=== PATIENT | female | born 1930 | race Caucasian/White ===

== ENCOUNTER 2016-06-01 10:42 | Emergency (ER) | payer OTHER ==
[~2016-06-01] VITALS: Ht 147.3 cm; Wt 45.3 kg
[~2016-06-01 10:42] MED LIST: AMLO10 PO; ASPI81 PO; BISA10SU8 PR; FOSA70TA PO; LEVO75TA3 PO; LISI10TA PO; MAGN1SOL2 PO; MULT1TAB46 PO; OMEP20CA5 PO; OXYB5TAB33 PO; PACE200T4 PO; POLY119S PO; TIMO0.5S29 OP; ZOCO40TA PO
[2016-06-01 10:54] VITALS: BP_SYST 148; BP_SYST 155; BP_DIAS 48; BP_DIAS 59; PULSE 64; RESP 16; TEMP 97.5; O2SAT 97
[2016-06-01] MEDS ORDERED: MULTTAB67 PO (11:48)
[2016-06-01] MEDS ORDERED: OXYB5TAB10 PO (11:48)
[2016-06-01] MEDS ORDERED: MIRA33504 PO (11:48)
[2016-06-01] MEDS ORDERED: LEVO75TA3 PO (11:48)
[2016-06-01] MEDS ORDERED: OMEP40CA2 PO (11:48)
[2016-06-01] MEDS ORDERED: LISI10TA PO (11:50)
[2016-06-01] MEDS ORDERED: AMIO200T PO (11:53)
[2016-06-01] MEDS ORDERED: AMLO10 PO (11:53)
[2016-06-01] MEDS ORDERED: FOSA70TA PO (11:53)
--- NOTE | 2016-06-01 12:15 | PD ---
HPI Chief Complaint: Fall Time Seen by Provider: 11:55 Travel History International Travel<30 days: No Contact w/Intl Traveler<30days: No Traveled to known affect area: No History of Present Illness HPI Patient is an 85-year-old female who presents to emergency room with complaints of right-sided toe pain after fall today. Patient reports that she tripped over her cat last night, reports that when she fell, she landed on her right side. Patient adamently denies any trauma or injury to her head/neck. Reports no LOC. Patient does take a baby asa daily. Patient reports that she was able to ambulate after her fall. Denies any hip pain. Patient reports that she woke up this morning and had increased pain and swelling to her right big toe. Denies ankle pain. Patient with no other c/o. Denies neck pain/back pain/ abdominal pain. PFSH Past Medical History Hx Anticoagulant Therapy: Yes (asa 81mg) Arthritis: Yes Asthma: No Autoimmune Disease: No Blood Disorders: No Anxiety: Yes Depression: No Heart Rhythm Problems: No Cancer: No Cardiovascular Problems: Yes (htn on meds) High Cholesterol: Yes Chemotherapy: Yes Chest Pain: No Congestive Heart Failure: No COPD: No Cerebrovascular Accident: No Diabetes: No Diminished Hearing: Yes ([place]) Endocrine: No Gastrointestinal Disorders: Yes (COLITIS, abd hernia not repaired) GERD: Yes Glaucoma: Yes Genitourinary: No Headaches: No Hepatitis: No Hiatal Hernia: No Hypertension: Yes Kidney Stones: Yes Musculoskeletal: Yes Neurologic: No Psychiatric: No Reproductive: No Respiratory: Yes (THROAT IRRITATION/MUCUS) Myocardial Infarction: No Radiation Therapy: No Renal Failure: No Seizures: No Sickle Cell Disease: No Sleep Apnea: No Thyroid Disease: Yes Ulcer: No Tetanus Vaccination: < 5 Years Influenza Vaccination: No ?: Not Menopausal: Yes : 5 Para: 2 Miscarriage: 3 : 0 Tubal Ligation: Yes Past Surgical History Abdominal Surgery: Yes ([facility] / C-SECTIONS X2 ) AICD: No Section: Yes ("two " one child only lived for one week) Cholecystectomy: Yes Eye Surgery: Yes (right cataract surgery) Pacemaker: No Other Surgery: Yes (ULCER ON NECK) Social History Alcohol Use: Yes (seldom on special events) Tobacco Use: No Substance Use: No Allergies-Medications (Allergen,Severity, Reaction): Coded Allergies: No Known Allergies (Verified , 06/01/16) Reported Meds & Prescriptions Reported Meds & Active Scripts Active Reported Amiodarone (Amiodarone HCl) 200 Mg Tab 200 Mg PO DAILY Norvasc (Amlodipine Besylate) 10 Mg Tab 10 Mg PO DAILY Fosamax (Alendronate Sodium) 70 Mg Tab 70 Mg PO Q7D Lisinopril-Hctz 10-12.5 Mg Tab 1 Tab PO DAILY Levothyroxine (Levothyroxine Sodium) 75 Mcg Tab 75 Mcg PO DAILY Omeprazole 40 Mg Cap 40 Mg PO DAILY Multiple Vitamin 1 Tab 1 Tab PO DAILY Ditropan (Oxybutynin Chloride) 5 Mg Tab 5 Mg PO Q12HR Miralax Powder (Polyethylene Glycol 3350 Powder) 17 Gm Powd 17 Gm PO DAILY PRN Mix and dissolve one measuring cap-ful (17 grams) in water or juice. Review of Systems General / Constitutional: No: Fever Eyes: No: Visual changes HENT: No: Headaches Cardiovascular: No: Chest Pain or Discomfort Respiratory: No: Shortness of Breath Gastrointestinal: No: Abdominal Pain Genitourinary: No: Dysuria Musculoskeletal: Positive: Pain (right digit #1 injury) Skin: No Rash Neurologic: No: Weakness Psychiatric: No: Depression Endocrine: No: Polydipsia Hematologic/Lymphatic: No: Easy Bruising Physical Exam Narrative GENERAL: nontoxic, nad SKIN: Warm and dry. HEAD: Atraumatic. Normocephalic. EYES: Pupils equal and round. No scleral icterus. No injection or drainage. ENT: No nasal bleeding or discharge. Mucous membranes pink and moist. NECK: Trachea midline. No JVD. CARDIOVASCULAR: Regular rate and rhythm. No murmur appreciated. RESPIRATORY: No accessory muscle use. Clear to auscultation. Breath sounds equal bilaterally. GASTROINTESTINAL: Abdomen soft, non-tender, nondistended. Hepatic and splenic margins not palpable. MUSCULOSKELETAL: No obvious deformities. No clubbing. No cyanosis. No edema. Pelvis stable, patient with good range of motion to bilateral hips, bilateral knees, bilateral ankles. Patient with pain with range of motion to right great toe digit #1 with bruising to her toe. No obvious open fractures. Pulses intact, neurovascularly intact NEUROLOGICAL: Awake and alert. No obvious cranial nerve deficits. Motor grossly within normal limits. Normal speech. PSYCHIATRIC: Appropriate mood and affect; insight and judgment normal.ss. Data Data Last Documented VS Vital Signs Date Time Temp Pulse Resp B/P Pulse Ox O2 Delivery O2 Flow Rate FiO2 06/01/16 11:38 62 16 97 Room Air 06/01/16 10:54 97.5 148/48 155/59 Orders Foot, Complete ([id number]) (06/01/16 ) MDM Medical Decision Making Medical Screen Exam Complete: Yes Emergency Medical Condition: Yes Interpretation(s) Vital Signs Date Time Temp Pulse Resp B/P Pulse Ox O2 Delivery O2 Flow Rate FiO2 06/01/16 11:38 62 16 97 Room Air 06/01/16 10:54 97.5 64 16 148/48 97 155/59 Differential Diagnosis Toe fracture, metatarsal fracture, toe sprain Narrative Course Patient is an 85-year-old female who presents to emergency room for evaluation of right-sided toe pain (digit #1 ) after she tripped over her cat last night. Patient reports no trauma to head or neck, denies any loss of consciousness. Patient reports that she woke up this morning had increased pain and swelling to her right toe, digit #1. Patient reports that she has been able to ambulate without any difficulty, patient concerned for possible fracture to her toe. Patient currently does take a baby aspirin every several day, currently is not on any other anticoagulants. Patient with no other complaints at this time. X-ray of right foot ordered for evaluation of possible fracture Last Impressions Foot X-Ray 06/01/16 0000 Signed Impressions: Service Date/Time: Wednesday, June 01, 2016 12:02 - CONCLUSION: Intact right foot. Dirk Castro MD Patient with no acute fractures, patient will follow-up with a primary care doctor return to emergency room as needed Diagnosis Primary Impression: Toe contusion Qualified Code: S90.111A - Contusion of right great toe without damage to nail , initial encounter Additional Impression: Sprain of toe Qualified Code: S93.509A - Sprain of toe, initial encounter Patient Instructions: General Instructions Additional Instructions: Please follow-up with your primary care doctor and return to the emergency room as needed Please take Tylenol or Motrin for pain Apply ice to your right big toe for 10 minutes at a time Disposition: 01 DISCHARGE HOME Condition: Stable Quynh Whatley DO Jun 01, 2016 12:14
--- NOTE | 2016-06-01 12:27 | RADHPO ---
EXAM DATE/TIME: 06/01/2016 12:02 [facility] COMPARISON: No previous studies available for comparison. INDICATIONS : Fell, complains of pain and swelling of right foot, first digit. MEDICAL HISTORY : None. SURGICAL HISTORY : None. ENCOUNTER: Initial ACUITY: 2 days PAIN SCORE: 3/10 LOCATION: Right foot, first digit FINDINGS: No fracture or subluxation seen in the right foot. Moderate degenerative changes are seen of the sesa moids. There is a moderate-sized heel spur. CONCLUSION: Intact right foot. Dirk Castro MD on June 01, 2016 at 12:25 Board Certified Radiologist. This report was verified electronically.
== END 2016-06-01 12:51 | disposition home or self-care (01) ==
LOC: PHED 10:42
DX: S90.111A Contusion of right great toe without damage to nail, initial encounter (principal); S93.501A Unspecified sprain of right great toe, initial encounter; Z79.01 Long term (current) use of anticoagulants; I10 Essential (primary) hypertension; E78.00 Pure hypercholesterolemia, unspecified; K21.9 Gastro-esophageal reflux disease without esophagitis; E07.9 Disorder of thyroid, unspecified; W01.0XXA Fall on same level from slipping, tripping and stumbling without subsequent striking against object, initial encounter; Y92.009 Unspecified place in unspecified non-institutional (private) residence as the place of occurrence of the external cause; Y99.8 Other external cause status
CPT/HCPCS: 73630; 99283; L3260

== ENCOUNTER 2016-10-27 07:01 | Emergency (ER) | payer OTHER ==
[~2016-10-27] VITALS: Ht 149.9 cm; Wt 45.0 kg
[~2016-10-27 07:01] MED LIST changes: +AMIO200T PO; -ASPI81 PO; -BISA10SU8 PR; -MAGN1SOL2 PO; +MIRA33504 PO; -MULT1TAB46 PO; +MULTTAB67 PO; -OMEP20CA5 PO; +OMEP40CA2 PO; +OXYB5TAB10 PO; -OXYB5TAB33 PO; -PACE200T4 PO; -POLY119S PO; -TIMO0.5S29 OP; -ZOCO40TA PO
[2016-10-27 07:08] VITALS: BP 128/89; PULSE 54; RESP 17; TEMP 97.6; O2SAT 98
[2016-10-27] MEDS ORDERED: HYDR-3516 PO (07:25)
[2016-10-27] MEDS ORDERED: TIMO5TAB PO (07:25)
[2016-10-27] MEDS ORDERED: SIMV20TA PO (07:25)
[2016-10-27] MEDS ORDERED: ONDA1TAB17 PO (07:25)
[2016-10-27] MEDS ORDERED: MORPHINE SULFATE 4 MG/ML INJ IV PUSH ONE (07:30)
[2016-10-27] MEDS ORDERED: MECLIZINE HCL 25 MG TAB PO ONE (07:30)
[2016-10-27] MEDS ORDERED: ONDANSETRON HCL 4 MG/2 ML VIAL IV PUSH ONE (07:30)
[2016-10-27 07:35] VITALS: O2SAT 97
--- NOTE | 2016-10-27 08:11 | RADRPT ---
EXAM DATE/TIME: 10/27/2016 07:41 [facility] COMPARISON: CHEST SINGLE AP, August 28, 2015, 12:19. INDICATIONS : Pain, left side of neck. MEDICAL HISTORY : None. SURGICAL HISTORY : Nephrectomy, right. None. ENCOUNTER: Initial ACUITY: 2 months PAIN SCORE: 6/10 LOCATION: Left neck. FINDINGS: Portable AP view of the chest demonstrates cardiac silhouette size at the upper limits for normal wit h calcification of the aorta. EKG lines overlie the patient. No pleural effusion, airspace consolidat ion, or pneumothorax is identified. Bones and soft tissues demonstrate no acute finding. CONCLUSION: No acute cardiopulmonary abnormality is identified. Cardiac silhouette size remains at the upper limi ts for normal. Dirk Osorio MD on October 27, 2016 at 8:09 Board Certified Radiologist. This report was verified electronically.
--- NOTE | 2016-10-27 08:13 | RADRPT ---
EXAM DATE/TIME: 10/27/2016 07:37 [facility] COMPARISON: No previous studies available for comparison. INDICATIONS : Pain, left side of neck. MEDICAL HISTORY : None. SURGICAL HISTORY : None. ENCOUNTER: Initial ACUITY: 2 months PAIN SCORE: 6/10 LOCATION: Left neck. FINDINGS: Single lateral view of the cervical spine demonstrates no fracture or dislocation through the C7 leve l. C7-T1 junction is not visualized. There is 2 mm of anterolisthesis of C4 on C5. There is no prever tebral soft tissue swelling. Decreased disc height is present at C3-C4 through C6-C7. CONCLUSION: No fracture is visualized through C7. There is 2 mm of anterolisthesis of C4 on C5. Multilevel degene rative disc disease is present. Dirk Osorio MD on October 27, 2016 at 8:10 Board Certified Radiologist. This report was verified electronically.
--- NOTE | 2016-10-27 08:16 | RADRPT ---
EXAM DATE/TIME: 10/27/2016 07:43 [facility] COMPARISON: CT BRAIN W/O CONTRAST, August 28, 2015, 12:51. INDICATIONS : Tremors, syncope. RADIATION DOSE: 57.00 CTDIvol (mGy) MEDICAL HISTORY : Hypertension. Glacuoma SURGICAL HISTORY : Cholecystectomy. ENCOUNTER: Initial ACUITY: 2 days PAIN SCALE: 0/10 LOCATION: Bilateral cranial TECHNIQUE: Multiple contiguous axial images were obtained of the head. Using automated exposure control and adj ustment of the mA and/or kV according to patient size, radiation dose was kept as low as reasonably a chievable to obtain optimal diagnostic quality images. DICOM format image data is available electro nically for review and comparison. FINDINGS: CEREBRUM: There is generalized cerebral atrophy with severe periventricular white matter low attenuation. Findi ngs are stable. Ventricles are enlarged but stable and within the range of expected given the degree of atrophy. No midline shift, mass lesion, hemorrhage or acute infarction. No extra-axial fluid col lections are seen. There is intracranial internal carotid artery calcification. POSTERIOR FOSSA: The cerebellum and brainstem demonstrate no acute finding. The 4th ventricle is midline. The cerebe llopontine angle is unremarkable. EXTRACRANIAL: Visualized sinuses are clear. SKULL: The calvaria is intact. No evidence of skull fracture. CONCLUSION: 1. Stable noncontrast head CT. No acute intracranial abnormality is identified. 2. Chronic changes include generalized atrophy and severe periventricular white matter change charact eristic of chronic microvascular ischemia. Dirk Osorio MD on October 27, 2016 at 8:11 Board Certified Radiologist. This report was verified electronically.
[2016-10-27 08:25] LABS: AUTOMATED NEUTROPHIL # 4.8 TH/MM3 (1.8-7.7); BASOPHIL % 0.4 % (0.0-2.0); EOSINOPHIL # 0.2 TH/MM3 (0-0.4); EOSINOPHIL % 2.4 % (0.0-4.0); HEMATOCRIT 36.7 % (35.0-46.0); HEMO FLAGS DIFF FINAL; LYMPH % 23.6 % (9.0-44.0); LYMPHOCYTE # 1.9 TH/MM3 (1.0-4.8); MEAN CELL VOLUME 88.2 FL (80.0-100.0); MEAN CORPUSCULAR HEMOGLOBIN 29.9 PG (27.0-34.0); MEAN CORPUSCULAR HGB CONC 33.8 % (32.0-36.0); MONO % 14.3 % (0.0-8.0); NEUT % 59.3 % (16.0-70.0); PLATELET COUNT 202 TH/MM3 (150-450); RED BLOOD COUNT 4.17 MIL/MM3 (4.00-5.30); RED CELL DISTRIBUTION WIDTH 13.5 % (11.6-17.2); WHITE BLOOD COUNT 8.1 TH/MM3 (4.0-11.0)
[2016-10-27 08:26] LABS: BLOOD, URINE NEG (NEG); GLUCOSE,URINE NEG (NEG); KETONE, URINE NEG (NEG); NITRITE,URINE NEG (NEG)
[2016-10-27 08:31] LABS: URINE COLOR YELLOW (YELLW/STRAW)
[2016-10-27 08:33] LABS: CHLORIDE 104 MEQ/L (98-107); COMMENT (UR) CULT NOT INDICATED; CULTURE IF INDICATED CULT NOT INDICATED; POTASSIUM 4.4 MEQ/L (3.5-5.1); SODIUM (NA) 135 MEQ/L (136-145); SQUAMOUS EPITHELIAL CELL URINE 0-5 /hpf (0-5); WBC, URINE 0-2 /hpf (0-5)
--- NOTE | 2016-10-27 08:35 | PD ---
HPI Chief Complaint: Syncope/Near-Syncope Time Seen by Provider: 07:13 Travel History International Travel<30 days: No Contact w/Intl Traveler<30days: No Traveled to known affect area: No History of Present Illness HPI 86-year-old female complains generalized malaise and weakness and dizziness and neck pain. Patient states that she has intermittent dizziness with generalized malaise and weakness recently. Patient states that she has increasing left- sided neck pain for the past 3 days. Patient denies any recent injury. Patient states that she has been falling asleep on a couch and is not sure whether she passed out on the couch or not. Patient denies any headache. Patient denies any visual change. Patient states that the pain is sharp pain localized left sided neck. Patient denies any pain radiation. Patient denies any fever chills. Patient denies any recent neck injury. Patient denies any chest pain or shortness of breath. Patient denies abdominal pain. Patient denies any nausea vomiting diarrhea. Patient denies dysuria or frequency. Patient states that she has been shaking extremity shaking recently. Patient denies any focal weakness or numbness of extremity. Patient has history hypertension, hypothyroidism, GERD, cardiac arrhythmia. Patient is on amiodarone. PFSH Past Medical History Hx Anticoagulant Therapy: Yes (asa 81mg) Arthritis: Yes Asthma: No Autoimmune Disease: No Blood Disorders: No Anxiety: Yes Depression: No Heart Rhythm Problems: No Cancer: No Cardiovascular Problems: Yes (htn on meds) High Cholesterol: Yes Chemotherapy: Yes Chest Pain: No Congestive Heart Failure: No COPD: No Cerebrovascular Accident: No Diabetes: No Diminished Hearing: Yes ([place]) Endocrine: No Gastrointestinal Disorders: Yes (COLITIS, abd hernia not repaired) GERD: Yes Glaucoma: Yes Genitourinary: No Headaches: No Hepatitis: No Hiatal Hernia: No Hypertension: Yes Implanted Vascular Access Dvce: No Kidney Stones: Yes Musculoskeletal: Yes Neurologic: No Psychiatric: No Reproductive: No Respiratory: Yes (THROAT IRRITATION/MUCUS) Myocardial Infarction: No Radiation Therapy: No Renal Failure: No Seizures: No Sickle Cell Disease: No Sleep Apnea: No Thyroid Disease: Yes Ulcer: No Menopausal: Yes : 5 Para: 2 Miscarriage: 3 : 0 Tubal Ligation: Yes Past Surgical History Abdominal Surgery: Yes ([facility] / C-SECTIONS X2 ) AICD: No Section: Yes ("two " one child only lived for one week) Cholecystectomy: Yes Eye Surgery: Yes (right cataract surgery) Pacemaker: No Other Surgery: Yes (ULCER ON NECK) Social History Alcohol Use: Yes (seldom on special events) Tobacco Use: No Substance Use: No Allergies-Medications (Allergen,Severity, Reaction): Coded Allergies: No Known Allergies (Verified , 10/27/16) Reported Meds & Prescriptions Reported Meds & Active Scripts Active Reported Hydrocodone-Acetaminophen 5-325 mg Tab 1 Tab PO Q4H PRN Ondansetron (Ondansetron HCl) 8 Mg Tab 8 Mg PO TID PRN Simvastatin 20 Mg Tab 20 Mg PO DAILY Timolol (Timolol Maleate) 5 Mg Tab 5 Mg PO BID Amiodarone (Amiodarone HCl) 200 Mg Tab 200 Mg PO DAILY Norvasc (Amlodipine Besylate) 10 Mg Tab 10 Mg PO DAILY Lisinopril-Hctz 10-12.5 Mg Tab 1 Tab PO DAILY Levothyroxine (Levothyroxine Sodium) 75 Mcg Tab 75 Mcg PO DAILY Omeprazole 40 Mg Cap 20 Mg PO DAILY Ditropan (Oxybutynin Chloride) 5 Mg Tab 5 Mg PO Q12HR Review of Systems General / Constitutional: No: Fever Eyes: No: Visual changes HENT: Positive: Neck Pain, No: Headaches Cardiovascular: No: Chest Pain or Discomfort Respiratory: No: Shortness of Breath Gastrointestinal: No: Abdominal Pain Genitourinary: No: Dysuria Musculoskeletal: No: Pain Skin: No Rash Neurologic: No: Weakness Psychiatric: No: Depression Endocrine: No: Polydipsia Hematologic/Lymphatic: No: Easy Bruising Physical Exam Narrative GENERAL: Well-nourished, well-developed patient. SKIN: Focused skin assessment warm/dry. HEAD: Normocephalic. EYES: No scleral icterus. No injection or drainage. NECK: Supple, trachea midline. No JVD or lymphadenopathy. Mild tenderness on palpation left sided neck area. No midline tenderness. No meningismus. CARDIOVASCULAR: Regular rate and rhythm without murmurs, gallops, or rubs. RESPIRATORY: Breath sounds equal bilaterally. No accessory muscle use. GASTROINTESTINAL: Abdomen soft, non-tender, nondistended. MUSCULOSKELETAL: No cyanosis, or edema. BACK: Nontender without obvious deformity. No CVA tenderness. Neurologic exam: Patient is awake and alert oriented 3. No obvious focal neurological deficit. Data Data Last Documented VS Vital Signs Date Time Temp Pulse Resp B/P Pulse Ox O2 Delivery O2 Flow Rate FiO2 10/27/16 07:35 97 Room Air 10/27/16 07:08 97.6 54 17 128/89 Orders Electrocardiogram (10/27/16 07:24) Complete Blood Count With Diff (10/27/16 07:24) Comprehensive Metabolic Panel (10/27/16 07:24) Prothrombin Time / Inr (Pt) (10/27/16 07:24) Act Partial Throm Time (Ptt) (10/27/16 07:24) Urinalysis - C+S If Indicated (10/27/16 07:24) Chest, Single Ap (10/27/16 07:24) Ct Brain W/O Iv Contrast(Rout) (10/27/16 07:24) Iv Access Insert/Monitor (10/27/16 07:24) Ecg Monitoring (10/27/16 07:24) Oximetry (10/27/16 07:24) Spine, Cervical - Lateral Only (10/27/16 07:24) Meclizine (Antivert) (10/27/16 07:30) Morphine Inj (Morphine Inj) (10/27/16 07:30) Ondansetron Inj (Zofran Inj) (10/27/16 07:30) Sodium Chlorid 0.9% 500 Ml Inj (Ns 500 M (10/27/16 08:45) Labs Laboratory Tests Test 10/27/16 08:20 White Blood Count 8.1 TH/MM3 Red Blood Count 4.17 MIL/MM3 Hemoglobin 12.4 GM/DL Hematocrit 36.7 % Mean Corpuscular Volume 88.2 FL Mean Corpuscular Hemoglobin 29.9 PG Mean Corpuscular Hemoglobin 33.8 % Concent Red Cell Distribution Width 13.5 % Platelet Count 202 TH/MM3 Mean Platelet Volume 10.0 FL Neutrophils (%) (Auto) 59.3 % Lymphocytes (%) (Auto) 23.6 % Monocytes (%) (Auto) 14.3 % Eosinophils (%) (Auto) 2.4 % Basophils (%) (Auto) 0.4 % Neutrophils # (Auto) 4.8 TH/MM3 Lymphocytes # (Auto) 1.9 TH/MM3 Monocytes # (Auto) 1.2 TH/MM3 Eosinophils # (Auto) 0.2 TH/MM3 Basophils # (Auto) 0.0 TH/MM3 CBC Comment DIFF FINAL Differential Comment Prothrombin Time 10.7 SEC Prothromb Time International 1.0 RATIO Ratio Activated Partial 28.3 SEC Thromboplast Time Urine Color YELLOW Urine Turbidity CLEAR Urine pH 6.0 Urine Specific [place] 1.006 Urine Protein 30 mg/dL Urine Glucose (UA) NEG mg/dL Urine Ketones NEG mg/dL Urine Occult Blood NEG Urine Nitrite NEG Urine Bilirubin NEG Urine Leukocyte Esterase NEG Urine WBC 0-2 /hpf Urine Squamous Epithelial 0-5 /hpf Cells Microscopic Urinalysis Comment CULT NOT INDICATED Sodium Level 135 MEQ/L Potassium Level 4.4 MEQ/L Chloride Level 104 MEQ/L Carbon Dioxide Level 22.6 MEQ/L Anion Gap 8 MEQ/L Blood Urea Nitrogen 34 MG/DL Creatinine 2.50 MG/DL Estimat Glomerular Filtration 18 ML/MIN Rate Random Glucose 102 MG/DL Calcium Level 8.9 MG/DL Total Bilirubin 0.6 MG/DL Aspartate Amino Transf 70 U/L (AST/SGOT) Alanine Aminotransferase 57 U/L (ALT/SGPT) Alkaline Phosphatase 216 U/L Total Protein 7.8 GM/DL Albumin 3.3 GM/DL MDM Medical Decision Making Medical Screen Exam Complete: Yes Emergency Medical Condition: Yes Interpretation(s) Last Impressions Head CT 10/27/16723 Signed Impressions: Service Date/Time: Thursday, October 27, 2016 07:43 - CONCLUSION: 1. Stable noncontrast head CT. No acute intracranial abnormality is identified. 2. Chronic changes include generalized atrophy and severe periventricular white matter change characteristic of chronic microvascular ischemia. Dirk Osorio MD Chest X-Ray 10/27/16723 Signed Impressions: Service Date/Time: Thursday, October 27, 2016 07:41 - CONCLUSION: No acute cardiopulmonary abnormality is identified. Cardiac silhouette size remains at the upper limits for normal. Dirk Osorio MD Cervical Spine X-Ray 10/27/16723 Signed Impressions: Service Date/Time: Thursday, October 27, 2016 07:37 - CONCLUSION: No fracture is visualized through C7. There is 2 mm of anterolisthesis of C4 on C5. Multilevel degenerative disc disease is present. Dirk Osorio MD 8:52 AM. CBC within normal limit. BUN 34. Creatinine 2.5. AST 78. ALT 57. Alkaline phosphatase 216. UA is negative. Differential Diagnosis Differential diagnosis including musculoskeletal spasm, arthralgia, fracture, vertigo, intracranial pathology, electrolyte imbalance, dehydration. Narrative Course 86-year-old female with dizziness, neck pain, general malaise and weakness. Morphine 1 mg IV. Zofran 4 mg IV. Meclizine 25 mg by mouth. Normal saline solution 500 cc IV bolus. Diagnosis Primary Impression: Arthralgia, cervical spine Additional Impressions: Acute onset of severe vertigo Renal insufficiency Patient Instructions: General Instructions Additional Instructions: Encourage by mouth fluid. Meclizine as needed for dizziness. Tylenol with Codeine for neck pain. Take stool softener with pain medication. Follow-up with personal physician. Return if worse. Med/Other Pt SpecificInfo: Prescription(s) given Scripts Meclizine 25 Mg Tab25 Mg PO TID PRN (VERTIGO) #21 TAB Prov:Evan Weaver MD 10/27/16 Acetaminophen-Codeine (Tylenol-Codeine #3)300-30 mg Tab1 Tab PO Q6HR PRN (PAIN SCALE 1 TO 10) #30 TAB Prov:Evan Weaver MD 10/27/16 Disposition: 01 DISCHARGE HOME Condition: Stable Evan Weaver MD Oct 27, 2016 08:35
[2016-10-27 08:36] LABS: ANION GAP 8 MEQ/L (5-15); BICARBONATE 22.6 MEQ/L (21.0-32.0)
[2016-10-27 08:37] LABS: APTT (PATIENT) 28.3 SEC (24.3-30.1); BLOOD UREA NITROGEN 34 MG/DL (7-18); PROTHROMBIN TIME - PATIENT 10.7 SEC (9.8-11.6)
[2016-10-27 08:40] LABS: ALT (GPT) 57 U/L (10-53); AST (GOT) 70 U/L (15-37); GLOMERULAR FILTRATION RATE 18 ML/MIN (>89)
[2016-10-27 08:41] LABS: TOTAL BILIRUBIN ADULT 0.6 MG/DL (0.2-1.0)
[2016-10-27 08:42] LABS: ALKALINE PHOSPHATASE 216 U/L (45-117)
[2016-10-27] MEDS ORDERED: SODIUM CHLORID 0.9% 500 ML INJ 500 ML IV ONE (08:45)
[2016-10-27] MEDS ORDERED: MECL-62 PO (09:00)
[2016-10-27] MEDS ORDERED: TYLETAB34 PO (09:00)
[2016-10-27 09:37] VITALS: BP 116/72; PULSE 70; RESP 16; O2SAT 97
--- NOTE | 2016-10-27 13:42 | EKG ---
Date Performed: 10/27/2016 Time Performed: 07:32:12 PTAGE: 86 years EKG: SINUS BRADYCARDIA BORDERLINE LEFT AXIS DEVIATION NONSPECIFIC T-WAVE ABNORMALITY BORDERLINE ECG PREVIOUS TRACING : 08/29/2015 07.01 Since previous tracing, no significant change noted DOCTOR: Damaris Porter Interpretating Date/Time 10/27/2016 13:39:32
== END 2016-10-27 09:38 | disposition home or self-care (01) ==
LOC: PHED 07:01
DX: M54.2 Cervicalgia (principal); R42 Dizziness and giddiness; N28.9 Disorder of kidney and ureter, unspecified; I10 Essential (primary) hypertension
CPT/HCPCS: 70450; 71010; 72020; 80053; 81001; 85025; 85610; 85730; 93005; 96361; 96374; 96375; 99285; J2270; J2405; J7040

== ENCOUNTER → 2016-12-26 | Outpatient (CLI) | payer OTHER ==
[~2016-12-26] MED LIST changes: +CALC1TAB87 PO; -FOSA70TA PO; +LIDOCAINE HCL 1% PF 5 ML AMPULE OTHER ONE; +MECL-62 PO; -MIRA33504 PO; -MULTTAB67 PO; +ONABOTULINUMTOXINA INJ 100 UNITS/VIAL ONE; +ONDA1TAB17 PO; +PROPOFOL 200 MG/20 ML AMP IV ONE; +SIMV20TA PO; +TIMO0.5S30 EACH EYE; +TYLETAB34 PO
[2016-12-26 08:55] VITALS: BP 182/73; PULSE 60; RESP 18; TEMP 97.9; O2SAT 99
--- NOTE | 2016-12-26 11:34 | RADRPT ---
EXAM DATE/TIME: 12/26/2016 11:03 [facility] COMPARISON: No previous studies available for comparison. INDICATIONS : Wire dilitation FLUORO TIME: 1.40 minutes IMAGE COUNT: 3 CONTRAST: Instilled by Ordering Physician MEDICAL HISTORY : None. SURGICAL HISTORY : None. ENCOUNTER: Initial ACUITY: 1 day PAIN SCORE: Non-responsive. LOCATION: Abdomen FINDINGS: Images demonstrate a wire extending through the region of the common bile duct. No contrast was Mr. CONCLUSION: 1. ERCP as above Alexx Davis MD on December 26, 2016 at 11:32 Board Certified Radiologist. This report was verified electronically.
--- NOTE | 2016-12-26 11:36 | GIPROC ---
[facility] [address] [facility]. [facility], [address] EGD WITH DILATION PROCEDURE REPORT EXAM DATE: 12/26/2016 PATIENT NAME: Rachel Pompa MR#: [id number] BIRTHDATE: 1930 ATTENDING: Bridgett Oleary MD ORDER #: [id number] TRACTOR OPERATOR LASER LEVELING: Linda Yo RN STATUS: outpatient INDICATIONS: The patient is a 86 yr old female here for an EGD with dilation due to dysphagia , pyloric stricture esophageal stricture PROCEDURE PERFORMED: EGD w/ biopsy EGD w/ dilation of esophagus via guidewire EGD w/ directed submucosal injection(s), any substance egd with duodenal ballon dilatation MEDICATIONS: Per Anesthesia and None. TOPICAL ANESTHETIC: none CONSENT: The patient understands the risks and benefits of the procedure and understands that these risks include, but are not limited to: sedation, allergic reaction, infection, perforation and/or bleeding. Alternative means of evaluation and treatment include, among others: physical exam, x-rays, and/or surgical intervention. The patient elects to proceed with this endoscopic procedure. medical equipment was checked for proper function. Hand hygiene and appropriate measures for infection prevention was taken. After the risks, benefits and alternatives of the procedure were thoroughly explained, Informed consent was verified, confirmed and timeout was successfully executed by the treatment team. The patient was anesthetized with topical anesthesia and the endoscope was introduced through the mouth and advanced to the second portion of the duodenum. The instrument was slowly withdrawn as the mucosa was fully examined. Pyloric stenosis s/p ballon dilatation-under fluoroscopy-sizes 6.7.8;8,5;9.5;10.5-each balloon inflated for 1 minute each time stricture distal esophagus -dilated with Savary -15. BOTOX injected 100 units-25 units in each quadrant in pyloric channel. Dilation was performed at gastroesophageal junction and pylorus. DILATOR: SIZE(S): RESISTANCE: HEME: APPEARANCE: Dilator: Balloon over guidewire Dilator: Savary over guidewire Size(s): 6,7.8;8.5,9.5,10.5 Size(s): 15 Resistance: minimal COMMENT: Retroflexed views revealed a hiatal hernia ADVERSE EVENTS: There were no complications. IMPRESSIONS: 1. Pyloric stenosis s/p ballon dilatation-under fluoroscopy-sizes 6.7.8;8,5;9.5;10.5-each balloon inflated for 1 minute each time stricture distal esophagus -dilated with Savary -15 2. BOTOX injected 100 units-25 units in each quadrant in pyloric channel 3. Retroflexed views revealed a hiatal hernia RECOMMENDATIONS: 1. Await biopsy results. Biopsy results will not be ready for 7-10 days. If you don't hear from us in two weeks, call our office for biopsy results. 2. Anti-reflux regimen 3. Continue PPI 4. Dilatations PRN REPEAT EXAM: EGD pending biopsy results Bridgett Oleary MD eSigned: Bridgett Oleary MD 12/26/2016 11:36 AM cc: Jen Covington M.D. DOCUMENT ADDENDUM eSigned: Bridgett Oleary MD 12/28/2016 11:42 AM Reason for addendum: [x] Correction of inaccurate information [ ] Recently acquired lab/pathology results [ ] Additional information Comments: no biopsy done PATIENT NAME: Rachel Pompa MR#: [id number]
[2016-12-26 12:10] VITALS: BP 186/68; PULSE 59; RESP 18; TEMP 98; O2SAT 96
== END ==
LOC: HOR 07:44
PROVIDERS: ATTEND Internal Medicine Gastroenterology
DX: K22.2 Esophageal obstruction (principal); K31.1 Adult hypertrophic pyloric stenosis; K44.9 Diaphragmatic hernia without obstruction or gangrene; I48.91 Unspecified atrial fibrillation; R79.89 Other specified abnormal findings of blood chemistry; R74.8 Abnormal levels of other serum enzymes; D64.9 Anemia, unspecified; I10 Essential (primary) hypertension; E78.5 Hyperlipidemia, unspecified; E03.9 Hypothyroidism, unspecified; K55.9 Vascular disorder of intestine, unspecified
CPT/HCPCS: 00740; 43248; 43249; 76000; C1726; C1769; J0585

== ENCOUNTER → 2017-01-09 | Outpatient (CLI) | payer OTHER ==
[~2017-01-09] MED LIST changes: -LIDOCAINE HCL 1% PF 5 ML AMPULE OTHER ONE; -ONABOTULINUMTOXINA INJ 100 UNITS/VIAL ONE; -PROPOFOL 200 MG/20 ML AMP IV ONE
[2017-01-09 13:13] LABS: BLOOD GAS BASE EXCESS -3.7 mmol/L (-2-2); BLOOD GAS CARBOXYHEMOGLOBIN 1.4 % (0-4); BLOOD GAS HCO3 20 mmol/L (22-26); BLOOD GAS O2 HGB SATURATION 93 % (90-100); BLOOD GAS PCO2 34 mmHg (38-42); BLOOD GAS PO2 77 mmHg (61-120); BLOOD GAS TOTAL HGB 11.3 G/DL (12.0-16.0); CRITICAL VALUE NO; DRAW SITE RT RADIAL; FIO2 21 %; NUMBER OF ARTERIAL PUNCTURES 1; STAT NO; TEMP CORR TO 98.6; ULNAR PULSE PRESENT
--- NOTE | 2017-01-14 10:32 | RSPPFT ---
DATE OF PROCEDURE: 01/09/17 COMMENTS: Spirometry with FVC of 1.0, FEV1 of 0.9, FEV1/FVC ratio at 88%. Lung volumes were not performed. A non-significant response to acutely inhaled bronchodilator noted. Room air arterial blood gases show pH of 7.40, PCO2 of 34, PO2 of 77. IMPRESSION: 1. Decreased flow rates. 2. No evidence of obstruction. 3. Possible airways restriction. 4. Adequate oxygenation and alveolar ventilation. 5. If clinically warranted, lung volumes may be helpful.
== END ==
LOC: HRSP 11:12
PROVIDERS: ATTEND Family Medicine
DX: R06.09 Other forms of dyspnea (principal)
CPT/HCPCS: 36600; 82805; 94060; 94726; 94729

== ENCOUNTER 2017-08-19 10:06 | Emergency (ER) | payer OTHER ==
[~2017-08-19] VITALS: Ht 149.9 cm; Wt 45.0 kg
[~2017-08-19 10:06] MED LIST changes: -ONDA1TAB17 PO; +ONDA8TAB7 PO; -OXYB5TAB10 PO; +OXYB5TAB8 PO
[2017-08-19 10:13] VITALS: BP 119/76; PULSE 69; RESP 18; TEMP 97.5; O2SAT 100
[2017-08-19] MEDS ORDERED: SERT25TA83 PO (10:22)
[2017-08-19] MEDS ORDERED: DOXA1TAB34 PO (10:22)
[2017-08-19 10:45] VITALS: BP 183/61; PULSE 60; RESP 16; O2SAT 100
[2017-08-19] MEDS ORDERED: ONDANSETRON HCL 4 MG/2 ML VIAL IV PUSH ONE (11:00)
--- NOTE | 2017-08-19 11:08 | PD ---
HPI Chief Complaint: GI Complaint Time Seen by Provider: 11:00 Travel History International Travel<30 days: No Contact w/Intl Traveler<30days: No Traveled to known affect area: No History of Present Illness HPI 86-year-old female came to the emergency room with history of vomiting that started apparently midnight. Patient seems to be very flustered and anxious at this point and cannot give me a straight history. Majority of the history is obtained from the EMS report. As per EMS patient called 911 but her neighbor was there who helps give some history. The vomiting was several times over the night. It is unclear if patient had any diarrhea as well. She appeared to be dehydrated with dry mucous membrane to paramedics. However vital signs were stable. Patient has been awake the entire time. Vital signs in triage was within normal limits. Blood sugar was 94 at the scene. Patient is not particularly complaining of any pain anywhere. She has an emesis bag and has been spitting into it. She says she has been nauseous. [facility] Past Medical History Narrative Medical List of her past medical, surgical, social and family history is reviewed from the nursing note. Hx Anticoagulant Therapy: Yes (asa 81mg) Arthritis: Yes Asthma: No Autoimmune Disease: No Blood Disorders: No Anxiety: Yes Depression: No Heart Rhythm Problems: No Cancer: No Cardiovascular Problems: Yes (htn on meds) High Cholesterol: Yes Chemotherapy: Yes Chest Pain: No Congestive Heart Failure: No COPD: No Cerebrovascular Accident: No Diabetes: No Diminished Hearing: Yes ([place]) Endocrine: No Gastrointestinal Disorders: Yes (COLITIS, abd hernia not repaired) GERD: Yes Glaucoma: Yes Genitourinary: No Headaches: No Hepatitis: No Hiatal Hernia: No Hypertension: Yes Implanted Vascular Access Dvce: No Kidney Stones: Yes Musculoskeletal: Yes Neurologic: No Psychiatric: No Reproductive: No Respiratory: Yes (THROAT IRRITATION/MUCUS) Myocardial Infarction: No Radiation Therapy: No Renal Failure: No Seizures: No Sickle Cell Disease: No Sleep Apnea: No Thyroid Disease: Yes Ulcer: No ?: Not Menopausal: Yes : 5 Para: 2 Miscarriage: 3 : 0 Tubal Ligation: Yes Past Surgical History Abdominal Surgery: Yes (CHOLEY / C-SECTIONS X2 ) AICD: No Section: Yes ("two " one child only lived for one week) Cholecystectomy: Yes Eye Surgery: Yes (cataract surgery) Joint Replacement: No Pacemaker: No Other Surgery: Yes (ULCER ON NECK) Social History Alcohol Use: Yes (seldom on special events) Tobacco Use: No Substance Use: No Allergies-Medications (Allergen,Severity, Reaction): Coded Allergies: No Known Allergies (Verified , 12/26/16) Comments No known drug allergies. Reported Meds & Prescriptions Reported Meds & Active Scripts Active Zofran Odt (Ondansetron Odt) 4 Mg Tab 4 Mg SL Q6HR PRN Tylenol-Codeine #3 (Acetaminophen-Codeine) 300-30 mg Tab 1 Tab PO Q6HR PRN Reported Doxazosin (Doxazosin Mesylate) 4 Mg Tab 4 Mg PO DAILY Sertraline (Sertraline HCl) 25 Mg Tab 25 Mg PO DAILY Timolol Opth Drops 0.5 % Soln 1 Drop EACH EYE BID Calcium 600 with Vitamin D (Calcium Carbonate-Cholecalciferol) 600-400 mg-Unit Tab 1 Tab PO DAILY Simvastatin 20 Mg Tab 20 Mg PO DAILY Amiodarone (Amiodarone HCl) 200 Mg Tab 200 Mg PO DAILY Norvasc (Amlodipine Besylate) 10 Mg Tab 10 Mg PO DAILY Lisinopril-Hctz 10-12.5 Mg Tab 1 Tab PO DAILY Levothyroxine (Levothyroxine Sodium) 75 Mcg Tab 75 Mcg PO DAILY Omeprazole 40 Mg Cap 20 Mg PO DAILY Narrative Medication List of her home medications reviewed from the nursing note. Review of Systems Except as stated in HPI: all other systems reviewed are Neg Gastrointestinal: Positive: Nausea, Vomiting Physical Exam Narrative GENERAL: Awake, alert, elderly, anxious, frail, moderate distress SKIN: Focused skin assessment warm/dry. HEAD: Atraumatic. Normocephalic. EYES: Pupils equal and round. No scleral icterus. No injection or drainage. ENT: No nasal bleeding or discharge. Mucous membranes pink and moist. NECK: Trachea midline. No JVD. CARDIOVASCULAR: Regular rate and rhythm. No murmur appreciated. RESPIRATORY: No accessory muscle use. Clear to auscultation. Breath sounds equal bilaterally. GASTROINTESTINAL: Abdomen soft, non-tender, nondistended. Hepatic and splenic margins not palpable. MUSCULOSKELETAL: No obvious deformities. No clubbing. No cyanosis. No edema. NEUROLOGICAL: Awake and alert. No obvious cranial nerve deficits. Motor grossly within normal limits. Normal speech. PSYCHIATRIC: Appropriate mood and affect; insight and judgment normal. Data Data Last Documented VS Vital Signs Date Time Temp Pulse Resp B/P (MAP) Pulse Ox O2 Delivery O2 Flow Rate FiO2 08/19/17 13:30 08/19/17 12:59 57 16 100 Room Air 08/19/17 10:13 97.5 Orders Orders Complete Blood Count With Diff (08/19/17 10:50) Comprehensive Metabolic Panel (08/19/17 10:50) Urinalysis - C+S If Indicated (08/19/17 10:50) Iv Access Insert/Monitor (08/19/17 10:50) Oxygen Administration (08/19/17 10:50) Oximetry (08/19/17 10:50) Lipase (08/19/17 10:50) Ondansetron Inj (Zofran Inj) (08/19/17 11:00) Sodium Chlor 0.9% 1000 Ml Inj (Ns 1000 M (08/19/17 11:15) Ct Abd/Pel W/O Iv Contrast (08/19/17 ) Hip Hop Dance Instructor / Telemetry [email or web address] (08/19/17 11:33) Electrocardiogram (08/19/17 ) Ed Discharge Order (08/19/17 12:55) Labs Laboratory Tests Test 08/19/17 10:45 White Blood Count 6.7 TH/MM3 Red Blood Count 3.73 MIL/MM3 Hemoglobin 10.6 GM/DL Hematocrit 33.1 % Mean Corpuscular Volume 88.6 FL Mean Corpuscular Hemoglobin 28.3 PG Mean Corpuscular Hemoglobin Concent 31.9 % Red Cell Distribution Width 13.1 % Platelet Count 155 TH/MM3 Mean Platelet Volume 10.9 FL Neutrophils (%) (Auto) 61.2 % Lymphocytes (%) (Auto) 27.2 % Monocytes (%) (Auto) 9.4 % Eosinophils (%) (Auto) 1.2 % Basophils (%) (Auto) 1.0 % Neutrophils # (Auto) 4.1 TH/MM3 Lymphocytes # (Auto) 1.8 TH/MM3 Monocytes # (Auto) 0.6 TH/MM3 Eosinophils # (Auto) 0.1 TH/MM3 Basophils # (Auto) 0.1 TH/MM3 CBC Comment DIFF FINAL Differential Comment Urine Collection Type CLEAN CATCH Urine Color STRAW Urine Turbidity CLEAR Urine pH 6.5 Urine Specific [place] LESS/EQUAL 1.005 Urine Protein 30 mg/dL Urine Glucose (UA) NEG mg/dL Urine Ketones NEG mg/dL Urine Occult Blood NEG Urine Nitrite NEG Urine Bilirubin NEG Urine Urobilinogen 0.2 MG/DL Urine Leukocyte Esterase NEG Urine WBC 0-2 /hpf Urine Squamous Epithelial Cells 0-3 /hpf Microscopic Urinalysis Comment CULT NOT INDICATED Blood Urea Nitrogen 36 MG/DL Creatinine 2.10 MG/DL Random Glucose 90 MG/DL Total Protein 6.9 GM/DL Albumin 3.1 GM/DL Calcium Level 8.3 MG/DL Alkaline Phosphatase 132 U/L Aspartate Amino Transf (AST/SGOT) 49 U/L Alanine Aminotransferase (ALT/SGPT) 40 U/L Total Bilirubin 0.5 MG/DL Sodium Level 136 MEQ/L Potassium Level 4.2 MEQ/L Chloride Level 107 MEQ/L Carbon Dioxide Level 19.1 MEQ/L Anion Gap 10 MEQ/L Estimat Glomerular Filtration Rate 22 ML/MIN Lipase 184 U/L MDM Medical Decision Making Medical Screen Exam Complete: Yes Emergency Medical Condition: Yes Medical Record Reviewed: Yes Interpretation(s) Twelve-lead EKG was reviewed by me. Normal sinus rhythm, left axis deviation, interventricular conduction delay, nonspecific ST-T wave changes. Heart rate of 60 bpm. Last Impressions Abdomen/Pelvis CT 08/19/17 0000 Signed Impressions: CONCLUSION: 1. Cirrhotic liver. 2. Small to moderate ascites. 3. Infrarenal abdominal aortic aneurysm measures 3.3 cm 4. Diverticulosis of the colon without diverticulitis. 5. Probable left renal cyst. 6. Small right-sided fluid containing inguinal hernia Differential Diagnosis Acute gastritis, acute gastroenteritis, dehydration, electrolyte abnormality, anxiety Narrative Course 11:33 AM patient is getting IV fluid and IV Zofran. Awaiting for blood test results. Awaiting for CT to be done and resulted. 12:[address] scan shows a multitude of issues but most of them appear to be chronic. Patient has been seen by GI specialist in the past and she can follow up with GI as an outpatient for the ascites and the cirrhosis. The liver function does not appear to be severely abnormal. Patient does have renal insufficiency which when the labs were trended appears to be recent chronic. There is a small inguinal hernia not causing any signs of obstruction on the CAT scan. In my opinion her symptoms were probably related to gastritis or gastroenteritis. I am comfortable discharging her home at this point. She has not vomited anymore. Procedures EKG Prior to Arrival: No Diagnosis Primary Impression: Acute gastroenteritis Additional Impressions: Cirrhosis Qualified Codes: K74.60 - Unspecified cirrhosis of liver; R18.8 - Other ascites Ascites Qualified Codes: R18.8 - Other ascites Inguinal hernia Qualified Codes: K40.90 - Unilateral inguinal hernia, without obstruction or gangrene, not specified as recurrent Aortic aneurysm Qualified Codes: I71.4 - Abdominal aortic aneurysm, without rupture Renal insufficiency Referrals: Octavia Vazquez MD 2 days Primary Care Physician 2 days Additional Instructions: Please return to the ER if the condition worsens or any other new concerns. Take the medication as per the prescription direction. Please follow-up with the maintenance man whose name and number been provided to you on the discharge instructions. You need to call to make an appointment prior to going in. Do not drink any alcohol or take any medication containing Tylenol/ acetaminophen. Please have your primary care physician refer you to a kidney specialist as well since your kidney functions were not normal. Med/Other Pt SpecificInfo: Prescription(s) given Scripts Ondansetron Odt (Zofran Odt) 4 Mg Tab 4 MG SL Q6HR Y for Nausea/Vomiting, #15 TAB 0 Refills Prov: Seven Ornelas MD 08/19/17 Disposition: 01 DISCHARGE HOME Condition: Stable Seven Ornelas MD August 19, 2017 11:08
[2017-08-19] MEDS ORDERED: SODIUM CHLOR 0.9% 1000 ML INJ 1,000 ML IV ONE (11:15)
[2017-08-19 11:18] LABS: BILIRUBIN, URINE NEG (NEG); BLOOD, URINE NEG (NEG); GLUCOSE,URINE NEG (NEG); KETONE, URINE NEG (NEG); NITRITE,URINE NEG (NEG); PH, URINE 6.5 (5.0-8.5); URINE LEUKOCYTE ESTERASE NEG (NEG)
[2017-08-19 11:21] LABS: AUTOMATED NEUTROPHIL # 4.1 TH/MM3 (1.8-7.7); BASOPHIL # 0.1 TH/MM3 (0-0.2); EOSINOPHIL # 0.1 TH/MM3 (0-0.4); EOSINOPHIL % 1.2 % (0.0-4.0); HEMATOCRIT 33.1 % (35.0-46.0); HEMOGLOBIN 10.6 GM/DL (11.6-15.3); LYMPH % 27.2 % (9.0-44.0); LYMPHOCYTE # 1.8 TH/MM3 (1.0-4.8); MEAN CELL VOLUME 88.6 FL (80.0-100.0); MEAN CORPUSCULAR HEMOGLOBIN 28.3 PG (27.0-34.0); MEAN CORPUSCULAR HGB CONC 31.9 % (32.0-36.0); MEAN PLATELET VOLUME 10.9 FL (7.0-11.0); MONO % 9.4 % (0.0-8.0); MONOCYTE # 0.6 TH/MM3 (0-0.9); NEUT % 61.2 % (16.0-70.0); PLATELET COUNT 155 TH/MM3 (150-450); RED BLOOD COUNT 3.73 MIL/MM3 (4.00-5.30); RED CELL DISTRIBUTION WIDTH 13.1 % (11.6-17.2); WHITE BLOOD COUNT 6.7 TH/MM3 (4.0-11.0)
[2017-08-19 11:26] LABS: URINE COLOR STRAW (YELLW/STRAW)
[2017-08-19 11:30] VITALS: BP 177/70; PULSE 58; RESP 16; O2SAT 100
[2017-08-19 11:31] LABS: CHLORIDE 107 MEQ/L (98-107); SODIUM (NA) 136 MEQ/L (136-145)
[2017-08-19 11:35] LABS: ALBUMIN 3.1 GM/DL (3.4-5.0); BICARBONATE 19.1 MEQ/L (21.0-32.0); BLOOD UREA NITROGEN 36 MG/DL (7-18); CALCIUM 8.3 MG/DL (8.5-10.1); GLUCOSE,RANDOM 90 MG/DL (74-106)
[2017-08-19 11:38] LABS: ALT (GPT) 40 U/L (10-53); AST (GOT) 49 U/L (15-37); GLOMERULAR FILTRATION RATE 22 ML/MIN (>89)
[2017-08-19 11:40] LABS: TOTAL BILIRUBIN ADULT 0.5 MG/DL (0.2-1.0); TOTAL PROTEIN 6.9 GM/DL (6.4-8.2)
[2017-08-19 11:41] LABS: ALKALINE PHOSPHATASE 132 U/L (45-117)
[2017-08-19 12:11] VITALS: O2SAT 100
[2017-08-19 12:15] VITALS: BP 175/71; PULSE 58; RESP 16; O2SAT 100
[2017-08-19 12:18] LABS: SQUAMOUS EPITHELIAL CELL URINE 0-3 /hpf (0-5); WBC, URINE 0-2 /hpf (0-5)
--- NOTE | 2017-08-19 12:40 | RADRPT ---
EXAM DATE: 08/19/2017 12:26 PM EDT AGE/SEX: 86 years / Female INDICATIONS: Vomiting and weak. CLINICAL DATA: This is the patient's initial encounter. Patient reports that signs and symptoms have been present for 3 days and indicates a pain score of 0/10. MEDICAL/SURGICAL HISTORY: Hypertension. Cholecystectomy. section. RADIATION DOSE: 5.26 CTDI (mGy) COMPARISON: No prior [place] exams available for comparison. TECHNIQUE: Multiple contiguous axial images were obtained through the abdomen. Images were obtained using multiple row detector helical technique. Using dose reduction techniques, radiation dose was ke pt as low as reasonably achievable to obtain optimal diagnostic quality images. FINDINGS: Lower Lungs: Bibasilar fibrosis Liver: The liver is nodular without space-occupying lesion. Small to moderate amount of ascites. Ther e is no dilation of the biliary tree. Spleen: Homogeneous density without enlargement. Pancreas: Unremarkable without mass or calcification. Kidneys: Normal in size and shape. No evidence of mass or hydronephrosis. Small left renal low-densi ty. Calcifications left kidney likely vascular. Adrenal Glands: Unremarkable. Aorta: Infrarenal abdominal aortic aneurysm measures 3.3 cm. Extensive atherosclerotic changes.. Bowel/Mesentery: Diverticulosis of the colon without diverticulitis. Abdominal Wall: Fat-containing ventral wall/umbilical hernia. Retroperitoneum: No evidence of adenopathy in the retrocrural, para-aortic, or deep pelvic regions. Bladder: Contours are smooth. Reproductive Organs: No abnormal masses or calcifications seen. Inguinal: Small right inguinal hernia containing fluid. The inguinal region is unremarkable without evidence of adenopathy on the left. Bony Structures: Unremarkable. There is fat within the upper thigh musculature anteriorly. CONCLUSION: 1. Cirrhotic liver. 2. Small to moderate ascites. 3. Infrarenal abdominal aortic aneurysm measures 3.3 cm 4. Diverticulosis of the colon without diverticulitis. 5. Probable left renal cyst. 6. Small right-sided fluid containing inguinal hernia Electronically signed by: Bertram Lira MD 08/19/2017 12:38 PM EDT
[2017-08-19] MEDS ORDERED: ZOFR4TAB3 SL (12:54)
[2017-08-19 12:59] VITALS: BP 179/64; PULSE 57; RESP 16; O2SAT 100
--- NOTE | 2017-08-20 14:13 | EKG ---
Date Performed: 08/19/2017 Time Performed: 11:42:17 PTAGE: 86 years EKG: Sinus rhythm BORDERLINE LEFT AXIS DEVIATION NONSPECIFIC T-WAVE ABNORMALITY BORDERLINE ECG PREVIOUS TRACING : 10/27/2016 07.32 Since the previous tracing, no significant change noted DOCTOR: Dinesh Hernandez Interpretating Date/Time 08/20/2017 14:06:21
== END 2017-08-19 13:32 | disposition home or self-care (01) ==
LOC: PHED 10:06
DX: K52.9 Noninfective gastroenteritis and colitis, unspecified (principal); K74.60 Unspecified cirrhosis of liver; R18.8 Other ascites; K40.90 Unilateral inguinal hernia, without obstruction or gangrene, not specified as recurrent; I71.4 Abdominal aortic aneurysm, without rupture; N28.9 Disorder of kidney and ureter, unspecified; R94.31 Abnormal electrocardiogram [ECG] [EKG]; E78.00 Pure hypercholesterolemia, unspecified; I10 Essential (primary) hypertension
CPT/HCPCS: 74176; 80053; 81001; 83690; 85025; 93005; 96361; 96374; 99285; J2405; J7030

== ENCOUNTER 2018-02-07 19:26 | Inpatient (IN) ==
[2018-02-07] MEDS ORDERED: Sod Chloride 0.9% Inj 1,000 ML IV.SIG ONE (19:49)
--- NOTE | 2018-02-07 20:09 | ED ---
HPI General Chief complaint: Abdominal Pain Stated complaint: upper abd pain x 1 wk Time Seen by Provider: 02/07/18 19:36 Source: patient and family Mode of arrival: ambulatory History of Present Illness HPI narrative: Patient is an 87-year-old female, past medical history significant for hypertension, CKD, fatty liver who presents with multiple complaints. She and her daughter report that she over the last month she has had intermittent abdominal pain with watery, nonbloody stools. She has also had worsening of her chronic confusion with increased difficulty ambulating over this month. She has also had worsening dyspnea with bilateral lower extremity edema also over the last month. No chest pain. No nausea nor vomiting. No fever nor chills. She has not been on antibiotics recently. She does not know what medications she takes at home and does not have a list with her. Onset (ago): month(s) Location: head and abdomen Severity: mild and moderate Quality: aching Pain Consistency: intermittent Relieving factors: none Exacerbating factors: none Treatments prior to arrival: Reports none Related Data Home Medications Medication Instructions Recorded Confirmed Unable to Obtain Home Meds 02/07/18 02/07/18 Allergies Allergy/AdvReac Type Severity Reaction Status Date / Time No Known Allergies Allergy Verified 02/07/18 19:27 Review of Systems ROS: all other systems reviewed are negative [facility] Medical History Medical History Elevated cholesterol (Acute) Fatty liver (Acute) Glaucoma (Acute) Hernia of abdominal cavity (Acute) Hypertension (Acute) Kidney problem (Acute) Surgical History Surgical History History of (Acute) Social History Social History Substance History: No History of Abuse Second Hand Smoke Exposure: No Smoking Status: Never smoker How Often Do You Have a Drink Containing Alcohol: Monthly or less Recent Travel in [facility] within the Last 8 Weeks: No Recent Out of Country Travel within the Last 8 Weeks: No Immunization History Tetanus Immunization: Unsure Exam Narrative Exam Narrative: GENERAL: Well-appearing, elderly, confused female in no acute distress SKIN: Focused skin assessment warm/dry. No rashes. HEAD: Atraumatic. Normocephalic. EYES: Pupils equal and round. No scleral icterus. No injection or drainage. ENT: No nasal bleeding or discharge. Mucous membranes pink and moist. NECK: Trachea midline. No JVD. CARDIOVASCULAR: Regular rate and rhythm. No murmur appreciated. Intact and equal peripheral pulses. RESPIRATORY: No accessory muscle use. Decreased breath sounds in the bases bilaterally. Breath sounds equal bilaterally. GASTROINTESTINAL: Abdomen soft, non-tender, nondistended. Hepatic and splenic margins not palpable. No CVA tenderness. MUSCULOSKELETAL: No obvious deformities. No clubbing. No cyanosis. No edema. NEUROLOGICAL: Awake and alert with slight difficulty with memory. No obvious cranial nerve deficits. Motor grossly within normal limits. Normal speech. PSYCHIATRIC: Appropriate mood and affect; insight and judgment normal. Course Initial Documented Vital Signs Temperature 97.8 F 02/07/18 19:27 Pulse Rate 57 L 02/07/18 19:27 Respiratory Rate 18 02/07/18 19:27 Blood Pressure 213/88 H 02/07/18 19:27 Pulse Oximetry 98 02/07/18 19:27 Last Documented Vital Signs Temperature 97.8 F 02/07/18 19:27 Pulse Rate 55 L 02/07/18 19:49 Respiratory Rate 20 02/07/18 19:42 Blood Pressure 231/77 H 02/07/18 19:42 Pulse Oximetry 99 02/07/18 19:50 Medical Decision Making MDM Narrative Medical decision making narrative: Patient is an 87-year-old female who presents with multiple complaints. She was hypertensive on arrival but did not know her home medications and the pharmacy was closed we tried to call. Review of a note from 2016 revealed that she was on lisinopril 20 mg which was ordered shortly after arrival. She also appeared dry on arrival and thus was not given hydrochlorothiazide but instead fluids. Labs revealed worsening of CKD with elevation of BNP. Chest x-ray showed effusions. CT of her head was unremarkable but CT of the abdomen pelvis showed cirrhosis with ascites that has worsened in addition to multifocal pneumonia. She has not been admitted to any hospital in the last 3 months and came from home, not at facility. Blood cultures were drawn and she was given Rocephin and azithromycin. I discussed the case with Dr. Laurent, hospitalist on-call, whom agreed to admission. Medical Screen Exam Complete: Yes Emergency Medical Condition: Yes Differential Diagnosis Differential Diagnosis: Differential diagnosis includes but is not limited to worsening dementia, worsening of chronic medical problems, diverticulitis, electrolyte abnormality, anemia. Medical Records Medical records reviewed: Yes I reviewed the patient's medical records. Lab Data Lab results reviewed: Yes I reviewed the patient's lab results. Result diagrams: 02/07/18 20:05 02/07/18 20:05 Lab Results 02/07/18 02/07/18 02/07/18 Range/Units 20:05 20:05 20:05 CBC w Diff Auto diff final WBC 10.8 (4.0-11.0) th/mm3 RBC 3.50 L (4.00-5.30) mil/mm3 Hgb 10.2 L (11.6-15.3) gm/dL Hct 31.3 L (35.0-46.0) % MCV 89.2 (80.0-100.0) fL MCH 29.1 (27.0-34.0) pg MCHC 32.7 (32.0-36.0) % RDW 14.3 (11.6-17.2) % Plt Count 220 (150-450) th/mm3 MPV 9.1 (7.0-11.0) fL Neut % (Auto) 65.9 (16.0-70.0) % Lymph % (Auto) 18.7 (9.0-44.0) % [place] % (Auto) 12.7 H (0.0-8.0) % Eos % (Auto) 2.3 (0.0-4.0) % Baso % (Auto) 0.4 (0.0-2.0) % Neut # (Auto) 7.2 (1.8-7.7) th/mm3 Lymph # (Auto) 2.0 (1.0-4.8) th/mm3 [place] # (Auto) 1.4 H (0.0-0.9) th/mm3 Eos # (Auto) 0.2 (0.0-0.4) th/mm3 Baso # (Auto) 0.0 (0.0-0.2) th/mm3 WBC Differential . Differential Comment . Sodium 137 (136-145) meq/L Potassium 3.8 (3.5-5.1) meq/L Chloride 108 H (98-107) meq/L Carbon Dioxide 17.5 L (21.0-32.0) meq/L Anion Gap 12 (5-15) meq/L BUN 45 H (7-18) mg/dL Creatinine 2.80 H (0.50-1.00) mg/dL Estimated GFR 16 L (>89) mL/min Random Glucose 114 H (74-106) mg/dL Calcium 8.1 L (8.5-10.1) mg/dL Magnesium 2.1 (1.5-2.5) mg/dL Total Bilirubin 0.4 (0.2-1.0) mg/dL AST 47 H (15-37) U/L ALT 38 (10-53) U/L Alkaline Phosphatase 247 H (45-117) U/L Troponin I Less than 0.02 L (0.02-0.05) ng/mL B-Natriuretic Peptide 720 H (0-100) pg/mL Total Protein 6.5 (6.4-8.2) g/dL Albumin 2.2 L (3.4-5.0) g/dL Lipase 102 (73-393) U/L Urine Color (Yellw/Straw) Urine Clarity (Clear) Urine pH (5.0-8.5) Ur Specific [place] (1.002-1.035) Urine Protein (Neg-Trace) mg/dL Urine Glucose (UA) (Negative) mg/dL Urine Ketones (Negative) mg/dL Urine Occult Blood (Negative) Urine Nitrate (Negative) Urine Bilirubin (Negative) Urine Urobilinogen (Less than 2) mg/dL Ur Leukocyte Esterase (Negative) Urine RBC (0-3) /hpf Urine WBC (0-5) /hpf Ur Squamous Epith Cells (0-5) /hpf Amorphous Sediment (None) /hpf Urine Bacteria (None) /hpf Micro UA Comment Ur Microscopic Review Urine Culture Comments 02/07/18 Range/Units 21:19 CBC w Diff WBC (4.0-11.0) th/mm3 RBC (4.00-5.30) mil/mm3 Hgb (11.6-15.3) gm/dL Hct (35.0-46.0) % MCV (80.0-100.0) fL MCH (27.0-34.0) pg MCHC (32.0-36.0) % RDW (11.6-17.2) % Plt Count (150-450) th/mm3 MPV (7.0-11.0) fL Neut % (Auto) (16.0-70.0) % Lymph % (Auto) (9.0-44.0) % [place] % (Auto) (0.0-8.0) % Eos % (Auto) (0.0-4.0) % Baso % (Auto) (0.0-2.0) % Neut # (Auto) (1.8-7.7) th/mm3 Lymph # (Auto) (1.0-4.8) th/mm3 [place] # (Auto) (0.0-0.9) th/mm3 Eos # (Auto) (0.0-0.4) th/mm3 Baso # (Auto) (0.0-0.2) th/mm3 WBC Differential Differential Comment Sodium (136-145) meq/L Potassium (3.5-5.1) meq/L Chloride (98-107) meq/L Carbon Dioxide (21.0-32.0) meq/L Anion Gap (5-15) meq/L BUN (7-18) mg/dL Creatinine (0.50-1.00) mg/dL Estimated GFR (>89) mL/min Random Glucose (74-106) mg/dL Calcium (8.5-10.1) mg/dL Magnesium (1.5-2.5) mg/dL Total Bilirubin (0.2-1.0) mg/dL AST (15-37) U/L ALT (10-53) U/L Alkaline Phosphatase (45-117) U/L Troponin I (0.02-0.05) ng/mL B-Natriuretic Peptide (0-100) pg/mL Total Protein (6.4-8.2) g/dL Albumin (3.4-5.0) g/dL Lipase (73-393) U/L Urine Color Yellow (Yellw/Straw) Urine Clarity Clear (Clear) Urine pH 6.0 (5.0-8.5) Ur Specific [place] 1.020 (1.002-1.035) Urine Protein 300 or greater H (Neg-Trace) mg/dL Urine Glucose (UA) Negative (Negative) mg/dL Urine Ketones Negative (Negative) mg/dL Urine Occult Blood Trace (Negative) Urine Nitrate Negative (Negative) Urine Bilirubin Negative (Negative) Urine Urobilinogen 0.2 (Less than 2) mg/dL Ur Leukocyte Esterase Negative (Negative) Urine RBC 0-3 (0-3) /hpf Urine WBC 0-5 (0-5) /hpf Ur Squamous Epith Cells 0-5 (0-5) /hpf Amorphous Sediment Few H (None) /hpf Urine Bacteria Rare H (None) /hpf Micro UA Comment Cath-culture ind Ur Microscopic Review Microscopic reviewed Urine Culture Comments Cath-cult indicated Imaging Data Attestation: I personally reviewed and interpreted this imaging study as follows : Radiologist's impression: Chest X-Ray 02/07/18 19:49 CONCLUSION: Mild bilateral interstitial pulmonary opacity more prominent than on the comparison study suggesting mild pulmonary edema and chronic lung disease. Head CT 02/07/18 19:54 CONCLUSION: Negative CT Head non contrast. . Abdomen/Pelvis CT 02/07/18 20:45 CONCLUSION: 1. Significant increase in amount of ascites compared to prior CT scan July 2017. Fluid extends into and umbilicus hernia and an enlarging right inguinal hernia. 2. Cirrhotic appearing liver. 3. Changed appearance to the lungs with multifocal areas of subsegmental consolidation in both lower lungs and small left pleural effusion. 4. Stable size 3.2 cm infrarenal abdominal aortic aneurysm. ECG Data EKG Prior to Arrival: No Attestation: I personally reviewed and interpreted this ECG as follows: (Sinus bradycardia at a rate of [address] or T wave changes.) Discharge Plan Discharge Disposition Patient Disposition: 30 Still Patient Discharge Condition Condition: Stable Discharge Details Diagnosis: Multifocal pneumonia, Acute kidney injury superimposed on CKD Physicians Team ED Provider: Arianna Duran Attending Provider: Corrina Laurent Discharge Interventions Interventions: Vital Signs Last Done: 02/07/18 19:42 Status ED Status: With Doctor
[2018-02-07 20:25] LABS: Baso % (Auto) 0.4 % (0.0-2.0); Eos # (Auto) 0.2 th/mm3 (0.0-0.4); Eos % (Auto) 2.3 % (0.0-4.0); Hematocrit 31.3 % (35.0-46.0); Hemoglobin 10.2 gm/dL (11.6-15.3); Lymph % (Auto) 18.7 % (9.0-44.0); Mean Corpuscular HGB Conc 32.7 % (32.0-36.0); Mean Corpuscular Hemoglobin 29.1 pg (27.0-34.0); Mean Corpuscular Volume 89.2 fL (80.0-100.0); Mean Platelet Volume 9.1 fL (7.0-11.0); Mono # (Auto) 1.4 th/mm3 (0.0-0.9); Mono % (Auto) 12.7 % (0.0-8.0); Neut # (Auto) 7.2 th/mm3 (1.8-7.7); Neut % (Auto) 65.9 % (16.0-70.0); Platelet Count 220 th/mm3 (150-450); Red Cell Distribution Width 14.3 % (11.6-17.2); White Blood Count 10.8 th/mm3 (4.0-11.0)
[2018-02-07] MEDS ORDERED: Lisinopril 20 MG Tablet PO ONE (20:26)
[2018-02-07 20:35] LABS: Chloride 108 meq/L (98-107); Potassium 3.8 meq/L (3.5-5.1); Sodium 137 meq/L (136-145)
[2018-02-07 20:38] LABS: Calcium 8.1 mg/dL (8.5-10.1)
[2018-02-07 20:39] LABS: Albumin 2.2 g/dL (3.4-5.0); Anion Gap 12 meq/L (5-15); Blood Urea Nitrogen 45 mg/dL (7-18); Carbon Dioxide 17.5 meq/L (21.0-32.0); Glucose,Random 114 mg/dL (74-106); Lipase 102 U/L (73-393); Magnesium 2.1 mg/dL (1.5-2.5)
[2018-02-07 20:42] LABS: Alanine Aminotransferase 38 U/L (10-53); Aspartate Aminotransferase 47 U/L (15-37); Glomerular Filtration Rate 16 mL/min (>89)
[2018-02-07 20:43] LABS: Total Protein 6.5 g/dL (6.4-8.2)
--- NOTE | 2018-02-07 20:43 | XR ---
EXAM DATE: 02/07/2018 8:31 PM EST AGE/SEX: 87 years / Female INDICATIONS: . Difficulty breathing for 1 month CLINICAL DATA: This is the patient's initial encounter. Patient reports that signs and symptoms have been present for 1 month and indicates a pain score of 0/10. MEDICAL/SURGICAL HISTORY: Hypertension. None. COMPARISON: [facility], XR CHEST PA AND LAT, 05/28/2017. . FINDINGS: PA and lateral views of the chest. Mild bilateral diffuse interstitial opacity more prominent than on the comparison study. Mild cardiac silhouette enlargement unchanged. No evidence of focal consolidat ion. No pleural effusion or pneumothorax. CONCLUSION: Mild bilateral interstitial pulmonary opacity more prominent than on the comparison study suggesting mild pulmonary edema and chronic lung disease. Electronically signed by: Erick Brooke MD 02/07/2018 8:42 PM EST
[2018-02-07 20:44] LABS: Alkaline Phosphatase 247 U/L (45-117)
[2018-02-07 21:25] LABS: Bilirubin,Urine Negative (Negative); Clarity,Urine Clear (Clear); Color,Urine Yellow (Yellw/Straw); Glucose,Urine (UA) Negative (Negative); Leukocyte Esterase,Urine Negative (Negative); Nitrite,Urine Negative (Negative); Urobilinogen,Urine 0.2 mg/dL (Less than 2)
--- NOTE | 2018-02-07 21:31 | CT ---
EXAM DATE: 02/07/2018 9:26 PM EST AGE/SEX: 87 years / Female INDICATIONS: Upper abdominal pain for one week. CLINICAL DATA: This is the patient's initial encounter. Patient reports that signs and symptoms have been present for 1 day and indicates a pain score of 5/10. MEDICAL/SURGICAL HISTORY: . Elevated cholesterol. Fatty liver. Glaucoma. Hernia of abdominal cavity . Hypertension. Kidney problem. section. RADIATION DOSE: 60.13 CTDI (mGy) COMPARISON: No prior exams available for comparison. TECHNIQUE: CT of the head without contrast. Using automated exposure control and adjustment of the mA and/or kV according to patient size, radiation dose was kept as low as reasonably achievable to ob tain optimal diagnostic quality images. DICOM format image data is available electronically for revi ew and comparison. FINDINGS: Cerebrum: The ventricles are normal for age. No evidence of midline shift, mass lesion, hemorrhage or acute infarction. No extraaxial fluid collections are seen. Prominent symmetric periventricular w jackie matter hypodensity indicating chronic small vessel ischemic change. Posterior Fossa: The cerebellum and brainstem are intact. The 4th ventricle is midline. The cerebe llopontine angle is unremarkable. Extracranial: The visualized portion of the orbits is intact. Skull: The calvaria is intact. No evidence of skull fracture. CONCLUSION: Negative CT Head non contrast. . Electronically signed by: Erick Brooke MD 02/07/2018 9:29 PM EST
[2018-02-07 21:32] LABS: RBC,Urine 0-3 /hpf (0-3); Squamous Epithelial Cell,Urine 0-5 /hpf (0-5); WBC,Urine 0-5 /hpf (0-5)
[2018-02-07 21:33] LABS: Amorphous Sediment,Urine Few /hpf; Bacteria,Urine Rare /hpf
--- NOTE | 2018-02-07 21:35 | CT ---
EXAM DATE: 02/07/2018 9:26 PM EST AGE/SEX: 87 years / Female INDICATIONS: Upper abdominal pain for one week. CLINICAL DATA: This is the patient's initial encounter. Patient reports that signs and symptoms have been present for 1 day and indicates a pain score of 5/10. MEDICAL/SURGICAL HISTORY: . Elevated cholesterol. Fatty liver. Glaucoma. Hernia of abdominal ca vity. Hypertension. Kidney problem. section. RADIATION DOSE: 5.32 CTDI (mGy) COMPARISON: [facility], CT ABDOMEN & PELVIS W/O CONTRAST, 08/19/2017. . TECHNIQUE: Multiple contiguous axial images were obtained through the abdomen. Images were obtained using multiple row detector helical technique. Using automated exposure control and adjustment of the mA and/or kV according to patient size, radiation dose was kept as low as reasonably achievable to o btain optimal diagnostic quality images. DICOM format image data is available electronically for rev iew and comparison. FINDINGS: Lower Lungs: Patchy areas of partially consolidated infiltrate are a new finding compared to prior ex amination as is a small left pleural effusion measuring 1.6 cm. Liver: Cirrhotic appearing liver with nodular surface contour. No focal lesions for noncontrast techn ique. There is a prominent amount of ascites about the upper abdomen tracking down into the pelvis. T he amount of ascites is increased significantly since July 2017. Spleen: Homogeneous density without enlargement. Pancreas: Unremarkable without mass or calcification. Kidneys: Normal in size and shape. No evidence of mass or hydronephrosis. Adrenal Glands: Unremarkable. Aorta: Stable 3.2 cm infrarenal abdominal aortic aneurysm. Bowel/Mesentery: No dilated loops of small or large bowel. Multiple small diverticula sigmoid colon, stable from prior. Abdominal Wall: Moderate size umbilical hernia, moderately larger than on prior examination. Separat ion between the rectus muscles measures 2.2 cm. There is some fluid in the ventral hernia. Retroperitoneum: No evidence of adenopathy in the retrocrural, para-aortic, or deep pelvic regions. Bladder: Contours are smooth. Reproductive Organs: No abnormal masses or calcifications seen. Inguinal: Ascites extends into the right inguinal hernia; inguinal hernia has increased in size, now measuring 4 cm (previously measured 1.9 cm) Bony Structures: Unremarkable. CONCLUSION: 1. Significant increase in amount of ascites compared to prior CT scan July 2017. Fluid extends into and umbilicus hernia and an enlarging right inguinal hernia. 2. Cirrhotic appearing liver. 3. Changed appearance to the lungs with multifocal areas of subsegmental consolidation in both lower lungs and small left pleural effusion. 4. Stable size 3.2 cm infrarenal abdominal aortic aneurysm. Electronically signed by: Festus Nuñez MD 02/07/2018 9:34 PM EST
[2018-02-07] MEDS ORDERED: Azithromycin Inj 500 MG in Sodium Chlor 0.9% Inj 250 ML IV.SIG ONE (21:44)
[2018-02-07] MEDS ORDERED: Acetaminophen 325 MG Tablet PO PRN (21:52)
[2018-02-07] MEDS ORDERED: Bisacodyl 10 MG Supp RECTAL PRN (21:52)
[2018-02-07] MEDS ORDERED: Sodium Chloride 0.9% 2 ML Flush PRN IV.FLUSH (22:05)
[2018-02-07] MEDS ORDERED: hydrALAZINE HCl Inj 20 MG/ML Vial IV.PUSH ONE (22:18)
[2018-02-07] MEDS ORDERED: Metoprolol Inj 5 MG/5 ML Vial IV.PUSH ONE (22:19)
[2018-02-08 07:39] LABS: Baso % (Auto) 0.2 % (0.0-2.0); Eos # (Auto) 0.2 th/mm3 (0.0-0.4); Eos % (Auto) 2.5 % (0.0-4.0); Hematocrit 29.8 % (35.0-46.0); Hemoglobin 9.8 gm/dL (11.6-15.3); Lymph # (Auto) 1.6 th/mm3 (1.0-4.8); Lymph % (Auto) 16.9 % (9.0-44.0); Mean Corpuscular HGB Conc 32.9 % (32.0-36.0); Mean Corpuscular Hemoglobin 29.3 pg (27.0-34.0); Mean Corpuscular Volume 89.2 fL (80.0-100.0); Mean Platelet Volume 8.9 fL (7.0-11.0); Mono % (Auto) 9.8 % (0.0-8.0); Neut # (Auto) 6.9 th/mm3 (1.8-7.7); Neut % (Auto) 70.6 % (16.0-70.0); Platelet Count 233 th/mm3 (150-450); Red Blood Count 3.34 mil/mm3 (4.00-5.30); Red Cell Distribution Width 14.6 % (11.6-17.2); White Blood Count 9.7 th/mm3 (4.0-11.0)
[2018-02-08 07:45] LABS: Chloride 113 meq/L (98-107); Potassium 3.9 meq/L (3.5-5.1); Sodium 141 meq/L (136-145)
[2018-02-08 08:10] LABS: Alanine Aminotransferase 32 U/L (10-53); Alkaline Phosphatase 194 U/L (45-117); Anion Gap 11 meq/L (5-15); Aspartate Aminotransferase 40 U/L (15-37); Blood Urea Nitrogen 42 mg/dL (7-18); Calcium 7.5 mg/dL (8.5-10.1); Carbon Dioxide 16.8 meq/L (21.0-32.0); Glomerular Filtration Rate 17 mL/min (>89); Glucose,Random 91 mg/dL (74-106); Total Protein 5.6 g/dL (6.4-8.2)
[2018-02-08] MEDS: Sodium Chloride 0.9% 2 ML Flush BID IV.FLUSH SCH ×2 (08:42→20:27)
[2018-02-08] MEDS: Senna/Docusate Sodium 8.6/50 MG Tablet PO SCH ×2 (08:42→20:26)
[2018-02-08] MEDS: Heparin - SQ 10,000 UNITS/ML Vial SQ SCH ×2 (08:54→20:26)
--- NOTE | 2018-02-08 10:14 | P.HP ---
History of Present Illness Primary Care Physician: Levy Wheeler Chief Complaint: Generalized weakness, diarrhea and shortness of breath History of Present Illness: This is a pleasant 87-year-old female patient with a known medical history of hypertension, CKD, fatty liver who presented to the ED with multiple complaints including generalized weakness, fatigue, diarrhea, shortness of breath especially with exertion and worsening bilateral lower extremity edema. Patient is seen at the bedside and a relatively poor historian. No family at bedside, most of the history obtained in the medical record. Per patient, she does state that she has had diarrhea x 2 weeks along with diminished appetite. At her baseline, she lives at home alone and able to perform ADLs per self. Patient denies any recent fever, chills, headache, chest pain, nausea, vomiting or dysuria. Denies any recent antibiotic use. On presentation it was found that she has bilateral PNA, elevated BNP and suspected UTI. - Diagnosis (1) Diarrhea (2) Multifocal pneumonia (3) Acute kidney injury superimposed on CKD Inpatient Certification: I certify that the inpatient services were ordered in accordance with Medicare regulations governing the order. This includes certification that hospital inpatient services are reasonable and necessary and in the case of services not specified as inpatient-only under 42 CFR 419.22(n), that they are appropriately provided as inpatient services in accordance to with the 2-midnight benchmark under 43 CFR 412.3(e) Estimated Total Length of Stay (Days): 2 Plans for Post Hospital Care: Not yet determined Review of Systems All other systems reviewed negative except as stated in HPI PMFSH - History History Provided By: Patient - Medical History Medical History: Medical History (Last Reviewed 02/08/18 @ 10:10 by Charisma Luz) Elevated cholesterol Fatty liver Glaucoma Hernia of abdominal cavity Hypertension Kidney problem - Surgical History Surgical History: Surgical History (Last Reviewed 02/08/18 @ 10:10 by Charisma Luz) History of - Family History Family History: Family History (Last Updated 02/08/18 @ 10:10 by Charisma Luz) Other Family history non-contributory - Social History I have reviewed the patient's Social History: Yes - Tobacco History Second Hand Smoke Exposure: Yes Tobacco Use In Past 30 Days: Yes Smoking Status: Never smoker - Alcohol History How Often Do You Have a Drink Containing Alcohol: Monthly or less - Substance Use History Substance History: No History of Abuse - Travel History Recent Travel in the [place] Within the Last 8 Weeks: No Recent Travel Out of the Country Within the Last 8 Weeks: No - Immunization History Tetanus Immunization: Unsure Hx Influenza Vaccine This Season: Yes Medications and Allergies Active Medications: Active Medications Acetaminophen (Tylenol) 650 mg PO Q4H PRN PRN Reason: Temp > 100.4 Al Hydroxide/Mg Hydroxide (Milk Of Magnesia Liq) 30 ml PO Q12H PRN PRN Reason: Mild Constipation Albuterol (Duoneb Neb (Prn)) 1 ampul NEB Q4HR NEB PRN PRN Reason: SOB/WHEEZING Last Admin: 02/08/18 08:09 Dose: 1 ampul Bisacodyl (Dulcolax Supp) 10 mg RECTAL DAILY PRN PRN Reason: SEVERE CONSITIPATION Furosemide (Lasix Inj) 40 mg IV.PUSH BID@0900,1800 [facility] Last Admin: 02/08/18 08:42 Dose: 40 mg Heparin Sodium (Porcine) (Heparin Inj) 5,000 units SQ Q12H [facility] Last Admin: 02/08/18 08:54 Dose: 5,000 units Azithromycin 500 mg/ Sodium (Chloride) 250 mls @ 250 mls/hr IV.SIG Q24H KATHERINE Ceftriaxone Sodium 1,000 mg/ (Sodium Chloride) 100 mls @ 200 mls/hr IV.SIG Q24H KATHERINE Lactulose (Lactulose Liq) 30 ml PO DAILY PRN PRN Reason: SEVERE CONSITIPATION Ondansetron HCl (Zofran Inj) 4 mg IV.PUSH Q6H PRN PRN Reason: NAUSEA OR VOMITING Senna/Docusate Sodium (Sarah-Colace) 1 tab PO BID [facility] Last Admin: 02/08/18 08:42 Dose: Not Given Sennosides (Senokot) 17.2 mg PO Q12H PRN PRN Reason: Moderate Constipation Sodium Chloride (Ns Flush) 2 ml IV.FLUSH BID [facility] Last Admin: 02/08/18 08:42 Dose: 2 ml Sodium Chloride (Ns Flush) 2 ml IV.FLUSH PRN PRN PRN Reason: FLUSH AFTER USING IV ACCESS Allergies Allergy/AdvReac Type Severity Reaction Status Date / Time No Known Allergies Allergy Verified 02/07/18 19:27 Home Medications Medication Instructions Recorded Confirmed Type Unable to Obtain Home Meds 02/07/18 02/07/18 History Exam Vital signs: Vital Signs 02/07/18 19:27 02/07/18 19:42 02/07/18 19:49 Temperature 97.8 F Pulse Rate 57 L 55 L 55 L Respiratory Rate 18 20 Blood Pressure 213/88 H 231/77 H Pulse Oximetry 98 99 02/07/18 19:50 02/07/18 20:00 02/07/18 21:00 Temperature Pulse Rate 55 L 51 L Respiratory Rate 18 20 Blood Pressure 231/77 H 218/77 H Pulse Oximetry 99 99 99 02/07/18 22:00 02/07/18 22:51 02/07/18 22:58 Temperature Pulse Rate 66 66 61 Respiratory Rate 20 18 20 Blood Pressure 220/89 H 189/74 H 170/64 H Pulse Oximetry 99 02/08/18 00:00 02/08/18 00:04 02/08/18 04:00 Temperature 97.1 F L 99.2 F Pulse Rate 64 66 65 Respiratory Rate 20 20 Blood Pressure 151/70 H 170/70 H Pulse Oximetry 98 97 02/08/18 08:00 02/08/18 08:12 Temperature 97.0 F L Pulse Rate 61 54 L Respiratory Rate 17 20 Blood Pressure 195/79 H Pulse Oximetry 98 Intake & Output 02/07/18 02/08/18 02/08/18 18:59 06:59 18:59 Intake Total 1590 / 1590 Output Total 550 / 550 Balance 1040 / 1040 Weight 53 kg Intake: IV 1350 / 1350 Azithromycin Inj 500 MG In NS 250 / 250 Inj 250 ML @ 250 mls/hr IV.SIG ONCE ONE Rx#:[id number] NS Inj 1,000 ML @ Wide Open IV. 1000 / 1000 SIG BOLUS ONE Rx#:[id number] Rocephin Inj 1,000 MG In NS Inj 100 / 100 100 ML @ 200 mls/hr IV.SIG ONCE ONE Rx#:[id number] Oral 240 / 240 Output: Urine 550 / 550 Other: # Voids 2 # Urine Diapers 2 # Bowel Movements 1 Weight On Admission 53 kg Narrative: GENERAL: Well-developed, thin appear elderly female patient in NAD. SKIN: Warm and dry. No rash. HEAD: Normocephalic. Atraumatic. EYES: Pupils equal and round. No scleral icterus. No injection or drainage. ENT: No nasal bleeding or discharge. Mucous membranes pink and moist. NECK: Supple. Trachea midline. CARDIOVASCULAR: Regular rate and rhythm. S1, S2 noted. RESPIRATORY: No accessory muscle use. Crackles at the base of her bilateral posterior lobes. Breath sounds equal bilaterally. GASTROINTESTINAL: Abdomen soft, mildly distended, umbilical hernia which is reducible. Right inguinal hernia present as well which is also reproducible and nontender. Normoactive bowel sounds x4. MUSCULOSKELETAL: No obvious deformities. Extremities without clubbing, cyanosis , or edema. NEUROLOGICAL: Awake and alert, somewhat confused. No obvious cranial nerve deficits. Motor grossly within normal limits. 5/5 muscle strength in bilateral upper and lower extremities. Normal speech. Results - Labs CBC & Chem 7: 02/08/18 07:25 02/08/18 07:25 Labs: Laboratory Results - last 24 hr 02/07/18 02/07/18 02/07/18 20:05 20:05 20:05 CBC w Diff Auto diff final WBC 10.8 RBC 3.50 L Hgb 10.2 L Hct 31.3 L MCV 89.2 MCH 29.1 MCHC 32.7 RDW 14.3 Plt Count 220 MPV 9.1 Neut % (Auto) 65.9 Lymph % (Auto) 18.7 [place] % (Auto) 12.7 H Eos % (Auto) 2.3 Baso % (Auto) 0.4 Neut # (Auto) 7.2 Lymph # (Auto) 2.0 [place] # (Auto) 1.4 H Eos # (Auto) 0.2 Baso # (Auto) 0.0 WBC Differential . Differential Comment . Sodium 137 Potassium 3.8 Chloride 108 H Carbon Dioxide 17.5 L Anion Gap 12 BUN 45 H Creatinine 2.80 H Estimated GFR 16 L Random Glucose 114 H Calcium 8.1 L Magnesium 2.1 Total Bilirubin 0.4 AST 47 H ALT 38 Alkaline Phosphatase 247 H Troponin I Less than 0.02 L B-Natriuretic Peptide 720 H Total Protein 6.5 Albumin 2.2 L Lipase 102 Urine Color Urine Clarity Urine pH Ur Specific [place] Urine Protein Urine Glucose (UA) Urine Ketones Urine Occult Blood Urine Nitrate Urine Bilirubin Urine Urobilinogen Ur Leukocyte Esterase Urine RBC Urine WBC Ur Squamous Epith Cells Amorphous Sediment Urine Bacteria Micro UA Comment Ur Microscopic Review Urine Culture Comments 02/07/18 02/08/18 02/08/18 21:19 07:25 07:25 CBC w Diff Auto diff final WBC 9.7 RBC 3.34 L Hgb 9.8 L Hct 29.8 L MCV 89.2 MCH 29.3 MCHC 32.9 RDW 14.6 Plt Count 233 MPV 8.9 Neut % (Auto) 70.6 H Lymph % (Auto) 16.9 [place] % (Auto) 9.8 H Eos % (Auto) 2.5 Baso % (Auto) 0.2 Neut # (Auto) 6.9 Lymph # (Auto) 1.6 [place] # (Auto) 1.0 H Eos # (Auto) 0.2 Baso # (Auto) 0.0 WBC Differential . Differential Comment . Sodium 141 Potassium 3.9 Chloride 113 H Carbon Dioxide 16.8 L Anion Gap 11 BUN 42 H Creatinine 2.60 H Estimated GFR 17 L Random Glucose 91 Calcium 7.5 L Magnesium Total Bilirubin 0.3 AST 40 H ALT 32 Alkaline Phosphatase 194 H Troponin I B-Natriuretic Peptide Total Protein 5.6 L D Albumin 2.0 L Lipase Urine Color Yellow Urine Clarity Clear Urine pH 6.0 Ur Specific [place] 1.020 Urine Protein 300 or greater H Urine Glucose (UA) Negative Urine Ketones Negative Urine Occult Blood Trace Urine Nitrate Negative Urine Bilirubin Negative Urine Urobilinogen 0.2 Ur Leukocyte Esterase Negative Urine RBC 0-3 Urine WBC 0-5 Ur Squamous Epith Cells 0-5 Amorphous Sediment Few H Urine Bacteria Rare H Micro UA Comment Cath-culture ind Ur Microscopic Review Microscopic reviewed Urine Culture Comments Cath-cult indicated - Imaging Impressions Chest X-Ray 02/07/18 19:49 CONCLUSION: Mild bilateral interstitial pulmonary opacity more prominent than on the comparison study suggesting mild pulmonary edema and chronic lung disease. Head CT 02/07/18 19:54 CONCLUSION: Negative CT Head non contrast. . Abdomen/Pelvis CT 02/07/18 20:45 CONCLUSION: 1. Significant increase in amount of ascites compared to prior CT scan July 2017. Fluid extends into and umbilicus hernia and an enlarging right inguinal hernia. 2. Cirrhotic appearing liver. 3. Changed appearance to the lungs with multifocal areas of subsegmental consolidation in both lower lungs and small left pleural effusion. 4. Stable size 3.2 cm infrarenal abdominal aortic aneurysm. Caprini VTE Risk Assessment Caprini VTE Risk Assessment: Moderate/High Risk (score >= 2) Caprini Risk Assessment Model: Point Value = 1 Point Value = 2 Point Value = 3 Point Value = 5 Age 41-60 Minor surgery BMI > 25 kg/m2 Swollen legs Varicose veins or History of unexplained or recurrent spontaneous Oral contraceptives or hormone replacement Sepsis (< 1 month) Serious lung disease, including pneumonia (< 1 month) Abnormal pulmonary function Acute myocardial infarction Congestive heart failure (< 1 month) History of inflammatory bowel disease Medical patient at bed rest Age 61-74 Arthroscopic surgery Major open surgery (> 45 min) Laparoscopic surgery (> 45 min) Malignancy Confined to bed (> 72 hours) Immobilizing plaster cast Central venous access Age >= 75 History of VTE Family history of VTE Factor V Leiden Prothrombin [id number] Lupus anticoagulant Anticardiolipin antibodies Elevated serum homocysteine Heparin-induced thrombocytopenia Other congenital or acquired thrombophilia Stroke (< 1 month) Elective arthroplasty Hip, pelvis, or leg fracture Acute spinal cord injury (< 1 month) Prophylaxis Regimen: Total Risk Factor Score Risk Level Prophylaxis Regimen 0-1 Low Early ambulation 2 Moderate Order ONE of the following: *Sequential Compression Device (SCD) *Heparin 5000 units SQ BID 3-4 Higher Order ONE of the following medications: *Heparin 5000 units SQ TID *Enoxaparin/Lovenox 40 mg SQ daily (WT < 150 kg, CrCl > 30 mL/min) *Enoxaparin/Lovenox 30 mg SQ daily (WT < 150 kg, CrCl > 10-29 mL/min) *Enoxaparin/Lovenox 30 mg SQ BID (WT < 150 kg, CrCl > 30 mL/min) AND/OR *Sequential Compression Device (SCD) 5 or more Highest Order ONE of the following medications: *Heparin 5000 units SQ TID (Preferred with Epidurals) *Enoxaparin/Lovenox 40 mg SQ daily (WT < 150 kg, CrCl > 30 mL/min) *Enoxaparin/Lovenox 30 mg SQ daily (WT < 150 kg, CrCl > 10-29 mL/min) *Enoxaparin/Lovenox 30 mg SQ BID (WT < 150 kg, CrCl > 30 mL/min) AND *Sequential Compression Device (SCD) Assessment and Plan - Assessment (1) Diarrhea Code(s): R19.7 - Diarrhea, unspecified Status: Acute (2) Multifocal pneumonia Code(s): J18.9 - Pneumonia, unspecified organism Status: Acute (3) Acute kidney injury superimposed on CKD Code(s): N17.9 - Acute kidney failure, unspecified; N18.9 - Chronic kidney disease, unspecified Status: Acute - Plan This is an 87-year-old female patient with a history of CKD, HTN and fatty liver who presented to the ED with: Shortness of breath on exertion suspect secondary to bilateral community- acquired pneumonia versus fluid overload Elevated BNP, likely secondary to chronic cirrhosis -Chest x-ray reviewed suggesting some pulmonary edema. Abdominal/pelvis CT also reviewed showing possible bilateral pneumonia. -Patient was given 1 LNS bolus initially in ED for initial suspected dehydration. BNP was found to be elevated, patient was then given Lasix 40 mg IV BID. Changed to PO. -Will monitor intake and output closely. -Patient does not have leukocytosis, hypoxia, fever or cough. Will continue to monitor clinically. -Blood cultures negative to date. Follow. -Initially started on Ceftriaxone and Azithromycin in ED. Continue for now. Generalized weakness Fatigue -Patient complaint of feeling fatigued and weak x 1 week. -PT consulted for evaluation, input and recommendations pending. Abnormal UA rule out UTI Chronic kidney disease stage stage IV -UA showing presence of bacteria, culture is pending. -Unlikely UTI, patient denies any recent symptoms. -Creatinine 2.6/GFR 17 on presentation. After review of records, this seems to be baseline for patient. -Monitor BMP. -Avoid nephrotoxins. Diarrhea History of cirrhosis -Patient admits to a 2-week history of diarrhea. -Abdominal/pelvis images reviewed showing cirrhosis with ascites. Umbilical and right inguinal hernia present and reproducible/nontender on exam. Abdomen soft. -Continue to monitor/continue diuresis. -Check stool studies including c diff. Hypertension, chronic -Uncontrolled. -Will start on hydralazine. Unable to give ARBS/BERRY secondary to CKD. Thiazides are not appropriate secondary to receiving Lasix. -Continue to monitor trends. DVT prophylaxis: SCDs. Heparin.
[2018-02-08] MEDS: hydrALAZINE 50 MG Tablet PO SCH ×2 (11:34→17:38)
--- NOTE | 2018-02-08 14:12 | ECG ---
Date Performed: 02/07/2018 Time Performed: 20:01:41 PTAGE: 87 years EKG: SINUS BRADYCARDIA BORDERLINE LEFT AXIS DEVIATION NONSPECIFIC T-WAVE ABNORMALITY BORDERLINE ECG PREVIOUS TRACING : 08/19/2017 11.42 Since the previous tracing, no significant change noted DOCTOR: Jeanmarie Ng Interpretating Date/Time 02/08/2018 14:11:55
[2018-02-08] MEDS: Furosemide 40 MG Tablet PO SCH (17:38)
[2018-02-08] MEDS: Timolol 0.5% Drops 5 ML Bottle EACH EYE SCH (20:30)
[2018-02-08] MEDS ORDERED: Doxazosin 4 MG Tablet PO SCH (21:00)
[2018-02-08] MEDS: Azithromycin Inj 500 MG in Sodium Chlor 0.9% Inj 250 ML IV.SIG SCH (21:18)
[2018-02-09 07:08] LABS: Baso % (Auto) 0.3 % (0.0-2.0); Eos # (Auto) 0.2 th/mm3 (0.0-0.4); Hematocrit 30.1 % (35.0-46.0); Hemoglobin 9.8 gm/dL (11.6-15.3); Lymph # (Auto) 1.7 th/mm3 (1.0-4.8); Lymph % (Auto) 21.6 % (9.0-44.0); Mean Corpuscular HGB Conc 32.5 % (32.0-36.0); Mean Corpuscular Hemoglobin 29.2 pg (27.0-34.0); Mean Corpuscular Volume 89.9 fL (80.0-100.0); Mean Platelet Volume 9.1 fL (7.0-11.0); Mono # (Auto) 0.8 th/mm3 (0.0-0.9); Mono % (Auto) 10.3 % (0.0-8.0); Neut # (Auto) 5.3 th/mm3 (1.8-7.7); Neut % (Auto) 64.8 % (16.0-70.0); Platelet Count 245 th/mm3 (150-450); Red Blood Count 3.34 mil/mm3 (4.00-5.30); Red Cell Distribution Width 14.9 % (11.6-17.2)
[2018-02-09] MEDS: Levothyroxine 75 MCG Tablet PO SCH (07:11)
[2018-02-09 07:15] LABS: Potassium 3.7 meq/L (3.5-5.1)
[2018-02-09 07:36] LABS: Calcium 7.5 mg/dL (8.5-10.1); Carbon Dioxide 18.2 meq/L (21.0-32.0)
[2018-02-09 07:43] LABS: Platelet Estimate Normal (Normal); Platelet Morphology Normal (Normal); RBC Morphology Normal (Normal)
--- NOTE | 2018-02-09 09:06 | ECHRPT ---
Indication: CONCLUSIONS The left ventricular systolic function is normal with an estimated ejection fraction in the range of 60-65% Normal left ventricular size. Wall thickness is normal. No regional wall motion abnormalities are present. Mild thickening of the mitral valve leaflets. Trace mitral valve regurgitation. Mitral annular calcification is present. Aortic valve sclerosis is present. Mild aortic valve regurgitation. Mild thickening of the tricuspid valve leaflets. There is mild tricuspid valve regurgitation. The estimated pulmonary arterial pressure is 40.9 mmHg. 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 BP: / HR: Rhythm: MEASUREMENTS (Male / Female) Normal Values Technical Quality: 2D ECHO LV Diastolic Diameter PLAX 4.2 cm 4.2 - 5.9 / 3.9 - 5.3 cm LV Systolic Diameter PLAX 3.0 cm IVS Diastolic Thickness 1.2 cm 0.6 - 1.0 / 0.6 - 0.9 cm LVPW Diastolic Thickness 1.2 cm 0.6 - 1.0 / 0.6 - 0.9 cm LV Relative Wall Thickness 0.6 LVOT Diameter 1.4 cm LA Systolic Diameter LX 3.5 cm 3.0 - 4.0 / 2.7 - 3.8 cm M-MODE Aortic Root Diameter MM 2.1 cm LA Systolic Diameter MM 3.9 cm LA Ao Ratio MM 1.9 AV Cusp Separation MM 1.2 cm DOPPLER AV Peak Velocity 234.0 cm/s AV Peak Gradient 21.9 mmHg AV Mean Gradient 9.0 mmHg AV Velocity Time Integral 49.0 cm AI Peak Velocity 334.5 cm/s AI Peak Gradient 44.8 mmHg AI Pressure Half Time 567.5 ms LVOT Peak Velocity 116.0 cm/s LVOT Peak Gradient 5.4 mmHg LVOT Velocity Time Integral 30.4 cm AV Area Cont Eq vti 1.0 cm AV Area Cont Eq pk 0.8 cm MV Area PHT 3.1 cm Mitral E Point Velocity 96.3 cm/s Mitral A Point Velocity 68.1 cm/s Mitral E to A Ratio 1.4 LV E' Lateral Velocity 9.0 cm/s Mitral E to LV E' Lateral Ratio 10.7 LV E' Septal Velocity 6.8 cm/s Mitral E to LV E' Septal Ratio 14.1 TR Peak Velocity 278.0 cm/s TR Peak Gradient 30.9 mmHg Right Atrial Pressure 10.0 mmHg Pulmonary Artery Systolic Pressu 40.9 mmHg Right Ventricular Systolic Press 40.9 mmHg PV Peak Velocity 128.0 cm/s PV Peak Gradient 6.6 mmHg FINDINGS LEFT VENTRICLE The left ventricular systolic function is normal with an estimated ejection fraction in the range of 60-65%. Normal left ventricular size. Wall thickness is normal. No regional wall motion abnormalities are present. RIGHT VENTRICLE Normal right ventricular size and systolic function. LEFT ATRIUM The left atrial size is normal. RIGHT ATRIUM The right atrial size is normal. ATRIAL SEPTUM Normal atrial septal thickness without atrial level shunting by limited color doppler interrogation. AORTA The aortic root and proximal ascending aorta are normal in size on limited imaging. MITRAL VALVE Mild thickening of the mitral valve leaflets. Trace mitral valve regurgitation. Mitral annular calcification is present. AORTIC VALVE Trileaflet aortic valve. Aortic valve sclerosis is present. Mild aortic valve regurgitation. TRICUSPID VALVE Mild thickening of the tricuspid valve leaflets. There is mild tricuspid valve regurgitation. The estimated pulmonary arterial pressure is 40.9 mmHg. 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 PULMONARY VALVE Trivial pulmonary valve regurgitation. VESSELS The inferior vena cava is normal in size. PERICARDIUM No pericardial effusion. Colby Leonardo MD (Electronically Signed) Final Date:09 February 2018 09:05
[2018-02-09] MEDS: Timolol 0.5% Drops 5 ML Bottle EACH EYE SCH ×2 (09:33→22:51)
[2018-02-09] MEDS: hydrALAZINE 50 MG Tablet PO SCH ×3 (09:33→18:22)
[2018-02-09] MEDS: Amiodarone 200 MG Tablet PO SCH (09:33)
[2018-02-09] MEDS: Pantoprazole Sodium 20 MG DR Tablet PO SCH (09:33)
[2018-02-09] MEDS: Sertraline 50 MG Tablet PO SCH (09:34)
[2018-02-09] MEDS: Senna/Docusate Sodium 8.6/50 MG Tablet PO SCH ×2 (09:34→22:50)
[2018-02-09] MEDS: Calcitriol 0.25 MCG Capsule PO SCH (09:34)
[2018-02-09] MEDS: Sodium Chloride 0.9% 2 ML Flush BID IV.FLUSH SCH ×2 (09:34→22:37)
[2018-02-09] MEDS: Heparin - SQ 10,000 UNITS/ML Vial SQ SCH ×2 (09:35→22:50)
[2018-02-09] MEDS: Furosemide 40 MG Tablet PO SCH ×2 (09:39→18:19)
--- NOTE | 2018-02-09 10:14 | P.PNIM ---
Subjective Interval history: Follow up shortness of breath, diarrhea, weakness. Patient seen and examined, lying in bed awake. Does state she feels much improved. RN states she had some dizziness overnight. Orthostatic BPs positive. Order for TEDs. Encouraged to transition slowly. ECHO done showing elevated PAP. Denies any shortness of breath, comfortable on RA. CM assisting with possible Hernandez evaluation for rehab. Physical Exam Vital signs: Vital Signs 02/08/18 11:43 02/08/18 12:00 02/08/18 16:00 Temperature 97.4 F L 97.0 F L Pulse Rate 60 64 70 Respiratory Rate 20 14 16 Blood Pressure 153/65 H 182/79 H Pulse Oximetry 97 96 02/08/18 16:01 02/08/18 20:00 02/09/18 04:00 Temperature 96.6 F L 96.7 F L Pulse Rate 64 70 69 Respiratory Rate 18 20 20 Blood Pressure 176/85 H 169/79 H Pulse Oximetry 96 97 02/09/18 08:00 Temperature 96.4 F L Pulse Rate 63 Respiratory Rate 20 Blood Pressure 132/64 Pulse Oximetry Intake & Output 02/08/18 02/09/18 02/09/18 18:59 06:59 18:59 Intake Total 735 / 735 590 / 590 Output Total 700 / 700 Balance 35 / 35 590 / 590 Weight 53 kg Intake: IV 350 / 350 Azithromycin Inj 500 MG In NS 250 / 250 Inj 250 ML @ 250 mls/hr IV.SIG Q24H KATHERINE Rx#:[id number] Rocephin Inj 1,000 MG In NS Inj 100 / 100 100 ML @ 200 mls/hr IV.SIG Q24H KATHERINE Rx#:[id number] Oral 735 / 735 240 / 240 Output: Urine 700 / 700 Other: # Voids 225 4 # Bowel Movements 1 1 Narrative: GENERAL: Well-developed, thin appear elderly female patient in NAD. SKIN: Warm and dry. No rash. HEAD: Normocephalic. Atraumatic. EYES: Pupils equal and round. No scleral icterus. No injection or drainage. ENT: No nasal bleeding or discharge. Mucous membranes pink and moist. NECK: Supple. Trachea midline. CARDIOVASCULAR: Regular rate and rhythm. S1, S2 noted. RESPIRATORY: No accessory muscle use.Lung sounds clear today. Breath sounds equal bilaterally. GASTROINTESTINAL: Abdomen soft, mildly distended, umbilical hernia which is reducible. Right inguinal hernia present as well which is also reproducible and nontender. Normoactive bowel sounds x4. MUSCULOSKELETAL: No obvious deformities. Extremities without clubbing, cyanosis , or edema. NEUROLOGICAL: Awake and alert, somewhat confused. No obvious cranial nerve deficits. Motor grossly within normal limits. 5/5 muscle strength in bilateral upper and lower extremities. Normal speech. Results - Labs CBC & Chem 7: 02/09/18 06:40 02/09/18 06:40 Laboratory Results - last 24 hr 02/08/18 02/08/18 02/09/18 07:25 07:25 06:40 CBC w Diff Slide review pending WBC 8.0 RBC 3.34 L Hgb 9.8 L Hct 30.1 L MCV 89.9 MCH 29.2 MCHC 32.5 RDW 14.9 Plt Count 245 MPV 9.1 Neut % (Auto) 64.8 Lymph % (Auto) 21.6 [place] % (Auto) 10.3 H Eos % (Auto) 3.0 Baso % (Auto) 0.3 Neut # (Auto) 5.3 Lymph # (Auto) 1.7 [place] # (Auto) 0.8 Eos # (Auto) 0.2 Baso # (Auto) 0.0 WBC Differential . Diff Scan Auto diff confirmed Differential Comment . Platelet Estimate Normal Platelet Morphology Normal RBC Morphology Normal Sodium Potassium Chloride Carbon Dioxide Anion Gap BUN Creatinine Estimated GFR Random Glucose Calcium TSH 59.500 H Free T4 0.58 L 02/09/18 06:40 CBC w Diff WBC RBC Hgb Hct MCV MCH MCHC RDW Plt Count MPV Neut % (Auto) Lymph % (Auto) [place] % (Auto) Eos % (Auto) Baso % (Auto) Neut # (Auto) Lymph # (Auto) [place] # (Auto) Eos # (Auto) Baso # (Auto) WBC Differential Diff Scan Differential Comment Platelet Estimate Platelet Morphology RBC Morphology Sodium 143 Potassium 3.7 Chloride 113 H Carbon Dioxide 18.2 L Anion Gap 12 BUN 41 H Creatinine 2.70 H Estimated GFR 17 L Random Glucose 86 Calcium 7.5 L TSH Free T4 Microbiology 02/07/18 21:40 Blood - Peripheral Aerobic Blood Culture - Preliminary No growth in 1 day 02/07/18 21:40 Blood - Peripheral Anaerobic Blood Culture - Preliminary No growth in 1 day 02/07/18 21:30 Blood - Peripheral Aerobic Blood Culture - Preliminary No growth in 1 day 02/07/18 21:30 Blood - Peripheral Anaerobic Blood Culture - Preliminary No growth in 1 day Assessment and Plan - Assessment (1) Diarrhea Code(s): R19.7 - Diarrhea, unspecified Status: Acute (2) Multifocal pneumonia Code(s): J18.9 - Pneumonia, unspecified organism Status: Acute (3) Acute kidney injury superimposed on CKD Code(s): N17.9 - Acute kidney failure, unspecified; N18.9 - Chronic kidney disease, unspecified Status: Acute - Plan This is an 87-year-old female patient with a history of CKD, HTN and fatty liver who presented to the ED with: Pulmonary hypertension Bilateral community-acquired pneumonia -Presented with shortness of breath on exertion x 1 week. Improved now. -Elevated BNP, likely secondary to chronic cirrhosis and pulmonary hypertension. -Chest x-ray reviewed suggesting some pulmonary edema. Abdominal/pelvis CT also reviewed showing possible bilateral pneumonia. -BNP was found to be elevated, patient was then given Lasix 40 mg IV BID. Changed to PO. Will monitor intake and output closely. -Patient does not have leukocytosis, hypoxia, fever or cough. Continue to monitor clinically. -Blood cultures negative to date. Follow. -Initially started on Ceftriaxone and Azithromycin in ED. Continue for now. -ECHO done and reviewed, adequate EF. PAP showing 40.9. Continue diuretics. Diarrhea, improving. Rule out c diff. History of cirrhosis -Patient admits to a 2-week history of diarrhea. -Abdominal/pelvis images reviewed showing cirrhosis with ascites. Umbilical and right inguinal hernia present and reproducible/nontender on exam. Abdomen soft. -Continue to monitor/continue diuresis. -Check stool studies including c diff, awaiting cultures. Chronic kidney disease stage stage IV -UA showing presence of bacteria, culture with no growth. -Unlikely UTI, patient denies any recent symptoms. -Creatinine 2.6/GFR 17 on presentation. After review of records, this seems to be baseline for patient. -Monitor BMP. Avoid nephrotoxins. Hypertension, chronic -Continue hydralazine. Unable to give ARBS/BERRY secondary to CKD. Thiazides are not appropriate secondary to receiving Lasix. -Positive orthostatic blood pressures initially. TEDs ordered. BP stable. -Recheck and trend. Hypothyroidism, chronic -TSH 50 on presentation. Patient states she has not taken her Synthroid for over 3 months. Will restart. -PCP to recheck in 4-6 weeks. DVT prophylaxis: SCDs. Heparin. Discharge Planning: Awaiting clinical improvement and placement for rehab.
[2018-02-09] MEDS: Azithromycin Inj 500 MG in Sodium Chlor 0.9% Inj 250 ML IV.SIG SCH (22:50)
[2018-02-10] MEDS: Levothyroxine 75 MCG Tablet PO SCH (05:35)
[2018-02-10] MEDS: Sertraline 50 MG Tablet PO SCH (08:22)
[2018-02-10] MEDS: hydrALAZINE 50 MG Tablet PO SCH ×3 (08:23→18:31)
[2018-02-10] MEDS: Pantoprazole Sodium 20 MG DR Tablet PO SCH (08:23)
[2018-02-10] MEDS: Calcitriol 0.25 MCG Capsule PO SCH (08:23)
[2018-02-10] MEDS: Furosemide 20 MG Tablet PO SCH (08:24)
[2018-02-10] MEDS: Amiodarone 200 MG Tablet PO SCH (08:24)
[2018-02-10] MEDS: Senna/Docusate Sodium 8.6/50 MG Tablet PO SCH ×2 (08:24→20:24)
[2018-02-10] MEDS: Timolol 0.5% Drops 5 ML Bottle EACH EYE SCH ×2 (08:26→20:25)
[2018-02-10] MEDS: Heparin - SQ 10,000 UNITS/ML Vial SQ SCH ×2 (08:26→20:25)
[2018-02-10] MEDS: Sodium Chloride 0.9% 2 ML Flush BID IV.FLUSH SCH ×2 (08:26→20:25)
--- NOTE | 2018-02-10 08:30 | P.PNIM ---
Subjective Interval history: Follow up pulmonary hypertension, pneumonia, diarrhea. Patient seen and examined , lying in bed comfortably in [facility]. No acute events overnight. Does complain of cough. VSS. Afebrile. Awaiting final c diff specimen results. Once improved discharge disposition will be rehab. Physical Exam Vital signs: Vital Signs 02/09/18 12:00 02/09/18 16:00 02/09/18 20:00 Temperature 97.4 F L 96.4 F L 97.7 F Pulse Rate 60 65 60 Respiratory Rate 20 20 18 Blood Pressure 134/60 156/68 H 126/58 L Pulse Oximetry 97 97 95 02/10/18 00:00 02/10/18 04:00 Temperature 96.5 F L 97.5 F L Pulse Rate 63 60 Respiratory Rate 18 18 Blood Pressure 158/77 H 171/73 H Pulse Oximetry 95 97 Intake & Output 02/09/18 02/10/18 02/10/18 18:59 06:59 18:59 Intake Total 360 / 360 530 / 530 Output Total 375 / 375 1400 / 1400 Balance -15 / -15 -870 / -870 Weight 46.8 kg Intake: IV 350 / 350 Azithromycin Inj 500 MG In NS 250 / 250 Inj 250 ML @ 250 mls/hr IV.SIG Q24H KATHERINE Rx#:[id number] Rocephin Inj 1,000 MG In NS Inj 100 / 100 100 ML @ 200 mls/hr IV.SIG Q24H KATHERINE Rx#:[id number] Oral 360 / 360 180 / 180 Output: Urine 375 / 375 800 / 800 Stool 600 / 600 Other: # Incontinent Voids 1 # Bowel Movements 1 Narrative: GENERAL: Well-developed, thin appear elderly female patient in [facility]. SKIN: Warm and dry. No rash. HEAD: Normocephalic. Atraumatic. EYES: Pupils equal and round. No scleral icterus. No injection or drainage. ENT: No nasal bleeding or discharge. Mucous membranes pink and moist. NECK: Supple. Trachea midline. CARDIOVASCULAR: Regular rate and rhythm. S1, S2 noted. RESPIRATORY: No accessory muscle use.Lung sounds clear today. Breath sounds equal bilaterally. GASTROINTESTINAL: Abdomen soft, mildly distended, umbilical hernia which is reducible. Right inguinal hernia present as well which is also reducible and nontender. Normoactive bowel sounds x4. MUSCULOSKELETAL: No obvious deformities. Extremities without clubbing, cyanosis , or edema. NEUROLOGICAL: Awake and alert, somewhat confused. No obvious cranial nerve deficits. Motor grossly within normal limits. 5/5 muscle strength in bilateral upper and lower extremities. Normal speech. Results - Labs CBC & Chem 7: 02/09/18 06:40 02/09/18 06:40 Laboratory Results - last 24 hr 02/08/18 02/08/18 02/08/18 07:25 17:30 17:30 Free T4 0.58 L Eosinophil Stool Smear None seen Stl C.difficile DNA Amp Positive H St C. diff Tox Epid 027 Negative Microbiology 02/07/18 21:19 Catheterized Urine Urine Culture - Preliminary No growth in 24 hours 02/07/18 21:40 Blood - Peripheral Aerobic Blood Culture - Preliminary No growth in 2 days 02/07/18 21:40 Blood - Peripheral Anaerobic Blood Culture - Preliminary No growth in 2 days 02/07/18 21:30 Blood - Peripheral Aerobic Blood Culture - Preliminary No growth in 2 days 02/07/18 21:30 Blood - Peripheral Anaerobic Blood Culture - Preliminary No growth in 2 days Assessment and Plan - Assessment (1) Diarrhea Code(s): R19.7 - Diarrhea, unspecified Status: Acute (2) Multifocal pneumonia Code(s): J18.9 - Pneumonia, unspecified organism Status: Acute (3) Acute kidney injury superimposed on CKD Code(s): N17.9 - Acute kidney failure, unspecified; N18.9 - Chronic kidney disease, unspecified Status: Acute - Plan This is an 87-year-old female patient with a history of CKD, HTN and fatty liver who presented to the ED with: Pulmonary hypertension Bilateral community-acquired pneumonia -Presented with shortness of breath on exertion x 1 week. Improved now. -Elevated BNP, likely secondary to chronic cirrhosis and pulmonary hypertension. -Chest x-ray reviewed suggesting some pulmonary edema. Abdominal/pelvis CT also reviewed showing possible bilateral pneumonia. -BNP was elevated, patient was then given Lasix 40 mg IV BID. Changed to PO and decreased to once daily. Will monitor intake and output closely. -Patient does not have leukocytosis, hypoxia, fever. Continue to monitor clinically. Does complain of cough overnight. -Blood cultures negative to date. Follow. -Initially started on Ceftriaxone and Azithromycin in ED. Continue for now. -ECHO done and reviewed, adequate EF. PAP showing 40.9. Continue diuretics. Diarrhea, improving. Rule out c diff. History of cirrhosis -Patient admits to a 2-week history of diarrhea. -Abdominal/pelvis images reviewed showing cirrhosis with ascites. Umbilical and right inguinal hernia present and reducible/nontender on exam. Abdomen soft. -Continue to monitor/continue diuresis. -Check stool studies including c diff, awaiting cultures. Chronic kidney disease stage stage IV -UA showing presence of bacteria, culture with no growth. -Unlikely UTI, patient denies any recent symptoms. -Creatinine 2.6/GFR 17 on presentation. After review of records, this seems to be baseline for patient. -Monitor BMP. Avoid nephrotoxins. Hypertension, chronic -Continue hydralazine. Unable to give ARBS/BERRY secondary to CKD. Thiazides are not appropriate secondary to receiving Lasix. -Positive orthostatic blood pressures. TEDs ordered. -YONI Camara. -Monitor BP trends. Encourage patient to transition positions slowly. Hypothyroidism, chronic -TSH 50 on presentation. Patient states she has not taken her Synthroid for over 3 months. Will restart. -PCP to recheck in 4-6 weeks. DVT prophylaxis: SCDs. Heparin. Discharge Planning: Awaiting clinical improvement and placement for rehab.
[2018-02-10] MEDS ORDERED: Furosemide 40 MG Tablet PO SCH (09:00)
[2018-02-10] MEDS ORDERED: Potassium Chloride 8 MEQ ER Capsule PO SCH (09:00)
--- NOTE | 2018-02-10 14:21 | P.DS ---
Date of admission: 02/07/18 21:53 Primary care physician: Levy Wheeler Anticipated date of discharge: 02/10/18 Brief History from admission: This is a pleasant 87-year-old female patient with a known medical history of hypertension, CKD, fatty liver who presented to the ED with multiple complaints including generalized weakness, fatigue, diarrhea, shortness of breath especially with exertion and worsening bilateral lower extremity edema. Patient is seen at the bedside and a relatively poor historian. No family at bedside, most of the history obtained in the medical record. Per patient, she does state that she has had diarrhea x 2 weeks along with diminished appetite. At her baseline, she lives at home alone and able to perform ADLs per self. Patient denies any recent fever, chills, headache, chest pain, nausea, vomiting or dysuria. Denies any recent antibiotic use. On presentation it was found that she has bilateral PNA, elevated BNP and suspected UTI. DS: Diagnosis - Discharge Diagnosis (1) Diarrhea Status: Acute (2) Multifocal pneumonia Status: Acute (3) Acute kidney injury superimposed on CKD Status: Acute DS: Medications - Discharge Medications Prescriptions: amoxicillin-pot clavulanate [Augmentin] 1 tab PO BID 4 Days #8 tab furosemide 20 mg PO DAILY 30 Days #30 tab potassium chloride [Klor-Con 8] 8 meq PO DAILY 30 Days #30 tab DS: Summary Hospital Course: This is an 87-year-old female patient with a history of CKD, HTN and fatty liver who presented to the ED with shortness of breath x 1 week. Elevated BNP, likely secondary to chronic cirrhosis and pulmonary hypertension. Chest x-ray reviewed suggesting some pulmonary edema. Abdominal/pelvis CT also reviewed showing possible bilateral pneumonia. Patient was then given Lasix 40 mg IV BID. Eventually changed to PO and decreased to once daily. CT initially bilateral community-acquired pneumonia. Patient did not have leukocytosis, hypoxia, fever. Blood cultures negative to date. Initially started on Ceftriaxone and Azithromycin in ED. Given PO antibiotics for home. ECHO done, adequate EF. PAP showing 40.9. Continue diuretics. Patient had diarrhea as well x 2 weeks, c diff was negative. Abdominal/pelvis images reviewed showing cirrhosis with ascites. Umbilical and right inguinal hernia present and reducible/nontender on exam. Abdomen soft. Chronic kidney disease stage stage IV , UA showing presence of bacteria, culture with no growth. Creatinine 2.6/GFR 17 on presentation. After review of records, this seems to be baseline for patient. Has a history of hypertension, continued on hydralazine. Unable to give ARBS/BERRY secondary to CKD. Thiazides are not appropriate secondary to receiving Lasix. Positive orthostatic blood pressures. TEDs ordered. Initially DC Cardura 4 mg, although restarted 1 mg PO on day of discharge due to increased BP. BP is now stabilized and controlled. Encouraged patient to transition positions slowly. Patient has a history of hypothyroidism, TSH 50 on presentation. Patient states she has not taken her Synthroid for over 3 months. Restarted. PCP to recheck TSH in 4-6 weeks. DC to SNF when CM arrange. RX as written. Diet as tolerated. Activity as tolerated, transition slowly. - Time Spent with Patient Total time spent providing and/or coordinating discharge services: Greater than 30 minutes - Quality: VTE Deep Vein Thrombosis/Pulmonary Embolism Present on Admission: No Exam Vital signs: Vital Signs 02/09/18 16:00 02/09/18 20:00 02/10/18 00:00 Temperature 96.4 F L 97.7 F 96.5 F L Pulse Rate 65 60 63 Respiratory Rate 20 18 18 Blood Pressure 156/68 H 126/58 L 158/77 H Pulse Oximetry 97 95 95 02/10/18 04:00 02/10/18 08:00 02/10/18 11:13 Temperature 97.5 F L 96 F L Pulse Rate 60 55 L 57 L Respiratory Rate 18 20 22 Blood Pressure 171/73 H 187/77 H Pulse Oximetry 97 97 02/10/18 12:00 Temperature Pulse Rate 55 L Respiratory Rate Blood Pressure Pulse Oximetry Intake & Output 02/09/18 02/10/18 02/10/18 18:59 06:59 18:59 Intake Total 360 / 360 530 / 530 Output Total 375 / 375 1400 / 1400 Balance -15 / -15 -870 / -870 Weight 46.8 kg Intake: IV 350 / 350 Azithromycin Inj 500 MG In NS 250 / 250 Inj 250 ML @ 250 mls/hr IV.SIG Q24H KATHERINE Rx#:[id number] Rocephin Inj 1,000 MG In NS Inj 100 / 100 100 ML @ 200 mls/hr IV.SIG Q24H KATHERINE Rx#:[id number] Oral 360 / 360 180 / 180 Output: Urine 375 / 375 800 / 800 Stool 600 / 600 Other: # Incontinent Voids 1 Date of Last Bowel Movement 02/10/18 # Bowel Movements 1 Narrative: GENERAL: Well-developed, thin appear elderly female patient in NAD. SKIN: Warm and dry. No rash. HEAD: Normocephalic. Atraumatic. EYES: Pupils equal and round. No scleral icterus. No injection or drainage. ENT: No nasal bleeding or discharge. Mucous membranes pink and moist. NECK: Supple. Trachea midline. CARDIOVASCULAR: Regular rate and rhythm. S1, S2 noted. RESPIRATORY: No accessory muscle use.Lung sounds clear today. Breath sounds equal bilaterally. GASTROINTESTINAL: Abdomen soft, mildly distended, umbilical hernia which is reducible. Right inguinal hernia present as well which is also reducible and nontender. Normoactive bowel sounds x4. MUSCULOSKELETAL: No obvious deformities. Extremities without clubbing, cyanosis , or edema. NEUROLOGICAL: Awake and alert, somewhat confused. No obvious cranial nerve deficits. Motor grossly within normal limits. 5/5 muscle strength in bilateral upper and lower extremities. Normal speech. Results Procedures completed during hospitalization: See above. Labs on day of discharge: Labs from last 24 hours 02/08/18 17:30 Stool C.difficile Ag Negative Stool C.difficile Toxin Negative Stl C.difficile DNA Amp Positive H Preliminary micro results at discharge 02/07/18 21:40 Aerobic Blood Culture - Preliminary Blood - Peripheral No growth in 3 days Anaerobic Blood Culture - Preliminary No growth in 3 days 02/07/18 21:30 Aerobic Blood Culture - Preliminary Blood - Peripheral No growth in 3 days Anaerobic Blood Culture - Preliminary No growth in 3 days - Impressions ITS Impressions Chest X-Ray 02/07/18 19:49 CONCLUSION: Mild bilateral interstitial pulmonary opacity more prominent than on the comparison study suggesting mild pulmonary edema and chronic lung disease. Head CT 02/07/18 19:54 CONCLUSION: Negative CT Head non contrast. . Abdomen/Pelvis CT 02/07/18 20:45 CONCLUSION: 1. Significant increase in amount of ascites compared to prior CT scan July 2017. Fluid extends into and umbilicus hernia and an enlarging right inguinal hernia. 2. Cirrhotic appearing liver. 3. Changed appearance to the lungs with multifocal areas of subsegmental consolidation in both lower lungs and small left pleural effusion. 4. Stable size 3.2 cm infrarenal abdominal aortic aneurysm. Discharge Plan - Discharge Disposition Patient Disposition: 03 Discharge to SNF - Discharge Condition Condition: Stable - Discharge Order Discharge Orders: Discharge Order (Routine); Ordered 02/10/18 Ordered By: Charisma Luz - Discharge Details Anticipated Discharge Date: 02/10/18 - Physicians Team Attending Provider: Pete Hanson Other Providers: Gabriela Ochoa
[2018-02-10] MEDS: Doxazosin 1 MG Tablet PO SCH (18:32)
[2018-02-10] MEDS: Azithromycin Inj 500 MG in Sodium Chlor 0.9% Inj 250 ML IV.SIG SCH (22:40)
[2018-02-11] MEDS: Levothyroxine 75 MCG Tablet PO SCH (06:29)
[2018-02-11] MEDS: Calcitriol 0.25 MCG Capsule PO SCH (08:42)
[2018-02-11] MEDS: Amiodarone 200 MG Tablet PO SCH (08:42)
[2018-02-11] MEDS: Senna/Docusate Sodium 8.6/50 MG Tablet PO SCH (08:43)
[2018-02-11] MEDS: Sertraline 50 MG Tablet PO SCH (08:43)
[2018-02-11] MEDS: Doxazosin 1 MG Tablet PO SCH (08:43)
[2018-02-11] MEDS: Pantoprazole Sodium 20 MG DR Tablet PO SCH (08:43)
[2018-02-11] MEDS: Furosemide 20 MG Tablet PO SCH (08:43)
[2018-02-11] MEDS: hydrALAZINE 50 MG Tablet PO SCH ×2 (08:43→12:48)
[2018-02-11] MEDS: Timolol 0.5% Drops 5 ML Bottle EACH EYE SCH (08:44)
[2018-02-11] MEDS: Heparin - SQ 10,000 UNITS/ML Vial SQ SCH (08:54)
[2018-02-11] MEDS: Sodium Chloride 0.9% 2 ML Flush BID IV.FLUSH SCH (10:53)
[2018-02-11 12:57] LABS: Chloride, Feces ND mmol/L (()); Osmolality, Feces ND mOsm/kg (()); Potassium, Feces ND mmol/L (()); Sodium, Feces ND mmol/L (())
--- NOTE | 2018-02-11 15:58 | P.PNIM ---
Subjective Interval history: 87-year-old female who is seen and examined today for follow-up on deconditioning, pneumonia. Patient is doing well. Patient was discharged yesterday to [facility], however she was not accepted. Patient is planned to be discharged to long-term facility once arrangements made. Patient with continued elevated blood pressure, remains afebrile. Physical Exam Vital signs: Vital Signs 02/10/18 16:00 02/10/18 17:55 02/10/18 20:00 Temperature 97.3 F L 97.4 F L Pulse Rate 56 L 65 Respiratory Rate 20 18 Blood Pressure 205/87 H 170/62 H 184/79 H Pulse Oximetry 97 98 02/10/18 21:20 02/11/18 00:00 02/11/18 03:30 Temperature 97.2 F L Pulse Rate 55 L 62 63 Respiratory Rate 16 18 16 Blood Pressure 190/80 H Pulse Oximetry 97 02/11/18 04:00 02/11/18 04:07 02/11/18 08:00 Temperature 97.4 F L 96.9 F L Pulse Rate 55 L 60 87 Respiratory Rate 18 17 Blood Pressure 236/100 H 204/70 H 186/69 H Pulse Oximetry 98 97 02/11/18 09:22 02/11/18 12:00 02/11/18 15:07 Temperature 97.2 F L Pulse Rate 50 L 59 L 55 L Respiratory Rate 19 17 18 Blood Pressure 190/76 H Pulse Oximetry 98 Intake & Output 02/10/18 02/11/18 02/11/18 18:59 06:59 18:59 Intake Total 240 / 240 440 / 440 Output Total 600 / 600 300 / 300 Balance -360 / -360 140 / 140 Weight 47.3 kg Intake: IV 350 / 350 Azithromycin Inj 500 MG In NS 250 / 250 Inj 250 ML @ 250 mls/hr IV.SIG Q24H KATHERINE Rx#:[id number] Rocephin Inj 1,000 MG In NS Inj 100 / 100 100 ML @ 200 mls/hr IV.SIG Q24H KATHERINE Rx#:[id number] Oral 240 / 240 90 / 90 Output: Urine 600 / 600 300 / 300 Other: Date of Last Bowel Movement 02/10/18 # Bowel Movements 5 Narrative: GENERAL: Well-developed, well-nourished, in no acute distress. alert and orientated HEENT: Head is normocephalic without any lesions or masses noted. Facial features are symmetric. Eyes: Extraocular muscles are intact. Conjunctivae were clear. NECK: Supple without any masses. Trachea midline no deviation. No JVD, CARDIAC: Regular rhythm, regular rate. S1/S2 are heard. No murmurs gallops or rubs. LUNGS: Clear to auscultation bilaterally. No wheeze, rhonchi or rales. No use of accessory muscles on inspiration or expiration. ABDOMEN: Soft, nontender. Nondistended. Bowel sounds heard in all 4 quadrants. No organomegaly or masses. Negative rebound, negative guarding EXTREMITIES: No edema, pulses are equal bilaterally. No cyanosis or clubbing NEUROLOGY: Mood and affect appear appropriate. Cranial nerves II through XII grossly intact. Moving all extremities, speech is clear Results - Labs CBC & Chem 7: 02/09/18 06:40 02/09/18 06:40 Laboratory Results - last 24 hr 02/08/18 17:30 Stool Sodium ND Stool Potassium ND Stool Chloride ND Stool Osmolality ND Stool Osmotic Gap ND Stool Phosphorous ND Stool Magnesium ND Microbiology 02/07/18 21:40 Blood - Peripheral Aerobic Blood Culture - Preliminary No growth in 4 days 02/07/18 21:40 Blood - Peripheral Anaerobic Blood Culture - Preliminary No growth in 4 days 02/07/18 21:30 Blood - Peripheral Aerobic Blood Culture - Preliminary No growth in 4 days 02/07/18 21:30 Blood - Peripheral Anaerobic Blood Culture - Preliminary No growth in 4 days - Procedures ECHOCARDIOGRAM CONCLUSIONS The left ventricular systolic function is normal with an estimated ejection fraction in the range of 60-65% Normal left ventricular size. Wall thickness is normal. No regional wall motion abnormalities are present. Mild thickening of the mitral valve leaflets. Trace mitral valve regurgitation. Mitral annular calcification is present. Aortic valve sclerosis is present. Mild aortic valve regurgitation. Mild thickening of the tricuspid valve leaflets. There is mild tricuspid valve regurgitation. The estimated pulmonary arterial pressure is 40.9 mmHg. 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 Assessment and Plan - Assessment (1) Diarrhea Code(s): R19.7 - Diarrhea, unspecified Status: Acute (2) Multifocal pneumonia Code(s): J18.9 - Pneumonia, unspecified organism Status: Acute (3) Acute kidney injury superimposed on CKD Code(s): N17.9 - Acute kidney failure, unspecified; N18.9 - Chronic kidney disease, unspecified Status: Acute - Plan Pulmonary hypertension, uncontrolled -Apresoline 50 mg 3 times daily -Cardura 1 mg daily -Lasix 20 mg daily -Add Norvasc 10 mg daily -Clonidine as needed Chest x-ray with bilateral interstitial pulmonary opacity suggestive of mild pulmonary edema and chronic lung disease -Chest x-ray reviewed suggesting some pulmonary edema. Abdominal/pelvis CT also reviewed showing possible bilateral pneumonia. -Patient does not have leukocytosis, hypoxia, fever. Continue to monitor clinically. Does complain of cough overnight. -Patient continued on Rocephin and Zithromax -Patient on duo nebs and Mucomyst -Patient did have elevated BNP -Lasix 40 mg IV BID. Changed to PO and decreased to once daily. -Will monitor intake and output closely. -Echocardiogram was performed, see results above Diarrhea, improving. Rule out c diff. History of cirrhosis -Patient admits to a 2-week history of diarrhea. -Abdominal/pelvis images reviewed showing cirrhosis with ascites. Umbilical and right inguinal hernia present and reducible/nontender on exam. Abdomen soft. -Continue to monitor/continue diuresis. -Claustrum difficile cultures were negative Chronic kidney disease stage stage IV -UA showing presence of bacteria, culture with no growth. -Monitor BMP. Avoid nephrotoxins. Hypothyroidism, chronic -TSH 59.9. Patient states she has not taken her Synthroid for over 3 months. -Levothyroxine 75 mcg was started -PCP to recheck in 4-6 weeks. DVT prophylaxis: -Sequential compression devices -Subcutaneous heparin Discharge Planning: Discharge to long-term facility once arrangements made by case management
[2018-02-11] MEDS ORDERED: amLODIPine 10 MG Tablet PO SCH (16:00)
--- NOTE | 2018-02-11 16:09 | P.DCO ---
- Diagnosis (1) Physical deconditioning Status: Acute (2) Congestive heart failure Status: Acute (3) Diarrhea Status: Acute - Physical Therapy Order: Evaluate and treat, Improve ambulation, Strength and gait training - Home Health Nursing Order: Medical education, Signs/symptoms of disease process, Nursing assessment with vital signs - Case Management Consult Case Management Consult-Home Health: Yes - Certification I have seen patient Rachel Pompa on 02/11/18. My clinical findings support the need for the requested home health care services because: Deconditioned with increased weakness, Limited ability to care for self I certify that my clinical findings support that this patient is homebound because: Unsteady gait/balance, Unsafe to leave home unassisted
== END 2018-02-11 17:50 | disposition home health service (06) ==
LOC: PHED 19:26 → PHEDA 21:53 → PH3 23:14
PROVIDERS: ADMIT Hospitalist; ATTEND Hospitalist

== ENCOUNTER 2018-03-01 11:16 | Inpatient (IN) ==
--- NOTE | 2018-03-01 12:06 | ED ---
HPI General Chief Complaint: Dizziness Stated Complaint: Rt side lower back pain x 2 weeks Time Seen by Provider: 03/01/18 11:46 Source: patient and family Mode of arrival: ambulatory Limitations: altered mental status History of Present Illness HPI Narrative: Patient presents for evaluation accompanied by her daughter. Patient reports waking up in the middle night and just not feeling right. Denies any fever or chills. Denies any cough. Denies any new urinary or bowel symptoms. States she is unsteady and fell during the night hitting her head. Denies any neck pain. Denies any loss of consciousness. Apparent mild to moderate difficulty with recall. Daughter reports a recent hospitalization for loose stools that was C. difficile positive. Treated and cleared. Discharged to home alone with home health. Last night was the first night patient was without home health. Per the daughter they are discussing fdc placement and working with a child protective services social worker but patient is mildly resistant. Ambulates with a walker. Daughter questions whether or not the patient is taking medications as prescribed. Reports using daily pillboxes which the patient ignores and reports that she gets her own medications out of the bottles. MD complaint: Reports difficulty walking Onset (ago): hour(s) (-) Timing: awoke with symptoms Description: Reports off-balance History of similar episodes: Yes History of trauma: Yes Severity: mild Relieving factors: nothing Exacerbating factors: nothing Associated symptoms: Reports denies other symptoms Related Data Home Medications Medication Instructions Recorded Confirmed Synthroid 75 mcg PO DAILY 02/08/18 03/01/18 amiodarone 200 mg PO DAILY 02/08/18 03/01/18 calcitriol 0.25 mcg PO DAILY 02/08/18 03/01/18 hydralazine 50 mg PO TID 02/08/18 03/01/18 omeprazole 20 mg PO DAILY NEB 02/08/18 03/01/18 oxybutynin 5 mg PO BID 02/08/18 03/01/18 sertraline 50 mg PO DAILY 02/08/18 03/01/18 timolol 1 drp OPHTHALMIC (EYE) BID 02/08/18 03/01/18 Previous Rx's Medication Instructions Recorded furosemide 20 mg PO DAILY 30 Days #30 tab 02/10/18 potassium chloride [Klor-Con 8] 8 meq PO DAILY 30 Days #30 tab 02/10/18 Allergies Allergy/AdvReac Type Severity Reaction Status Date / Time No Known Allergies Allergy Verified 03/01/18 11:27 Review of Systems ROS: all other systems reviewed are negative [facility] Medical History Medical History Elevated cholesterol (Acute) Fatty liver (Acute) Glaucoma (Acute) Hernia of abdominal cavity (Acute) Hypertension (Acute) Kidney problem (Acute) Surgical History Surgical History History of (Acute) Family History Family History Other Family history non-contributory Social History Social History Substance History: No History of Abuse Second Hand Smoke Exposure: No Smoking Status: Never smoker How Often Do You Have a Drink Containing Alcohol: Never Recent Travel in [facility] within the Last 8 Weeks: No Recent Out of Country Travel within the Last 8 Weeks: No Exam Narrative Exam Narrative: GENERAL: Failure to thrive, frail and thin SKIN: Focused skin assessment warm/dry. HEAD: Normocephalic. Mild abrasion to the posterior scalp measuring approximate 1 cm in diameter, no hematoma EYES: No scleral icterus. No injection or drainage. NECK: Supple, trachea midline. No JVD or lymphadenopathy. CARDIOVASCULAR: Regular rate and rhythm bradycardic, without murmurs, gallops, or rubs. RESPIRATORY: Breath sounds equal bilaterally. No accessory muscle use. GASTROINTESTINAL: Abdomen soft, normal bowel sounds, diffusely tender, nondistended. Umbilical hernia noted MUSCULOSKELETAL: No cyanosis, mild to moderate lower extremity edema left greater than right without erythema negative Homans. BACK: Nontender without obvious deformity. No CVA tenderness. Course Initial Documented Vital Signs Temperature 97.9 F 03/01/18 11:27 Pulse Rate 49 L 03/01/18 11:27 Respiratory Rate 18 03/01/18 11:27 Blood Pressure 176/75 H 03/01/18 11:27 Pulse Oximetry 98 03/01/18 11:27 Last Documented Vital Signs Temperature 97.9 F 03/01/18 11:27 Pulse Rate 51 L 03/01/18 13:11 Respiratory Rate 16 03/01/18 13:11 Blood Pressure 216/88 H 03/01/18 13:11 Pulse Oximetry 96 03/01/18 13:11 Medical Decision Making MDM Narrative Medical Screen Exam Complete: Yes Emergency Medical Condition: Yes Differential Diagnosis Differential Diagnosis: Dementia, sundowning, UTI, subdural hematoma, failure to thrive, fall risk Medical Records Medical records reviewed: Yes I reviewed the patient's medical records. Lab Data Lab results reviewed: Yes I reviewed the patient's lab results. Result diagrams: 03/01/18 12:08 03/01/18 12:08 Lab Results 03/01/18 03/01/18 03/01/18 Range/Units 12:02 12: 12:08 CBC w Diff Auto diff final WBC 7.2 (4.0-11.0) th/mm3 RBC 3.74 L (4.00-5.30) mil/mm3 Hgb 10.8 L (11.6-15.3) gm/dL Hct 33.6 L (35.0-46.0) % MCV 90.0 (80.0-100.0) fL MCH 29.0 (27.0-34.0) pg MCHC 32.2 (32.0-36.0) % RDW 15.3 (11.6-17.2) % Plt Count 253 (150-450) th/mm3 MPV 9.5 (7.0-11.0) fL Neut % (Auto) 62.0 (16.0-70.0) % Lymph % (Auto) 21.0 (9.0-44.0) % Howell % (Auto) 14.6 H (0.0-8.0) % Eos % (Auto) 2.1 (0.0-4.0) % Baso % (Auto) 0.3 (0.0-2.0) % Neut # (Auto) 4.4 (1.8-7.7) th/mm3 Lymph # (Auto) 1.5 (1.0-4.8) th/mm3 Howell # (Auto) 1.1 H (0.0-0.9) th/mm3 Eos # (Auto) 0.2 (0.0-0.4) th/mm3 Baso # (Auto) 0.0 (0.0-0.2) th/mm3 WBC Differential . Differential Comment . Sodium 137 (136-145) meq/L Potassium 4.5 (3.5-5.1) meq/L Chloride 107 (98-107) meq/L Carbon Dioxide 19.9 L (21.0-32.0) meq/L Anion Gap 10 (5-15) meq/L BUN 54 H (7-18) mg/dL Creatinine 4.10 H (0.50-1.00) mg/dL Estimated GFR 10 L (>89) mL/min POC Glucose (68-110) mg/dl Random Glucose 126 H (74-106) mg/dL Calcium 7.8 L (8.5-10.1) mg/dL Magnesium 2.3 (1.5-2.5) mg/dL Total Bilirubin 0.4 (0.2-1.0) mg/dL AST 62 H (15-37) U/L ALT 46 (10-53) U/L Alkaline Phosphatase 272 H (45-117) U/L Total Protein 6.8 (6.4-8.2) g/dL Albumin 2.4 L (3.4-5.0) g/dL TSH Greater than 100.000 H (0.358-3.740) uIU/mL 03/01/18 Range/Units 12:15 CBC w Diff WBC (4.0-11.0) th/mm3 RBC (4.00-5.30) mil/mm3 Hgb (11.6-15.3) gm/dL Hct (35.0-46.0) % MCV (80.0-100.0) fL MCH (27.0-34.0) pg MCHC (32.0-36.0) % RDW (11.6-17.2) % Plt Count (150-450) th/mm3 MPV (7.0-11.0) fL Neut % (Auto) (16.0-70.0) % Lymph % (Auto) (9.0-44.0) % Howell % (Auto) (0.0-8.0) % Eos % (Auto) (0.0-4.0) % Baso % (Auto) (0.0-2.0) % Neut # (Auto) (1.8-7.7) th/mm3 Lymph # (Auto) (1.0-4.8) th/mm3 Howell # (Auto) (0.0-0.9) th/mm3 Eos # (Auto) (0.0-0.4) th/mm3 Baso # (Auto) (0.0-0.2) th/mm3 WBC Differential Differential Comment Sodium (136-145) meq/L Potassium (3.5-5.1) meq/L Chloride (98-107) meq/L Carbon Dioxide (21.0-32.0) meq/L Anion Gap (5-15) meq/L BUN (7-18) mg/dL Creatinine (0.50-1.00) mg/dL Estimated GFR (>89) mL/min POC Glucose 148 H (68-110) mg/dl Random Glucose (74-106) mg/dL Calcium (8.5-10.1) mg/dL Magnesium (1.5-2.5) mg/dL Total Bilirubin (0.2-1.0) mg/dL AST (15-37) U/L ALT (10-53) U/L Alkaline Phosphatase (45-117) U/L Total Protein (6.4-8.2) g/dL Albumin (3.4-5.0) g/dL TSH (0.358-3.740) uIU/mL Imaging Data Radiologist's impression: Cervical Spine CT 03/01/18 11:56 CONCLUSION: 1. No fracture is identified. 2. There is 4 mm of anterolisthesis of C4 on C5 of uncertain chronicity but may be related to the bilateral facet arthrosis. 3. Multilevel degenerative disc disease, as above, without spinal canal stenosis identified. Chest X-Ray 03/01/18 11:56 CONCLUSION: Mild bibasilar airspace opacity could represent atelectasis or airspace consolidation. Head CT 03/01/18 11:56 CONCLUSION: 1. Right posterior scalp soft tissue swelling. No fracture or acute intracranial abnormality is identified. 2. Chronic findings include generalized atrophy and chronic white matter changes. . ECG Data EKG Prior to Arrival: No Attestation: I personally reviewed and interpreted this ECG as follows: (EKG sinus bradycardia rate of 50, no ST segment elevations or depression) Discharge Plan Discharge Disposition Patient Disposition: ED Admit(ED Internal Use Only) Discharge Condition Condition: Stable Discharge Order Discharge Orders: ED Use Only Admit Order (Routine); Ordered 03/01/18 Ordered By: Hari Willett Discharge Details Diagnosis: Physical deconditioning, Acute kidney injury superimposed on chronic kidney disease, Contusion of scalp, Anemia, At high risk for falls, At risk for medication noncompliance Physicians Team ED Provider: Hari Willett Attending Provider: Shannan Rojas Rxs /Orders / Referrals /Forms Prescriptions: No Action hydralazine 50 mg Tablet 50 mg PO TID RF: 0 calcitriol 0.25 mcg Capsule 0.25 mcg PO DAILY RF: 0 amiodarone 200 mg Tablet 200 mg PO DAILY RF: 0 omeprazole 20 mg PO DAILY NEB RF: 0 timolol 0.5 % Drops 1 drp OPHTHALMIC (EYE) BID RF: 0 sertraline 50 mg Tablet 50 mg PO DAILY RF: 0 Synthroid 75 mcg PO DAILY RF: 0 oxybutynin 5 mg PO BID RF: 0 potassium chloride [Klor-Con 8] 8 mEq Tablet Extended Release 8 meq PO DAILY 30 Days Qty: 30 RF: 0 furosemide 20 mg Tablet 20 mg PO DAILY 30 Days Qty: 30 RF: 0 Discharge Interventions Interventions: Vital Signs Last Done: 03/01/18 14:04 Status ED Status: Admitted Patient
[2018-03-01 12:18] LABS: Baso % (Auto) 0.3 % (0.0-2.0); Eos # (Auto) 0.2 th/mm3 (0.0-0.4); Eos % (Auto) 2.1 % (0.0-4.0); Hematocrit 33.6 % (35.0-46.0); Hemoglobin 10.8 gm/dL (11.6-15.3); Lymph # (Auto) 1.5 th/mm3 (1.0-4.8); Mean Corpuscular HGB Conc 32.2 % (32.0-36.0); Mean Platelet Volume 9.5 fL (7.0-11.0); Mono # (Auto) 1.1 th/mm3 (0.0-0.9); Mono % (Auto) 14.6 % (0.0-8.0); Neut # (Auto) 4.4 th/mm3 (1.8-7.7); Platelet Count 253 th/mm3 (150-450); Red Blood Count 3.74 mil/mm3 (4.00-5.30); Red Cell Distribution Width 15.3 % (11.6-17.2); White Blood Count 7.2 th/mm3 (4.0-11.0)
--- NOTE | 2018-03-01 12:29 | XR ---
EXAM DATE: 03/01/2018 12:18 PM EST AGE/SEX: 87 years / Female INDICATIONS: Short of breath, cough CLINICAL DATA: This is the patient's initial encounter. Patient reports that signs and symptoms have been present for 1 week and indicates a pain score of 0/10. MEDICAL/SURGICAL HISTORY: Hypertension. None. COMPARISON: [facility], CHEST 2V PA&LAT, 02/07/2018. . FINDINGS: Single AP view of the chest demonstrates cardiac silhouette size at the upper limits for normal with calcification of the aorta. There is mild bibasilar opacity. No pleural effusion or pneumothorax is i dentified. The bones and soft tissues demonstrate no acute abnormality. CONCLUSION: Mild bibasilar airspace opacity could represent atelectasis or airspace consolidation. Electronically signed by: Dirk Osorio MD 03/01/2018 12:27 PM EST
[2018-03-01 12:30] LABS: Chloride 107 meq/L (98-107); Potassium 4.5 meq/L (3.5-5.1); Sodium 137 meq/L (136-145)
[2018-03-01 12:33] LABS: Calcium 7.8 mg/dL (8.5-10.1)
[2018-03-01 12:34] LABS: Albumin 2.4 g/dL (3.4-5.0); Anion Gap 10 meq/L (5-15); Blood Urea Nitrogen 54 mg/dL (7-18); Carbon Dioxide 19.9 meq/L (21.0-32.0); Glucose,Random 126 mg/dL (74-106); Magnesium 2.3 mg/dL (1.5-2.5)
[2018-03-01 12:37] LABS: Alanine Aminotransferase 46 U/L (10-53); Aspartate Aminotransferase 62 U/L (15-37); Glomerular Filtration Rate 10 mL/min (>89)
[2018-03-01 12:38] LABS: Total Protein 6.8 g/dL (6.4-8.2)
[2018-03-01 12:40] LABS: Alkaline Phosphatase 272 U/L (45-117)
--- NOTE | 2018-03-01 12:54 | CT ---
EXAM DATE: 03/01/2018 12:49 PM EST AGE/SEX: 87 years / Female INDICATIONS: Fell last night. Posterior head pain. CLINICAL DATA: This is the patient's initial encounter. Patient reports that signs and symptoms have been present for 2 days and indicates a pain score of 5/10. MEDICAL/SURGICAL HISTORY: Congestive heart failure. Hypertension. None. RADIATION DOSE: 53.91 CTDI (mGy) COMPARISON: [facility], CT HEAD W/O CONTRAST, 02/07/2018. . TECHNIQUE: CT of the head without contrast. Using automated exposure control and adjustment of the mA and/or kV according to patient size, radiation dose was kept as low as reasonably achievable to ob tain optimal diagnostic quality images. DICOM format image data is available electronically for revi ew and comparison. FINDINGS: Cerebrum: There is moderate generalized cerebral atrophy. Ventricles are normal given the degree of atrophy. There is moderate periventricular white matter low attenuation. No midline shift, mass le kevyn, hemorrhage or acute infarction. No extraaxial fluid collections are seen. Posterior Fossa: The cerebellum and brainstem demonstrate no acute abnormality. The 4th ventricle is midline. The cerebellopontine angle is within normal limits. Extracranial: The visualized sinuses are clear. There is right posterior scalp soft tissue swelling at the high convexity. Skull: The calvaria is intact. No skull fracture. CONCLUSION: 1. Right posterior scalp soft tissue swelling. No fracture or acute intracranial abnormality is iden tified. 2. Chronic findings include generalized atrophy and chronic white matter changes. . Electronically signed by: Dirk Osorio MD 03/01/2018 12:52 PM EST
--- NOTE | 2018-03-01 13:38 | CT ---
EXAM DATE: 03/01/2018 1:24 PM EST AGE/SEX: 87 years / Female INDICATIONS: Fell last night. Neck pain. CLINICAL DATA: This is the patient's initial encounter. Patient reports that signs and symptoms have been present for 2 days and indicates a pain score of 4/10. MEDICAL/SURGICAL HISTORY: Congestive heart failure. Hypertension. None. RADIATION DOSE: 24.26 CTDI (mGy) COMPARISON: No prior exams available for comparison. TECHNIQUE: Contiguous axial images were obtained using helical multirow detector technique. The vol umetric data was post-processed with multiplanar reconstruction in oblique axial, sagittal, and coron al planes. Using automated exposure control and adjustment of the mA and/or kV according to patient s ize, radiation dose was kept as low as reasonably achievable to obtain optimal diagnostic quality brian ges. DICOM format image data is available electronically for review and comparison. FINDINGS: Vertebrae: No fracture is identified. Vertebral body height is maintained. Alignment: There is 4 mm of anterolisthesis of C4 on C5. The craniocervical junction and C1-C2 level demonstrate no significant abnormality. There is a partia lly mineralized pannus posterior to the odontoid process. C2-C3: No disc herniation, canal stenosis, or neural foraminal stenosis is identified. C3-C4: Mild decreased disc height with diffuse posterior disc osteophyte complex and small uncoverte bral osteophytes. There is mild facet arthrosis bilaterally. No significant spinal canal stenosis or neural foraminal narrowing is identified. C4-C5: There is decreased disc height with degenerative endplate change. 4 mm of anterolisthesis is present and there is moderate bilateral facet arthrosis. Posterior disc osteophyte complex with uncov ertebral osteophyte is present. There is no spinal canal stenosis. There is mild bilateral neural for aminal narrowing. C5-C6: There is decreased disc height with diffuse disc osteophyte complex. No spinal canal stenosis or neural foraminal stenosis is appreciated. C6-C7: Decreased disc height with minimal posterior disc osteophyte complex. No canal or neural fora marvin narrowing is identified. C7-T1: No disc herniation, canal stenosis, or neural foraminal stenosis is identified. Other: The visualized surrounding structures demonstrate no acute abnormality. CONCLUSION: 1. No fracture is identified. 2. There is 4 mm of anterolisthesis of C4 on C5 of uncertain chronicity but may be related to the bi lateral facet arthrosis. 3. Multilevel degenerative disc disease, as above, without spinal canal stenosis identified. Electronically signed by: Dirk Osorio MD 03/01/2018 1:36 PM EST
[2018-03-01] MEDS ORDERED: Temazepam 15 MG Capsule PO PRN (14:14)
[2018-03-01] MEDS ORDERED: Acetaminophen 325 MG Tablet PO PRN (14:14)
[2018-03-01] MEDS ORDERED: Bisacodyl 10 MG Supp RECTAL PRN (14:14)
--- NOTE | 2018-03-01 14:14 | P.HP ---
History of Present Illness Primary Care Physician: Allan Wheeler Chief Complaint: Unable to care for self History of Present Illness: 87-year-old female with known history of hypertension, hyperlipidemia , chronic kidney disease stage IV who presented to the hospital for evaluation of unable to care for herself. Patient did have recent hospitalization from until 02/11/18. During the hospitalization patient was unable to care for herself at that time. It was recommended that the patient be discharged to rehab facility however patient did not want to go there and was discharged home with home health care. Patient was undergoing outpatient care with home health care with aids. As indicated the patient was rather noncompliant with her medications. Not taking them as she is supposed to. Patient has not been eating or drinking. Patient cannot tell me exactly last time that she ate anything or how much. Family at bedside indicated that home health care recommended hospice. However no consultation was made at that time. Apparently the patient got up in the middle the night and is not feeling well and she did fall last night hitting her head. So the daughter brought the patient in for evaluation. Patient was found to have multiple medical problems which is directly proportionate to the patient's noncompliance, failure to thrive, failure to participate in care. Patient with acute renal failure, hypertensive emergency, possible pneumonia. Patient will be admitted the hospital for management. Did discuss with daughter and patient about palliative care evaluation. Did try to obtain DNR status, however patient is not orientated to year, date. The daughter indicates that the patient has in her paperwork a DO NOT RESUSCITATE, however the daughter does not have it on her at this time. She indicates that it is on file here at the hospital. - Diagnosis (1) Hypertensive emergency (2) Acute kidney injury superimposed on chronic kidney disease (3) Diarrhea (4) Physical deconditioning (5) Contusion of scalp (6) At high risk for falls (7) At risk for medication noncompliance (8) Urinary tract infection Inpatient Certification: I certify that the inpatient services were ordered in accordance with Medicare regulations governing the order. This includes certification that hospital inpatient services are reasonable and necessary and in the case of services not specified as inpatient-only under 42 CFR 419.22(n), that they are appropriately provided as inpatient services in accordance to with the 2-midnight benchmark under 43 CFR 412.3(e) Review of Systems All other systems reviewed negative except as stated in HPI Constitutional: Reports fatigue, Reports lack of energy, Reports malaise Gastrointestinal: Reports loose stools PMFSH - History History Provided By: Patient, Family Member - Medical History Medical History: Medical History (Last Updated 03/01/18 @ 14:27 by JOSEFINA Koenig) Chronic kidney disease, stage IV (severe) Elevated cholesterol Fatty liver Glaucoma Hernia of abdominal cavity Hypertension - Surgical History Surgical History: Surgical History (Last Reviewed 03/01/18 @ 14:22 by JOSEFINA Koenig) History of - Family History Family History: Family History (Last Reviewed 03/01/18 @ 14:22 by JOSEFINA Koenig) Other Family history non-contributory - Tobacco History Second Hand Smoke Exposure: No Smoking Status: Never smoker - Alcohol History How Often Do You Have a Drink Containing Alcohol: Never - Substance Use History Substance History: No History of Abuse - Travel History Recent Travel in the [place] Within the Last 8 Weeks: No Recent Travel Out of the Country Within the Last 8 Weeks: No - Immunization History Tetanus Immunization: Unsure Medications and Allergies Active Medications: Active Medications Sodium Chloride (Ns Flush) 2 ml IV.FLUSH PRN PRN PRN Reason: FLUSH AFTER USING IV ACCESS Allergies Allergy/AdvReac Type Severity Reaction Status Date / Time No Known Allergies Allergy Verified 03/01/18 11:27 Home Medications Medication Instructions Recorded Confirmed Type Synthroid 75 mcg PO DAILY 02/08/18 03/01/18 History amiodarone 200 mg PO DAILY 02/08/18 03/01/18 History calcitriol 0.25 mcg PO DAILY 02/08/18 03/01/18 History hydralazine 50 mg PO TID 02/08/18 03/01/18 History omeprazole 20 mg PO DAILY NEB 02/08/18 03/01/18 History oxybutynin 5 mg PO BID 02/08/18 03/01/18 History sertraline 50 mg PO DAILY 02/08/18 03/01/18 History timolol 1 drp OPHTHALMIC (EYE) BID 02/08/18 03/01/18 History Exam Vital signs: Vital Signs 03/01/18 11:27 03/01/18 12:24 03/01/18 12:33 Temperature 97.9 F Pulse Rate 49 L 52 L 56 L Respiratory Rate 18 18 Blood Pressure 176/75 H 213/110 H Pulse Oximetry 98 96 96 03/01/18 13:11 03/01/18 14:04 Temperature Pulse Rate 51 L Respiratory Rate 16 Blood Pressure 216/88 H 238/73 H Pulse Oximetry 96 Intake & Output 02/28/18 03/01/18 03/01/18 18:59 06:59 18:59 Weight 42.1 kg Narrative: GENERAL: Well-developed, malnourished and cachectic, in no acute distress. alert and orientated HEENT: Head is normocephalic without any lesions or masses noted. Facial features are symmetric. Eyes: Pupils equal round reactive to light. Extraocular muscles are intact. Conjunctivae were clear. Oropharyngeal: Pharynx without any erythema edema. Tongue is midline without deviation. Buccal mucosa is dry without any masses or lesions NECK: Supple without any masses. Trachea midline no deviation. No JVD, no bruits are appreciated CARDIAC: Regular rhythm, regular rate. S1/S2 are heard. 2/6 ejection murmur, no gallops or rubs. LUNGS: Clear to auscultation bilaterally. No wheeze, rhonchi or rales. No use of accessory muscles on inspiration or expiration. ABDOMEN: Soft, nontender. Nondistended. Bowel sounds heard in all 4 quadrants. No organomegaly or masses. Negative rebound, negative guarding EXTREMITIES: No edema, pulses are equal bilaterally. No cyanosis or clubbing, increased skin turgor, obvious signs of dehydration NEUROLOGY: Mood and affect appear appropriate. Cranial nerves II through XII grossly intact. Muscle strength 5/5 in upper and lower extremities bilaterally. Deep tendon reflexes are 2+ in upper and lower extremities bilaterally. Results - Labs CBC & Chem 7: 03/01/18 12:08 03/01/18 12:08 Labs: Laboratory Results - last 24 hr 03/01/18 03/01/18 03/01/18 12:02 12:08 12:08 CBC w Diff Auto diff final WBC 7.2 RBC 3.74 L Hgb 10.8 L Hct 33.6 L MCV 90.0 MCH 29.0 MCHC 32.2 RDW 15.3 Plt Count 253 MPV 9.5 Neut % (Auto) 62.0 Lymph % (Auto) 21.0 [place] % (Auto) 14.6 H Eos % (Auto) 2.1 Baso % (Auto) 0.3 Neut # (Auto) 4.4 Lymph # (Auto) 1.5 [place] # (Auto) 1.1 H Eos # (Auto) 0.2 Baso # (Auto) 0.0 WBC Differential . Differential Comment . Sodium 137 Potassium 4.5 Chloride 107 Carbon Dioxide 19.9 L Anion Gap 10 BUN 54 H Creatinine 4.10 H Estimated GFR 10 L POC Glucose Random Glucose 126 H Calcium 7.8 L Magnesium 2.3 Total Bilirubin 0.4 AST 62 H ALT 46 Alkaline Phosphatase 272 H Total Protein 6.8 Albumin 2.4 L TSH Greater than 100.000 H 03/01/18 12:15 CBC w Diff WBC RBC Hgb Hct MCV MCH MCHC RDW Plt Count MPV Neut % (Auto) Lymph % (Auto) [place] % (Auto) Eos % (Auto) Baso % (Auto) Neut # (Auto) Lymph # (Auto) [place] # (Auto) Eos # (Auto) Baso # (Auto) WBC Differential Differential Comment Sodium Potassium Chloride Carbon Dioxide Anion Gap BUN Creatinine Estimated GFR POC Glucose 148 H Random Glucose Calcium Magnesium Total Bilirubin AST ALT Alkaline Phosphatase Total Protein Albumin TSH - Imaging Impressions Cervical Spine CT 03/01/18 11:56 CONCLUSION: 1. No fracture is identified. 2. There is 4 mm of anterolisthesis of C4 on C5 of uncertain chronicity but may be related to the bilateral facet arthrosis. 3. Multilevel degenerative disc disease, as above, without spinal canal stenosis identified. Chest X-Ray 03/01/18 11:56 CONCLUSION: Mild bibasilar airspace opacity could represent atelectasis or airspace consolidation. Head CT 03/01/18 11:56 CONCLUSION: 1. Right posterior scalp soft tissue swelling. No fracture or acute intracranial abnormality is identified. 2. Chronic findings include generalized atrophy and chronic white matter changes. . Caprini VTE Risk Assessment Caprini VTE Risk Assessment: Moderate/High Risk (score >= 2) Caprini Risk Assessment Model: Point Value = 1 Point Value = 2 Point Value = 3 Point Value = 5 Age 41-60 Minor surgery BMI > 25 kg/m2 Swollen legs Varicose veins or History of unexplained or recurrent spontaneous Oral contraceptives or hormone replacement Sepsis (< 1 month) Serious lung disease, including pneumonia (< 1 month) Abnormal pulmonary function Acute myocardial infarction Congestive heart failure (< 1 month) History of inflammatory bowel disease Medical patient at bed rest Age 61-74 Arthroscopic surgery Major open surgery (> 45 min) Laparoscopic surgery (> 45 min) Malignancy Confined to bed (> 72 hours) Immobilizing plaster cast Central venous access Age >= 75 History of VTE Family history of VTE Factor V Leiden Prothrombin [id number] Lupus anticoagulant Anticardiolipin antibodies Elevated serum homocysteine Heparin-induced thrombocytopenia Other congenital or acquired thrombophilia Stroke (< 1 month) Elective arthroplasty Hip, pelvis, or leg fracture Acute spinal cord injury (< 1 month) Prophylaxis Regimen: Total Risk Factor Score Risk Level Prophylaxis Regimen 0-1 Low Early ambulation 2 Moderate Order ONE of the following: *Sequential Compression Device (SCD) *Heparin 5000 units SQ BID 3-4 Higher Order ONE of the following medications: *Heparin 5000 units SQ TID *Enoxaparin/Lovenox 40 mg SQ daily (WT < 150 kg, CrCl > 30 mL/min) *Enoxaparin/Lovenox 30 mg SQ daily (WT < 150 kg, CrCl > 10-29 mL/min) *Enoxaparin/Lovenox 30 mg SQ BID (WT < 150 kg, CrCl > 30 mL/min) AND/OR *Sequential Compression Device (SCD) 5 or more Highest Order ONE of the following medications: *Heparin 5000 units SQ TID (Preferred with Epidurals) *Enoxaparin/Lovenox 40 mg SQ daily (WT < 150 kg, CrCl > 30 mL/min) *Enoxaparin/Lovenox 30 mg SQ daily (WT < 150 kg, CrCl > 10-29 mL/min) *Enoxaparin/Lovenox 30 mg SQ BID (WT < 150 kg, CrCl > 30 mL/min) AND *Sequential Compression Device (SCD) Assessment and Plan - Assessment (1) Hypertensive emergency Code(s): I16.1 - Hypertensive emergency Status: Acute (2) Acute kidney injury superimposed on chronic kidney disease Code(s): N17.9 - Acute kidney failure, unspecified; N18.9 - Chronic kidney disease, unspecified Status: Acute (3) Diarrhea Code(s): R19.7 - Diarrhea, unspecified Status: Acute (4) Physical deconditioning Code(s): R53.81 - Other malaise Status: Acute (5) Contusion of scalp Code(s): S00.03XA - Contusion of scalp, initial encounter Status: Acute (6) At high risk for falls Code(s): Z91.81 - History of falling Status: Acute (7) At risk for medication noncompliance Code(s): Z91.89 - Other specified personal risk factors, not elsewhere classified Status: Acute (8) Urinary tract infection Code(s): N39.0 - Urinary tract infection, site not specified Status: Acute - Plan Hypertensive emergency -Likely due to medication noncompliance -Chest x-ray showing possible atelectasis versus airspace consolidation. No signs of acute pulmonary edema secondary to hypertensive emergency. Patient is afebrile, no leukocytosis, continue monitor for infection process -patient was given clonidine in the emergency department, blood pressure still elevated -May need to start Cardene drip for blood pressure management -Home medications were continued -Clonidine as needed Closed head injury secondary to fall at home -CT scan did not indicate any acute abnormality -Continue frequent neuro check for postconcussion syndrome Acute renal failure superimposed on chronic kidney disease stage IV -Secondary to poor p.o. intake, loose stools and continued diuretic use -We will do IV hydration for 2 L of fluid -Continue monitor renal function -Avoid nephrotoxins Medical noncompliance, failure to thrive, malnutrition -Palliative care consultation -Case management consultation for half-way facility placement -Dietitian consultation -PT/OT evaluation -Start Megace for appetite stimulant -Dietary supplement with each meal Urinary tract infection -Start Rocephin IV -Continue monitor culture for appropriate antibiotics Hypothyroidism -TSH greater than 100 -Patient was resumed on her home medications DVT prevention -Sequential compression devices, (5) Contusion of scalp Qualifiers: Encounter type: initial encounter Qualified Code(s): S00.03XA - Contusion of scalp, initial encounter
[2018-03-01] MEDS: Sod Chloride 0.9% Inj 1,000 ML IV.CONT SCH ×2 (14:34→20:02)
[2018-03-01] MEDS ORDERED: niCARdipine Inj 25 MG in Sodium Chlor 0.9% Inj 240 ML IV.CONT PRN (14:36)
[2018-03-01 14:39] LABS: Bilirubin,Urine Negative (Negative); Clarity,Urine Turbid (Clear); Color,Urine Yellow (Yellw/Straw); Glucose,Urine (UA) Negative (Negative); Leukocyte Esterase,Urine Trace (Negative); Nitrite,Urine Negative (Negative); PH,Urine 6.5 (5.0-8.5)
[2018-03-01 14:40] LABS: Collection Time,Urine 1426 hours
[2018-03-01 14:47] LABS: Amorphous Sediment,Urine Many /hpf; Bacteria,Urine Many /hpf; Mucus,Urine Moderate /lpf (Occasional)
[2018-03-01] MEDS: hydrALAZINE 50 MG Tablet PO SCH (20:11)
[2018-03-01] MEDS: Senna/Docusate Sodium 8.6/50 MG Tablet PO SCH (20:18)
--- NOTE | 2018-03-01 20:44 | ECG ---
Date Performed: 03/01/2018 Time Performed: 12:07:01 PTAGE: 87 years EKG: SINUS BRADYCARDIA NONSPECIFIC T-WAVE ABNORMALITY Since the previous tracing, no significant change noted ABNORMAL ECG PREVIOUS TRACING : 02/07/2018 20.01 DOCTOR: Adriano Liriano Interpretating Date/Time 03/01/2018 20:44:16
[2018-03-01] MEDS: Timolol 0.5% Drops 5 ML Bottle EACH EYE SCH (21:38)
[2018-03-02] MEDS: Levothyroxine 75 MCG Tablet PO SCH (05:54)
[2018-03-02 05:56] LABS: Baso % (Auto) 0.6 % (0.0-2.0); Eos # (Auto) 0.3 th/mm3 (0.0-0.4); Eos % (Auto) 3.8 % (0.0-4.0); Hematocrit 31.8 % (35.0-46.0); Hemoglobin 10.3 gm/dL (11.6-15.3); Lymph # (Auto) 1.5 th/mm3 (1.0-4.8); Lymph % (Auto) 19.7 % (9.0-44.0); Mean Corpuscular HGB Conc 32.5 % (32.0-36.0); Mean Corpuscular Hemoglobin 29.1 pg (27.0-34.0); Mean Corpuscular Volume 89.5 fL (80.0-100.0); Mono % (Auto) 13.4 % (0.0-8.0); Neut # (Auto) 4.6 th/mm3 (1.8-7.7); Neut % (Auto) 62.5 % (16.0-70.0); Platelet Count 214 th/mm3 (150-450); Red Blood Count 3.55 mil/mm3 (4.00-5.30); White Blood Count 7.4 th/mm3 (4.0-11.0)
[2018-03-02 06:01] LABS: Potassium 4.1 meq/L (3.5-5.1)
[2018-03-02 06:05] LABS: Calcium 7.5 mg/dL (8.5-10.1)
[2018-03-02 06:06] LABS: Carbon Dioxide 18.1 meq/L (21.0-32.0)
[2018-03-02] MEDS: Sod Chloride 0.9% Inj 1,000 ML IV.CONT SCH (06:11)
[2018-03-02] MEDS: Senna/Docusate Sodium 8.6/50 MG Tablet PO SCH ×2 (08:39→20:50)
[2018-03-02] MEDS: Timolol 0.5% Drops 5 ML Bottle EACH EYE SCH ×2 (08:39→20:50)
[2018-03-02] MEDS: Sertraline 50 MG Tablet PO SCH (08:39)
[2018-03-02] MEDS: Calcitriol 0.25 MCG Capsule PO SCH (08:39)
[2018-03-02] MEDS: hydrALAZINE 50 MG Tablet PO SCH ×3 (08:39→17:04)
[2018-03-02] MEDS: Pantoprazole Sodium 20 MG DR Tablet PO SCH (08:39)
[2018-03-02] MEDS: Amiodarone 200 MG Tablet PO SCH (08:39)
--- NOTE | 2018-03-02 08:56 | P.PNIM ---
Subjective Interval history: 87-year-old female seen and examined today for follow-up on unable to care for self, failure to thrive, renal failure, hypertensive emergency. Patient is laying in bed comfortable. States that she is doing well denies any new complaints. Vital signs are improved. Patient is no longer on Cardene drip. Patient remains afebrile Physical Exam Vital signs: Vital Signs 03/01/18 11:27 03/01/18 12:24 03/01/18 12:33 Temperature 97.9 F Pulse Rate 49 L 52 L 56 L Respiratory Rate 18 18 Blood Pressure 176/75 H 213/110 H Pulse Oximetry 98 96 96 03/01/18 13:11 03/01/18 14:04 03/01/18 15:37 Temperature Pulse Rate 51 L 54 L Respiratory Rate 16 Blood Pressure 216/88 H 238/73 H 142/54 H Pulse Oximetry 96 03/01/18 16:13 03/01/18 16:41 03/01/18 17:04 Temperature Pulse Rate 52 L Respiratory Rate 28 H Blood Pressure 110/68 Pulse Oximetry 99 99 03/01/18 17:15 03/01/18 17:30 03/01/18 18:00 Temperature Pulse Rate 54 L 52 L 50 L Respiratory Rate 21 15 21 Blood Pressure 121/48 L 94/40 L 116/47 L Pulse Oximetry 99 98 99 03/01/18 18:15 03/01/18 18:30 03/01/18 18:45 Temperature Pulse Rate 54 L 56 L 50 L Respiratory Rate 20 32 H 21 Blood Pressure 122/56 L 124/52 L 74/43 L Pulse Oximetry 98 97 98 03/01/18 19:00 03/01/18 19:15 03/01/18 19:30 Temperature Pulse Rate 46 L 46 L 46 L Respiratory Rate 13 13 13 Blood Pressure 119/44 L 122/47 L 126/44 L Pulse Oximetry 98 99 100 03/01/18 19:45 03/01/18 19:50 03/01/18 20:00 Temperature Pulse Rate 46 L 50 L Respiratory Rate 14 17 Blood Pressure 74/43 L 149/56 H Pulse Oximetry 100 98 100 03/01/18 20:30 03/01/18 21:00 03/01/18 21:15 Temperature 98.4 F Pulse Rate 50 L 46 L 48 L Respiratory Rate 20 16 17 Blood Pressure 118/60 141/58 H 142/53 H Pulse Oximetry 99 98 99 03/01/18 21:30 03/01/18 21:45 03/01/18 22:00 Temperature Pulse Rate 44 L 46 L 44 L Respiratory Rate 13 22 13 Blood Pressure 136/50 L 153/62 H 149/66 H Pulse Oximetry 99 99 98 03/01/18 23:15 03/01/18 23:30 03/02/18 00:00 Temperature 97.3 F L Pulse Rate 46 L 46 L 46 L Respiratory Rate 20 21 12 Blood Pressure 136/63 149/68 H 138/63 Pulse Oximetry 100 99 97 03/02/18 01:00 03/02/18 02:00 03/02/18 03:00 Temperature Pulse Rate 40 L 40 L 44 L Respiratory Rate 12 13 12 Blood Pressure 136/56 L 147/55 H 148/54 H Pulse Oximetry 97 98 99 03/02/18 04:00 03/02/18 05:00 03/02/18 05:45 Temperature 97.6 F Pulse Rate 42 L 48 L 48 L Respiratory Rate 12 22 19 Blood Pressure 134/42 L 154/52 H 170/56 H Pulse Oximetry 97 99 98 03/02/18 06:00 03/02/18 07:00 03/02/18 07:15 Temperature Pulse Rate 48 L 44 L 42 L Respiratory Rate 19 12 14 Blood Pressure 158/69 H 172/57 H 158/55 H Pulse Oximetry 99 98 96 03/02/18 07:30 03/02/18 07:45 03/02/18 07:48 Temperature Pulse Rate 44 L 42 L Respiratory Rate 12 14 Blood Pressure 161/57 H 164/59 H Pulse Oximetry 98 96 96 03/02/18 08:00 03/02/18 08:15 Temperature Pulse Rate 44 L 42 L Respiratory Rate 17 16 Blood Pressure 159/64 H 150/61 H Pulse Oximetry 98 99 Intake & Output 03/01/18 03/02/18 03/02/18 18:59 06:59 18:59 Intake Total 210 / 210 400 / 400 Output Total 300 / 300 Balance 210 / 210 100 / 100 Weight 42.1 kg 44.1 kg Intake: IV 210 / 210 400 / 400 NS Inj 1,000 ML @ 84 mls/hr IV. 100 / 100 400 / 400 CONT .[id number] KATHERINE Rx#: [id number] Cardene Inj 25 MG In NS Inj 240 10 / 10 ML @ 5 MG/HR 50 mls/hr IV.CONT TITRATE PRN Rx#:[id number] Rocephin Inj 1,000 MG In NS Inj 100 / 100 100 ML @ 200 mls/hr IV.SIG Q24H KATHERINE Rx#:[id number] Output: Urine 300 / 300 Other: Date of Last Bowel Movement 03/01/18 03/01/18 Narrative: GENERAL: Well-developed, malnourished and cachectic, in no acute distress. alert and orientated HEENT: Head is normocephalic without any lesions or masses noted. Facial features are symmetric. Eyes: Extraocular muscles are intact. Conjunctivae were clear. NECK: Supple without any masses. Trachea midline no deviation. No JVD, CARDIAC: Regular rhythm, regular rate. S1/S2 are heard. 2/6 ejection murmur, no gallops or rubs. LUNGS: Clear to auscultation bilaterally. No wheeze, rhonchi or rales. No use of accessory muscles on inspiration or expiration. ABDOMEN: Soft, nontender. Nondistended. Bowel sounds heard in all 4 quadrants. No organomegaly or masses. Negative rebound, negative guarding EXTREMITIES: No edema, pulses are equal bilaterally. No cyanosis or clubbing, increased skin turgor, obvious signs of dehydration NEUROLOGY: Mood and affect appear appropriate. Cranial nerves II through XII grossly intact. Moving all extremities, speech is clear Results - Labs CBC & Chem 7: 03/02/18 05:32 03/02/18 05:32 Laboratory Results - last 24 hr 03/01/18 03/01/18 03/01/18 12:02 12:08 12:08 CBC w Diff Auto diff final WBC 7.2 RBC 3.74 L Hgb 10.8 L Hct 33.6 L MCV 90.0 MCH 29.0 MCHC 32.2 RDW 15.3 Plt Count 253 MPV 9.5 Neut % (Auto) 62.0 Lymph % (Auto) 21.0 [place] % (Auto) 14.6 H Eos % (Auto) 2.1 Baso % (Auto) 0.3 Neut # (Auto) 4.4 Lymph # (Auto) 1.5 [place] # (Auto) 1.1 H Eos # (Auto) 0.2 Baso # (Auto) 0.0 WBC Differential . Differential Comment . Sodium 137 Potassium 4.5 Chloride 107 Carbon Dioxide 19.9 L Anion Gap 10 BUN 54 H Creatinine 4.10 H Estimated GFR 10 L POC Glucose Random Glucose 126 H Calcium 7.8 L Magnesium 2.3 Total Bilirubin 0.4 AST 62 H ALT 46 Alkaline Phosphatase 272 H Total Protein 6.8 Albumin 2.4 L TSH Greater than 100.000 H Ur Collection Type Urine Color Urine Clarity Urine pH Ur Specific [place] Urine Protein Urine Glucose (UA) Urine Ketones Urine Occult Blood Urine Nitrate Urine Bilirubin Urine Urobilinogen Ur Leukocyte Esterase Urine RBC Urine WBC Urine WBC Clumps Ur Squamous Epith Cells Amorphous Sediment Urine Bacteria Urine Mucus Urine Yeast Micro UA Comment Ur Microscopic Review Urine Culture Comments Urine Collection Time Stl C.difficile DNA Amp St C. diff Tox Epid 027 03/01/18 03/01/18 03/01/18 12:15 14:26 14:26 CBC w Diff WBC RBC Hgb Hct MCV MCH MCHC RDW Plt Count MPV Neut % (Auto) Lymph % (Auto) [place] % (Auto) Eos % (Auto) Baso % (Auto) Neut # (Auto) Lymph # (Auto) [place] # (Auto) Eos # (Auto) Baso # (Auto) WBC Differential Differential Comment Sodium Potassium Chloride Carbon Dioxide Anion Gap BUN Creatinine Estimated GFR POC Glucose 148 H Random Glucose Calcium Magnesium Total Bilirubin AST ALT Alkaline Phosphatase Total Protein Albumin TSH Ur Collection Type Clean catch Urine Color Yellow Urine Clarity Turbid H Urine pH 6.5 Ur Specific [place] 1.020 Urine Protein 300 or greater H Urine Glucose (UA) Negative Urine Ketones Negative Urine Occult Blood Trace Urine Nitrate Negative Urine Bilirubin Negative Urine Urobilinogen 1.0 Ur Leukocyte Esterase Trace H Urine RBC 4-15 H Urine WBC 6-8 H Urine WBC Clumps Occasional H Ur Squamous Epith Cells 6-10 H Amorphous Sediment Many H Urine Bacteria Many H Urine Mucus Moderate H Urine Yeast Few H Micro UA Comment Culture indicated Ur Microscopic Review Microscopic reviewed Urine Culture Comments Culture indicated Urine Collection Time 1426 Stl C.difficile DNA Amp Negative St C. diff Tox Epid 027 Negative 03/02/18 03/02/18 05:32 05:32 CBC w Diff Auto diff final WBC 7.4 RBC 3.55 L Hgb 10.3 L Hct 31.8 L MCV 89.5 MCH 29.1 MCHC 32.5 RDW 15.0 Plt Count 214 MPV 10.0 Neut % (Auto) 62.5 Lymph % (Auto) 19.7 [place] % (Auto) 13.4 H Eos % (Auto) 3.8 Baso % (Auto) 0.6 Neut # (Auto) 4.6 Lymph # (Auto) 1.5 [place] # (Auto) 1.0 H Eos # (Auto) 0.3 Baso # (Auto) 0.0 WBC Differential . Differential Comment . Sodium 139 Potassium 4.1 Chloride 110 H Carbon Dioxide 18.1 L Anion Gap 11 BUN 50 H Creatinine 3.60 H Estimated GFR 12 L POC Glucose Random Glucose 96 Calcium 7.5 L Magnesium Total Bilirubin AST ALT Alkaline Phosphatase Total Protein Albumin TSH Ur Collection Type Urine Color Urine Clarity Urine pH Ur Specific [place] Urine Protein Urine Glucose (UA) Urine Ketones Urine Occult Blood Urine Nitrate Urine Bilirubin Urine Urobilinogen Ur Leukocyte Esterase Urine RBC Urine WBC Urine WBC Clumps Ur Squamous Epith Cells Amorphous Sediment Urine Bacteria Urine Mucus Urine Yeast Micro UA Comment Ur Microscopic Review Urine Culture Comments Urine Collection Time Stl C.difficile DNA Amp St C. diff Tox Epid 027 - Imaging Impressions Cervical Spine CT 03/01/18 11:56 CONCLUSION: 1. No fracture is identified. 2. There is 4 mm of anterolisthesis of C4 on C5 of uncertain chronicity but may be related to the bilateral facet arthrosis. 3. Multilevel degenerative disc disease, as above, without spinal canal stenosis identified. Chest X-Ray 03/01/18 11:56 CONCLUSION: Mild bibasilar airspace opacity could represent atelectasis or airspace consolidation. Head CT 03/01/18 11:56 CONCLUSION: 1. Right posterior scalp soft tissue swelling. No fracture or acute intracranial abnormality is identified. 2. Chronic findings include generalized atrophy and chronic white matter changes. . Assessment and Plan - Assessment (1) Hypertensive emergency Code(s): I16.1 - Hypertensive emergency Status: Acute (2) Acute kidney injury superimposed on chronic kidney disease Code(s): N17.9 - Acute kidney failure, unspecified; N18.9 - Chronic kidney disease, unspecified Status: Acute (3) Diarrhea Code(s): R19.7 - Diarrhea, unspecified Status: Acute (4) Physical deconditioning Code(s): R53.81 - Other malaise Status: Acute (5) Contusion of scalp Code(s): S00.03XA - Contusion of scalp, initial encounter Status: Acute (6) At high risk for falls Code(s): Z91.81 - History of falling Status: Acute (7) At risk for medication noncompliance Code(s): Z91.89 - Other specified personal risk factors, not elsewhere classified Status: Acute (8) Urinary tract infection Code(s): N39.0 - Urinary tract infection, site not specified Status: Acute - Plan Hypertensive emergency, improved -Likely due to medication noncompliance -Chest x-ray showing possible atelectasis versus airspace consolidation. No signs of acute pulmonary edema secondary to hypertensive emergency. Patient is afebrile, no leukocytosis, continue monitor for infection process -patient was given clonidine in the emergency department, blood pressure still elevated -Cardene drip was started in the ICU, however has been turned off since 6:45 PM last evening -Home medications were continued -Clonidine as needed Closed head injury secondary to fall at home -CT scan did not indicate any acute abnormality -Continue frequent neuro check for postconcussion syndrome Acute renal failure superimposed on chronic kidney disease stage IV, improving -Secondary to poor p.o. intake, loose stools and continued diuretic use -Status post IV hydration for 2 L of fluid -Continue monitor renal function -Avoid nephrotoxins Medical noncompliance, failure to thrive, malnutrition -Palliative care consultation -Case management consultation for shelter facility placement -Dietitian consultation -PT/OT evaluation -Continue Megace for appetite stimulant -Dietary supplement with each meal Urinary tract infection -Continue Rocephin -Continue monitor culture for appropriate antibiotics Hypothyroidism -TSH greater than 100 -Patient was resumed on her home medications DVT prevention -Sequential compression devices, (5) Contusion of scalp Qualifiers: Encounter type: initial encounter Qualified Code(s): S00.03XA - Contusion of scalp, initial encounter
[2018-03-03 04:44] LABS: Baso # (Auto) 0.2 th/mm3 (0.0-0.2); Baso % (Auto) 2.1 % (0.0-2.0); Eos # (Auto) 0.3 th/mm3 (0.0-0.4); Eos % (Auto) 3.4 % (0.0-4.0); Hematocrit 30.3 % (35.0-46.0); Hemoglobin 9.7 gm/dL (11.6-15.3); Lymph # (Auto) 1.8 th/mm3 (1.0-4.8); Lymph % (Auto) 22.4 % (9.0-44.0); Mean Corpuscular Hemoglobin 28.9 pg (27.0-34.0); Mean Platelet Volume 9.8 fL (7.0-11.0); Mono # (Auto) 1.1 th/mm3 (0.0-0.9); Neut # (Auto) 4.8 th/mm3 (1.8-7.7); Neut % (Auto) 59.1 % (16.0-70.0); Platelet Count 175 th/mm3 (150-450); Red Blood Count 3.36 mil/mm3 (4.00-5.30); White Blood Count 8.2 th/mm3 (4.0-11.0)
[2018-03-03 04:52] LABS: Potassium 4.2 meq/L (3.5-5.1)
[2018-03-03 05:02] LABS: Calcium 7.3 mg/dL (8.5-10.1); Carbon Dioxide 16.1 meq/L (21.0-32.0)
[2018-03-03 05:08] LABS: Albumin 1.8 g/dL (3.4-5.0); Calcium-Albumin Corrected 9.1 mg/dL (8.5-10.1)
--- NOTE | 2018-03-03 07:26 | P.PNIM ---
Subjective Interval history: 87-year-old female who is seen examined today for follow-up on failure to thrive, medication noncompliance. Patient denies any new complaints. Creatinine is improving as well as I was hoping. Blood pressure is improved. Patient remains afebrile. Physical Exam Vital signs: Vital Signs 03/02/18 07:30 03/02/18 07:45 03/02/18 07:48 Temperature Pulse Rate 44 L 42 L Respiratory Rate 12 14 Blood Pressure 161/57 H 164/59 H Pulse Oximetry 98 96 96 03/02/18 08:00 03/02/18 08:15 03/02/18 09:00 Temperature 97.5 F L Pulse Rate 44 L 42 L 44 L Respiratory Rate 17 16 17 Blood Pressure 159/64 H 150/61 H 167/67 H Pulse Oximetry 96 99 98 03/02/18 09:59 03/02/18 10:59 03/02/18 11:59 Temperature 97.8 F Pulse Rate 18 L 40 L 42 L Respiratory Rate 21 14 14 Blood Pressure 139/56 L 137/62 138/58 L Pulse Oximetry 99 99 99 03/02/18 12:59 03/02/18 13:59 03/02/18 15:59 Temperature 97.1 F L Pulse Rate 42 L 42 L 46 L Respiratory Rate 13 12 19 Blood Pressure 158/57 H 139/54 L 165/83 H Pulse Oximetry 100 99 03/02/18 16:59 03/02/18 17:59 03/02/18 18:00 Temperature Pulse Rate 50 L 48 L 48 L Respiratory Rate 32 H 18 20 Blood Pressure 179/62 H 172/85 H Pulse Oximetry 03/02/18 19:00 03/02/18 19:15 03/02/18 20:00 Temperature 97.7 F Pulse Rate 48 L 46 L Respiratory Rate 15 15 Blood Pressure 168/73 H 149/55 H Pulse Oximetry 98 100 99 03/02/18 21:00 03/02/18 22:00 03/02/18 23:00 Temperature Pulse Rate 48 L 44 L 44 L Respiratory Rate 14 15 15 Blood Pressure 177/86 H 154/67 H 154/70 H Pulse Oximetry 98 98 98 03/03/18 00:00 03/03/18 01:00 03/03/18 02:00 Temperature 99.5 F Pulse Rate 44 L 44 L 46 L Respiratory Rate 15 20 21 Blood Pressure 168/70 H 156/58 H 170/56 H Pulse Oximetry 99 98 98 03/03/18 02:59 03/03/18 03:00 03/03/18 04:00 Temperature 98.3 F Pulse Rate 44 L 44 L Respiratory Rate 17 16 Blood Pressure 152/57 H 152/57 H 159/59 H Pulse Oximetry 98 98 03/03/18 05:00 03/03/18 06:00 Temperature Pulse Rate 48 L 44 L Respiratory Rate 16 15 Blood Pressure 150/52 H 143/48 H Pulse Oximetry 98 98 Intake & Output 03/02/18 03/03/18 03/03/18 18:59 06:59 18:59 Intake Total 1100 / 1100 Balance 1100 / 1100 Weight 44.1 kg 45.5 kg Intake: IV 1100 / 1100 NS Inj 1,000 ML @ 84 mls/hr IV. 1000 / 1000 CONT .[id number] KATHERINE Rx#: [id number] Rocephin Inj 1,000 MG In NS Inj 100 / 100 100 ML @ 200 mls/hr IV.SIG Q24H KATHERINE Rx#:[id number] Other: # Voids 2 Date of Last Bowel Movement 03/02/18 03/02/18 # Bowel Movements 3 Weight On Admission 44.1 kg Narrative: GENERAL: Well-developed, malnourished and cachectic, in no acute distress. alert and orientated HEENT: Head is normocephalic without any lesions or masses noted. Facial features are symmetric. Eyes: Extraocular muscles are intact. Conjunctivae were clear. NECK: Supple without any masses. Trachea midline no deviation. CARDIAC: Regular rhythm, regular rate. S1/S2 are heard. 2/6 ejection murmur, no gallops or rubs. LUNGS: Clear to auscultation bilaterally. No wheeze, rhonchi or rales. No use of accessory muscles on inspiration or expiration. ABDOMEN: Soft, nontender. Nondistended. Bowel sounds heard in all 4 quadrants. No organomegaly or masses. Negative rebound, negative guarding EXTREMITIES: No edema, pulses are equal bilaterally. No cyanosis or clubbing, increased skin turgor, obvious signs of dehydration NEUROLOGY: Mood and affect appear appropriate. Cranial nerves II through XII grossly intact. Moving all extremities, speech is clear Results - Labs CBC & Chem 7: 03/03/18 04:28 03/03/18 04:28 Laboratory Results - last 24 hr 03/03/18 03/03/18 04:28 04:28 CBC w Diff Auto diff final WBC 8.2 RBC 3.36 L Hgb 9.7 L Hct 30.3 L MCV 90.0 MCH 28.9 MCHC 32.0 RDW 15.0 Plt Count 175 MPV 9.8 Neut % (Auto) 59.1 Lymph % (Auto) 22.4 [place] % (Auto) 13.0 H Eos % (Auto) 3.4 Baso % (Auto) 2.1 H Neut # (Auto) 4.8 Lymph # (Auto) 1.8 [place] # (Auto) 1.1 H Eos # (Auto) 0.3 Baso # (Auto) 0.2 WBC Differential . Differential Comment . Sodium 138 Potassium 4.2 Chloride 110 H Carbon Dioxide 16.1 L Anion Gap 12 BUN 53 H Creatinine 3.70 H Estimated GFR 12 L Random Glucose 88 Calcium 7.3 L* Calcium Adj for Albumin 9.1 Albumin 1.8 L D Microbiology 03/01/18 14:26 Clean Catch Urine Urine Culture - Final 50-100,000 cfu/mL mixed shelby (probable contaminants ) Assessment and Plan - Assessment (1) Hypertensive emergency Code(s): I16.1 - Hypertensive emergency Status: Acute (2) Acute kidney injury superimposed on chronic kidney disease Code(s): N17.9 - Acute kidney failure, unspecified; N18.9 - Chronic kidney disease, unspecified Status: Acute (3) Diarrhea Code(s): R19.7 - Diarrhea, unspecified Status: Acute (4) Physical deconditioning Code(s): R53.81 - Other malaise Status: Acute (5) Contusion of scalp Code(s): S00.03XA - Contusion of scalp, initial encounter Status: Acute (6) At high risk for falls Code(s): Z91.81 - History of falling Status: Acute (7) At risk for medication noncompliance Code(s): Z91.89 - Other specified personal risk factors, not elsewhere classified Status: Acute (8) Urinary tract infection Code(s): N39.0 - Urinary tract infection, site not specified Status: Acute - Plan Hypertensive emergency, improved -Likely due to medication noncompliance -Chest x-ray showing possible atelectasis versus airspace consolidation. No signs of acute pulmonary edema secondary to hypertensive emergency. Patient is afebrile, no leukocytosis, continue monitor for infection process -patient was given clonidine in the emergency department, blood pressure still elevated -Cardene drip was started in the ICU, has been discontinued, no longer requiring -Home medications were continued -Clonidine as needed Closed head injury secondary to fall at home -CT scan did not indicate any acute abnormality -Continue frequent neuro check for postconcussion syndrome Acute renal failure superimposed on chronic kidney disease stage IV, -Secondary to poor p.o. intake, loose stools and continued diuretic use -Status post IV hydration for 2 L of fluid, will give at least 1 more liter of fluid -Continue monitor renal function -Avoid nephrotoxins Medical noncompliance, failure to thrive, malnutrition -Awaiting palliative care consultation -Case management consultation for nursing home facility placement -Dietitian consultation -PT/OT evaluation -Continue Megace for appetite stimulant -Dietary supplement with each meal Urinary tract infection -Continue Rocephin -Urine culture indicating 50-100,000 colonies of mixed [place], possible contaminant Hypothyroidism -TSH greater than 100 -Patient was resumed on her home medications DVT prevention -Sequential compression devices, Discharge Planning: Discharge planning to nursing home facility. Awaiting palliative care consult and renal functions to improve (5) Contusion of scalp Qualifiers: Encounter type: initial encounter Qualified Code(s): S00.03XA - Contusion of scalp, initial encounter
[2018-03-03] MEDS ORDERED: Sod Chloride 0.9% Inj 1,000 ML IV.CONT SCH (07:30)
[2018-03-03] MEDS: Timolol 0.5% Drops 5 ML Bottle EACH EYE SCH ×2 (08:57→21:26)
[2018-03-03] MEDS: Amiodarone 200 MG Tablet PO SCH (08:57)
[2018-03-03] MEDS: Senna/Docusate Sodium 8.6/50 MG Tablet PO SCH (08:57)
[2018-03-03] MEDS: Calcitriol 0.25 MCG Capsule PO SCH (08:57)
[2018-03-03] MEDS: Pantoprazole Sodium 20 MG DR Tablet PO SCH (08:57)
[2018-03-03] MEDS: Sertraline 50 MG Tablet PO SCH (08:57)
[2018-03-03] MEDS: hydrALAZINE 50 MG Tablet PO SCH ×3 (08:57→21:25)
[2018-03-03] MEDS: Levothyroxine 75 MCG Tablet PO SCH (09:07)
--- NOTE | 2018-03-03 12:12 | P.CONPAL ---
Consult Service: Palliative Care Requesting Physician: Jaime Hunter Reason for Consult: a. To assist with evaluation and management of symptoms including: Pain, dizziness b. To assist medical decision maker(s) with: better understanding of current medical conditions; weighing benefits/burdens of medical treatment options; making medical treatment decisions. Primary Care Provider: Allan Wheeler History of Present Illness History of Present Illness: This is a very pleasant 87-year-old [place] female with an extensive past medical history of gastrointestinal disorders, hypothyroidism, CAD, CKD and frequent falls who came to the ER for evaluation of altered mental status. Patient reports waking up in the middle of the night and just not feeling right. She states that she is unsteady, dizzy and fell during the night, her head. She denied any neck pain or loss of consciousness did have some mild to moderate difficulty with recall. She had had a recent hospitalization positive for C. difficile and was discharged home with home health. She had refused rehab. The daughter reports using daily pillboxes which the patient ignores and states that she gets her own medications out of the bottles. She has an unstable gait and ambulates with a quad cane or a walker. Diagnostic data on admission: * WBC 7.2, hemoglobin 10.8, hematocrit 33.6, platelets 253, sodium 137, potassium 4.5, BUN 54, creatinine 4.10, EGFR 10, calcium 7.8 magnesium 2.3, total bilirubin 0.4, AST 62, ALT 46, alkaline phosphatase 272, total protein 6.8 , albumin 2.4, TSH greater than 100. * CT of the cervical spine without contrast shows no fracture with a 4 mm anterolisthesis of C4 on C5 of uncertain chronicity, possibly related to the bilateral facet arthrosis. Multilevel degenerative disc disease without spinal canal stenosis. * Chest x-ray showed mild bibasilar airspace opacity possibly representing atelectasis or airspace consolidation. * Electrocardiogram shows sinus bradycardia with nonspecific T wave abnormalities. * CT of the head without contrast showed right posterior scalp soft tissue swelling without fracture or other acute abnormality. Chronic findings include generalized atrophy and chronic white matter changes. She was found to be bradycardic, which may contribute to her dizziness in addition to her dehydration. She was given 2 L of IV fluid with subsequent improvement in her renal indices. She is noted to be on amiodarone and review of the records indicates that she had one episode of atrial fibrillation in 2004 during an adenosine thallium study. She denies any palpitations, does not follow with a potash flaker and all other EKGs seen in the system in both the historical records and this current version of [place], are negative for atrial fibrillation. She is awake, alert, oriented to place person self and time with some mild attention deficit and memory loss. She is thin but states she has not been eating well at home and notes that she is no longer able to take care of herself. She is now willing to go into a [facility] facility and except assistance. Her last 2D echocardiogram done 02/08/2018 showed normal EF of 60-65%, trace MR , mild AR, mild TR with pulmonary artery pressure 40.9 mmHg. 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 Trivial pulmonary valve regurgitation. Left heart catheterization done 05/31/2004 showed normal left main. LAD a medium sized vessel with tiny first diagonal. Proximal left anterior descending with eccentric 30-50% stenosis, tiny diagonal with severe disease in the ostium. Left circumflex is a small vessel giving rise to 3 relatively small to's marginal's. Second obtuse marginal has minimal disease at its ostium. The right coronary artery is a medium-sized dominant vessel with minimal luminal irregularities throughout its course. Ejection fraction was 55%. Past medical history Gastritis Diverticulosis Paroxysmal atrial fibrillation, last known episode 2004 which occurred while undergoing adenosine thallium study. Syncope Elevated transaminases GERD Constipation Hypertension Hypothyroidism Hyperlipidemia Anxiety Depression Cataracts Glaucoma Hiatal hernia Hemorrhoids Shingles Mild coronary artery disease Chronic kidney disease stage IV. Past surgical history EGD 06/02/2004, 03/07/2009, 05/19/2009, 11/02/2009, 07/24/10, 12/26/2016, Esophageal dilation with Botox injection Colonoscopy 07/24/10 ERCP with stent removal for CBD stones section Laparoscopic cholecystectomy Cardiac catheterization 05/31/2004 Flexible sigmoidoscopy 12/28/2009 Social history Rare alcohol use. Uses caffeine. Lifetime non-smoker No history of prescription or illicit drug abuse. Family history Both parents in their 70s with a history of coronary artery disease. . Function/Cognitive Trajectory: She remains alert and oriented, however is weak with some memory loss and shows some decrease in insight regarding medical decision making. She states that her daughter, Alice Peterson, would be her decision maker and requests that she be contacted for any decisions that need to be made. She is able to ambulate with a quad cane but is now starting to transition to a walker. She is generally weak and has suffered several falls. She has lived independently until this admission where she states she can no longer take care of herself and requires help. She is now considering [facility] facility admission for rehab further decisions as her course progresses. . Review of Systems Constitutional: Reports weight loss Eyes: Reports requires corrective lenses Gastrointestinal: Reports abdominal pain (Right lower quadrant) Musculoskeletal: Reports decreased muscle mass Neurologic: Reports dizziness, Reports memory loss Psychiatric: Reports anxiety, Reports depression PMFSH - History History Provided By: Patient, Family Member - Medical History Medical History: Medical History (Last Reviewed 03/03/18 @ 10:49 by Genny Marshall) Chronic kidney disease, stage IV (severe) Elevated cholesterol Fatty liver Glaucoma Hernia of abdominal cavity Hypertension - Surgical History Surgical History: Surgical History (Last Reviewed 03/02/18 @ 08:57 by Kb Diez) History of - Family History Family History: Family History (Last Reviewed 03/01/18 @ 14:22 by JOSEFINA Koenig) Other Family history non-contributory - Tobacco History Second Hand Smoke Exposure: No Smoking Status: Never smoker - Alcohol History How Often Do You Have a Drink Containing Alcohol: Never - Substance Use History Substance History: No History of Abuse - Travel History Recent Travel in the [place] Within the Last 8 Weeks: No Recent Travel Out of the Country Within the Last 8 Weeks: No - Immunization History Tetanus Immunization: Unsure Hx Influenza Vaccine This Season: Yes Medications and Allergies Active Medications: Active Medications Acetaminophen (Tylenol) 650 mg PO Q4H PRN PRN Reason: Temp > 100.4 Al Hydroxide/Mg Hydroxide (Milk Of Magnjose c Liq) 30 ml PO Q12H PRN PRN Reason: Mild Constipation Amiodarone HCl (Cordarone) 200 mg PO DAILY [facility] Last Admin: 03/03/18 08:57 Dose: 200 mg Bisacodyl (Dulcolax Supp) 10 mg RECTAL DAILY PRN PRN Reason: SEVERE CONSITIPATION Calcitriol (Rocaltrol) 0.25 mcg PO DAILY [facility] Last Admin: 03/03/18 08:57 Dose: 0.25 mcg Clonidine HCl (Catapres) 0.1 mg PO Q6H PRN PRN Reason: SBP>160, DBP>90 Last Admin: 03/02/18 19:08 Dose: 0.1 mg Hydralazine HCl (Apresoline) 50 mg PO TID [facility] Last Admin: 03/03/18 08:57 Dose: 50 mg Ceftriaxone Sodium 1,000 mg/ (Sodium Chloride) 100 mls @ 200 mls/hr IV.SIG Q24H [facility] Last Infusion: 03/02/18 17:34 Dose: Infused Sodium Chloride (Ns Inj) 1,000 mls @ 42 mls/hr IV.CONT .[id number] [facility] Stop: 03/04/18 07:18 Last Admin: 03/03/18 09:07 Dose: 42 mls/hr Lactulose (Lactulose Liq) 30 ml PO DAILY PRN PRN Reason: SEVERE CONSITIPATION Levothyroxine Sodium (Synthroid) 75 mcg PO DAILY@0600 [facility] Last Admin: 03/03/18 09:07 Dose: 75 mcg Megestrol Acetate (Megace) 40 mg PO BID [facility] Last Admin: 03/03/18 08:57 Dose: 40 mg Ondansetron HCl (Zofran Inj) 4 mg IV.PUSH Q6H PRN PRN Reason: NAUSEA OR VOMITING Pantoprazole Sodium (Protonix) 20 mg PO DAILY [facility] Last Admin: 03/03/18 08:57 Dose: 20 mg Senna/Docusate Sodium (Sarah-Colace) 1 tab PO BID [facility] Last Admin: 03/03/18 08:57 Dose: 1 tab Sennosides (Senokot) 17.2 mg PO Q12H PRN PRN Reason: Moderate Constipation Sertraline HCl (Zoloft) 50 mg PO DAILY [facility] Last Admin: 03/03/18 08:57 Dose: 50 mg Sodium Chloride (Ns Flush) 2 ml IV.FLUSH BID [facility] Last Admin: 03/03/18 10:24 Dose: 2 ml Sodium Chloride (Ns Flush) 2 ml IV.FLUSH PRN PRN PRN Reason: FLUSH AFTER USING IV ACCESS Temazepam (Restoril) 15 mg PO HS PRN PRN Reason: INSOMNIA Timolol Maleate (Timoptic 0.5% Drops) 1 drops EACH EYE BID [facility] Last Admin: 03/03/18 08:57 Dose: 1 drops Allergies Allergy/AdvReac Type Severity Reaction Status Date / Time No Known Allergies Allergy Verified 03/01/18 11:27 Home Medications Medication Instructions Recorded Confirmed Type Synthroid 75 mcg PO DAILY 02/08/18 03/01/18 History amiodarone 200 mg PO DAILY 02/08/18 03/01/18 History calcitriol 0.25 mcg PO DAILY 02/08/18 03/01/18 History hydralazine 50 mg PO TID 02/08/18 03/01/18 History omeprazole 20 mg PO DAILY NEB 02/08/18 03/01/18 History oxybutynin 5 mg PO BID 02/08/18 03/01/18 History sertraline 50 mg PO DAILY 02/08/18 03/01/18 History timolol 1 drp OPHTHALMIC (EYE) BID 02/08/18 03/01/18 History Advance Directives Living Will: Unknown Physical Exam Vital Signs: Vital Signs - 24 hr 03/02/18 11:59 03/02/18 12:59 03/02/18 13:59 Temperature 97.8 F Pulse Rate 42 L 42 L 42 L Respiratory Rate 14 13 12 Blood Pressure 138/58 L 158/57 H 139/54 L Pulse Oximetry 99 100 99 03/02/18 15:59 03/02/18 16:59 03/02/18 17:59 Temperature 97.1 F L Pulse Rate 46 L 50 L 48 L Respiratory Rate 19 32 H 18 Blood Pressure 165/83 H 179/62 H 172/85 H Pulse Oximetry 03/02/18 18:00 03/02/18 19:00 03/02/18 19:15 Temperature Pulse Rate 48 L 48 L Respiratory Rate 20 15 Blood Pressure 168/73 H Pulse Oximetry 98 100 03/02/18 20:00 03/02/18 21:00 03/02/18 22:00 Temperature 97.7 F Pulse Rate 46 L 48 L 44 L Respiratory Rate 15 14 15 Blood Pressure 149/55 H 177/86 H 154/67 H Pulse Oximetry 99 98 98 03/02/18 23:00 03/03/18 00:00 03/03/18 01:00 Temperature 99.5 F Pulse Rate 44 L 44 L 44 L Respiratory Rate 15 15 20 Blood Pressure 154/70 H 168/70 H 156/58 H Pulse Oximetry 98 99 98 03/03/18 02:00 03/03/18 02:59 03/03/18 03:00 Temperature Pulse Rate 46 L 44 L Respiratory Rate 21 17 Blood Pressure 170/56 H 152/57 H 152/57 H Pulse Oximetry 98 98 03/03/18 04:00 03/03/18 05:00 03/03/18 06:00 Temperature 98.3 F Pulse Rate 44 L 48 L 44 L Respiratory Rate 16 16 15 Blood Pressure 159/59 H 150/52 H 143/48 H Pulse Oximetry 98 98 98 03/03/18 07:00 03/03/18 08:00 03/03/18 08:03 Temperature Pulse Rate 44 L 46 L Respiratory Rate 18 26 H Blood Pressure Pulse Oximetry 99 100 03/03/18 08:59 03/03/18 09:00 03/03/18 09:59 Temperature Pulse Rate 44 L 42 L 44 L Respiratory Rate 23 18 15 Blood Pressure 141/49 H 143/67 H Pulse Oximetry 99 100 99 03/03/18 10:00 Temperature Pulse Rate 44 L Respiratory Rate 17 Blood Pressure Pulse Oximetry 98 I&O: Intake & Output 03/01/18 03/02/18 03/03/18 03/04/18 06:59 06:59 06:59 06:59 Intake Total 610 / 610 1100 / 1100 Output Total 300 / 300 Balance 310 / 310 1100 / 1100 Weight 97 lb 3.582 oz 100 lb 4.965 oz Physical Exam: CONSTITUTIONAL/GENERAL: This is a thin, elderly patient, in no apparent distress. TUBES/LINES/DRAINS: PIV SKIN: No jaundice, rashes, or lesions. Ecchymoses on upper extremities. Abrasions on lower extremities. Skin temperature appropriate. Not diaphoretic. HEAD: Atraumatic. Normocephalic. EYES: Pupils equal and round and reactive. Extraocular motions intact. No scleral icterus. No injection or drainage. Fundi not examined. ENT: Hearing grossly normal. Nose without bleeding or purulent drainage. Throat without visible erythema, exudates, masses, or lesions. NECK: Trachea midline. Supple, nontender. No palpable thyroid enlargement or nodularity. CARDIOVASCULAR: Regular rate and rhythm without murmurs, gallops, or rubs. No JVD. Peripheral pulses symmetric. RESPIRATORY/CHEST: Symmetric, unlabored respirations. Clear to auscultation. Breath sounds equal bilaterally. No wheezes, rales, or rhonchi. GASTROINTESTINAL: Abdomen soft, tender to palpation in RLQ, nondistended. No hepato-splenomegaly, or palpable masses. No guarding. Bowel sounds present. GENITOURINARY: Without palpable bladder distension. MUSCULOSKELETAL: Extremities without clubbing, cyanosis, or edema. No joint tenderness or effusion noted. No calf tenderness. No mottling or clubbing. LYMPHATICS: No palpable cervical or supraclavicular adenopathy. NEUROLOGICAL: Awake and alert. Motor and sensory grossly within normal limits. Follows commands. Moves all extremities. PSYCHIATRIC: Mild anxiety, depression, related to going into an SNF. no apparent hallucinations or other psychotic thought process. . Diagnostic Tests Laboratory: Laboratory Results - last 72 hr 03/01/18 03/01/18 03/01/18 12:02 12:08 12:08 CBC w Diff Auto diff final WBC 7.2 RBC 3.74 L Hgb 10.8 L Hct 33.6 L MCV 90.0 MCH 29.0 MCHC 32.2 RDW 15.3 Plt Count 253 MPV 9.5 Neut % (Auto) 62.0 Lymph % (Auto) 21.0 [place] % (Auto) 14.6 H Eos % (Auto) 2.1 Baso % (Auto) 0.3 Neut # (Auto) 4.4 Lymph # (Auto) 1.5 [place] # (Auto) 1.1 H Eos # (Auto) 0.2 Baso # (Auto) 0.0 WBC Differential . Differential Comment . Sodium 137 Potassium 4.5 Chloride 107 Carbon Dioxide 19.9 L Anion Gap 10 BUN 54 H Creatinine 4.10 H Estimated GFR 10 L POC Glucose Random Glucose 126 H Calcium 7.8 L Calcium Adj for Albumin Magnesium 2.3 Total Bilirubin 0.4 AST 62 H ALT 46 Alkaline Phosphatase 272 H Total Protein 6.8 Albumin 2.4 L TSH Greater than 100.000 H Ur Collection Type Urine Color Urine Clarity Urine pH Ur Specific [place] Urine Protein Urine Glucose (UA) Urine Ketones Urine Occult Blood Urine Nitrate Urine Bilirubin Urine Urobilinogen Ur Leukocyte Esterase Urine RBC Urine WBC Urine WBC Clumps Ur Squamous Epith Cells Amorphous Sediment Urine Bacteria Urine Mucus Urine Yeast Micro UA Comment Ur Microscopic Review Urine Culture Comments Urine Collection Time Stl C.difficile DNA Amp St C. diff Tox Epid 027 03/01/18 03/01/18 03/01/18 12:15 14:26 14:26 CBC w Diff WBC RBC Hgb Hct MCV MCH MCHC RDW Plt Count MPV Neut % (Auto) Lymph % (Auto) [place] % (Auto) Eos % (Auto) Baso % (Auto) Neut # (Auto) Lymph # (Auto) [place] # (Auto) Eos # (Auto) Baso # (Auto) WBC Differential Differential Comment Sodium Potassium Chloride Carbon Dioxide Anion Gap BUN Creatinine Estimated GFR POC Glucose 148 H Random Glucose Calcium Calcium Adj for Albumin Magnesium Total Bilirubin AST ALT Alkaline Phosphatase Total Protein Albumin TSH Ur Collection Type Clean catch Urine Color Yellow Urine Clarity Turbid H Urine pH 6.5 Ur Specific [place] 1.020 Urine Protein 300 or greater H Urine Glucose (UA) Negative Urine Ketones Negative Urine Occult Blood Trace Urine Nitrate Negative Urine Bilirubin Negative Urine Urobilinogen 1.0 Ur Leukocyte Esterase Trace H Urine RBC 4-15 H Urine WBC 6-8 H Urine WBC Clumps Occasional H Ur Squamous Epith Cells 6-10 H Amorphous Sediment Many H Urine Bacteria Many H Urine Mucus Moderate H Urine Yeast Few H Micro UA Comment Culture indicated Ur Microscopic Review Microscopic reviewed Urine Culture Comments Culture indicated Urine Collection Time 1426 Stl C.difficile DNA Amp Negative St C. diff Tox Epid 027 Negative 03/02/18 03/02/18 03/03/18 05:32 05:32 04:28 CBC w Diff Auto diff final Auto diff final WBC 7.4 8.2 RBC 3.55 L 3.36 L Hgb 10.3 L 9.7 L Hct 31.8 L 30.3 L MCV 89.5 90.0 MCH 29.1 28.9 MCHC 32.5 32.0 RDW 15.0 15.0 Plt Count 214 175 MPV 10.0 9.8 Neut % (Auto) 62.5 59.1 Lymph % (Auto) 19.7 22.4 [place] % (Auto) 13.4 H 13.0 H Eos % (Auto) 3.8 3.4 Baso % (Auto) 0.6 2.1 H Neut # (Auto) 4.6 4.8 Lymph # (Auto) 1.5 1.8 [place] # (Auto) 1.0 H 1.1 H Eos # (Auto) 0.3 0.3 Baso # (Auto) 0.0 0.2 WBC Differential . . Differential Comment . . Sodium 139 Potassium 4.1 Chloride 110 H Carbon Dioxide 18.1 L Anion Gap 11 BUN 50 H Creatinine 3.60 H Estimated GFR 12 L POC Glucose Random Glucose 96 Calcium 7.5 L Calcium Adj for Albumin Magnesium Total Bilirubin AST ALT Alkaline Phosphatase Total Protein Albumin TSH Ur Collection Type Urine Color Urine Clarity Urine pH Ur Specific [place] Urine Protein Urine Glucose (UA) Urine Ketones Urine Occult Blood Urine Nitrate Urine Bilirubin Urine Urobilinogen Ur Leukocyte Esterase Urine RBC Urine WBC Urine WBC Clumps Ur Squamous Epith Cells Amorphous Sediment Urine Bacteria Urine Mucus Urine Yeast Micro UA Comment Ur Microscopic Review Urine Culture Comments Urine Collection Time Stl C.difficile DNA Amp St C. diff Tox Epid 027 03/03/18 04:28 CBC w Diff WBC RBC Hgb Hct MCV MCH MCHC RDW Plt Count MPV Neut % (Auto) Lymph % (Auto) [place] % (Auto) Eos % (Auto) Baso % (Auto) Neut # (Auto) Lymph # (Auto) [place] # (Auto) Eos # (Auto) Baso # (Auto) WBC Differential Differential Comment Sodium 138 Potassium 4.2 Chloride 110 H Carbon Dioxide 16.1 L Anion Gap 12 BUN 53 H Creatinine 3.70 H Estimated GFR 12 L POC Glucose Random Glucose 88 Calcium 7.3 L* Calcium Adj for Albumin 9.1 Magnesium Total Bilirubin AST ALT Alkaline Phosphatase Total Protein Albumin 1.8 L D TSH Ur Collection Type Urine Color Urine Clarity Urine pH Ur Specific [place] Urine Protein Urine Glucose (UA) Urine Ketones Urine Occult Blood Urine Nitrate Urine Bilirubin Urine Urobilinogen Ur Leukocyte Esterase Urine RBC Urine WBC Urine WBC Clumps Ur Squamous Epith Cells Amorphous Sediment Urine Bacteria Urine Mucus Urine Yeast Micro UA Comment Ur Microscopic Review Urine Culture Comments Urine Collection Time Stl C.difficile DNA Amp St C. diff Tox Epid 027 Result Diagrams: 03/03/18 04:28 03/03/18 04:28 Microbiology: Microbiology 03/01/18 14:26 Urine Culture - Final Clean Catch Urine 50-100,000 cfu/mL mixed [place] (probable contaminants) Imaging: Cervical Spine CT 03/01/18 11:56 CONCLUSION: 1. No fracture is identified. 2. There is 4 mm of anterolisthesis of C4 on C5 of uncertain chronicity but may be related to the bilateral facet arthrosis. 3. Multilevel degenerative disc disease, as above, without spinal canal stenosis identified. Chest X-Ray 03/01/18 11:56 CONCLUSION: Mild bibasilar airspace opacity could represent atelectasis or airspace consolidation. Head CT 03/01/18 11:56 CONCLUSION: 1. Right posterior scalp soft tissue swelling. No fracture or acute intracranial abnormality is identified. 2. Chronic findings include generalized atrophy and chronic white matter changes. . Patient/Family Conference Issues Discussed: * Palliative care role, purpose, approach * Additional medical, psychosocial, and spiritual history * Patients general health, functional status, and cognitive changes in the months leading up to the current hospitalization * Patient/family understanding of the current medical problems * Patient/family understanding of prognosis * Patients goals of care as best understood from advance directives and/or conversations and/or values * Current medical treatment options and benefits/burdens of those options * Likely scenarios comparing ongoing aggressive care with a transition to comfort measures only * Questions answered to the best of my ability * Palliative care contact information provided Assessment and Plan - Disease Oriented Problem List (1) Multifocal pneumonia (2) Acute kidney injury superimposed on CKD (3) Physical deconditioning (4) Congestive heart failure (5) Contusion of scalp (6) Anemia Pertinent Non-Medical Issues: Psychosocial: She was born in [place] and worked in a [employer] until coming to the [facility] 50 years ago. She was and had one daughter. She is now . 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 Spiritual: Zoroastrianism derek. 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 Legal: Pending discussion with the daughter to evaluate advanced directive availability. Ethical issues impacting care: None noted. . Important Contacts: Daughter: Alice Walls) [phone] Other: Princeher Morris . Prognosis: Her prognosis is guarded. Her primary problem is failure to thrive and dehydration. She is unable to take care of herself independently any longer. She declined SNF placement at her last admission but states that she will accept SNF admission. She has not been eating and drinking nor taking her medications appropriately. She has been having more frequent falls recently. She has an extensive medical history to include gastrointestinal, renal and cardiovascular disorders. She is at elevated risk of continued complications, decline and readmissions. . Code Status: Full Code (By default, pending conversation with the daughter.) Plan: PLAN: Legal decision maker: At this point the patient is oriented but has poor insight. She states her daughter is her decision-maker. The daughter states that paperwork is available but it has not yet been presented. Would recommend shared decision making at this time. Goals: To be determined. CODE STATUS: FULL CODE by default pending conversation with the daughter. SYMPTOMS: * Pain: She complains of intermittent, sharp, crampy right lower quadrant pain. Tylenol is available, no doses have yet been taken. At this time she states the pain is controlled. * Dizziness: She is significantly bradycardic 40-50 which may be contributing to her resistant high blood pressure. She is on amiodarone since 2005 when she had one documented episode of atrial fibrillation while undergoing a thallium adenosine stress test. She is on no other blockade medications. She has not followed up with a potash flaker since that time and to her knowledge has had no recurrent episodes. Left atrial size on 2018 echo is well within normal range at 3.9 cm, suggesting that her 2005 arrhythmia was medication induced and may not be recurrent. Given her dizziness, frequent falls with head trauma, severely elevated TSH and fatty liver disease with chronically elevated transaminases would recommend evaluation by cardiology to determine need to continue amiodarone. Palliative care will continue to follow the patient during hospital course as condition evolves, to assist patient/decision-maker with understanding of their medical conditions, weighing benefits/burdens of treatment options, for clarification of goals of treatment. Additionally will assist with any symptoms of palliative concern. . Appreciation Thank you for the opportunity to participate in the care of Rachel Pompa. Attestation Attestation: To help prompt me to consider important information that might be impacting today's encounter and assessment, information from prior notes written by myself or my colleagues may have been "brought forward" into today's note. My signature on this note, however, is an attestation that I personally performed the exam, history, and/or decision-making noted today, and, unless otherwise indicated, the interactions with patient, family, and staff as well as the review of records all occurred today. I also attest that the listed assessment and stated plan reflect my best clinical judgment today based on the combination of historical information, prior notes, and today's exam/ interactions. When time spent is documented, it refers only to time spent today by the signer, or if indicated, combined time spent today by collaborating physician/nurse practitioner. .
[2018-03-04] MEDS: Senna/Docusate Sodium 8.6/50 MG Tablet PO SCH ×3 (00:33→20:57)
[2018-03-04 05:01] LABS: Potassium 4.4 meq/L (3.5-5.1)
[2018-03-04 05:03] LABS: Calcium 7.6 mg/dL (8.5-10.1)
[2018-03-04 05:04] LABS: Carbon Dioxide 16.4 meq/L (21.0-32.0)
[2018-03-04] MEDS ORDERED: Acetaminophen 325 MG Tablet PO ONE (05:14)
[2018-03-04] MEDS: Levothyroxine 75 MCG Tablet PO SCH (05:19)
[2018-03-04] MEDS: Pantoprazole Sodium 20 MG DR Tablet PO SCH (08:18)
[2018-03-04] MEDS: hydrALAZINE 50 MG Tablet PO SCH ×3 (08:18→19:03)
[2018-03-04] MEDS: Sertraline 50 MG Tablet PO SCH (08:18)
[2018-03-04] MEDS: Calcitriol 0.25 MCG Capsule PO SCH (08:18)
[2018-03-04] MEDS: Amiodarone 200 MG Tablet PO SCH (08:18)
--- NOTE | 2018-03-04 11:22 | P.DIET ---
Nutritional Evaluation Type of nutrition evaluation: initial Nutrition consult regarding: Diet Evaluation Nutrition screening: [facility] Screening comments: 03/01/18 [facility] Malnutrition Subjective Subjective Comments: Pt visited after breakfast today-po intake approximately 50%. Pt says, "I'm better today". Pt has not received a Mighty Shake per MD order at time of this visit and Dietary requested to send one to pt. Objective - Diagnosis Right-sided lower back pain x 2-weeks - Objective % IBW: 97 Body Weight Used for Calculations: Actual (Admission wt 44.1 kg) Energy Needs - Lower Range (kCal/kg): 30 Energy Needs - Upper Range (kCal/kg): 35 Lower Limit kCal/kg (kCals): 1,323 Upper Limit kCal/kg (kCals): 1,474 Lower Limit Protein Factor (Grams per Kg): 0.8 Upper Limit Protein Factor (Grams per Kg): 1.0 Lower Protein Needs (Protein): 34 Upper Protein Needs (Protein): 42 Dietitian Reviewed in Medical Record: Current diet, Curent medications, Intake & Output, Labs, Medical history Diet Order: Regular Oral Diet Intake Amount: Fair 50-75% Objective Comments: PMH includes: CKD Stage IV, Elevated Cholesterol, Fatty Liver, Glaucoma, Hernia of Abdominal cacity, HTN, Hypothyroidism, CAD, past h/o esophageal dilation w/ botox injection Labs include: BUN 56, K 4.4, Creatinine 3.5, estGFR 12, Glucose 91 LBM 03/03, -UOP 300ml Feeding - Current PO Supplement Current Supplement: Mighty Shake Current Frequency of Supplement: Three times a day Current kCals Provided by Supplement: 300 Current Protein Provided by Supplement: 9 Assessment Assessment: Pt is at nutritional risk r/t decreased appetite w/recent wt loss. Pt tolerating diet and PO intake has improved 50% and greater for meals. MD order for Mighty Shakes w/meals. Monitor renal labs-for worsening renal labs rec replacing Mighty Shakes TID w/Suplena supplement BID(= 425 kcal and 11g per serving). Dietitian following. Recommendations: 1. MD order for Mighty Shakes w/meals 2. Monitor renal labs-for worsening renal labs rec replacing Mighty Shakes TID w /Suplena supplement BID 3. Dietitian following Dietitian to Monitor: Lab values, Electrolytes, Renal labs, Supplement acceptance, Intake & Output, Diet tolerance, Weight change, PO Intake, Medical course
[2018-03-04] MEDS: Timolol 0.5% Drops 5 ML Bottle EACH EYE SCH ×2 (13:57→20:57)
[2018-03-04] MEDS: Dextrose 5%/NaCl 0.9% Inj 1,000 ML IV.CONT SCH ×2 (15:12→23:52)
--- NOTE | 2018-03-04 15:27 | P.PNIM ---
Subjective Interval history: The patient was resting comfortably in bed. She had no pain or shortness of breath. She was still feeling weak and dizzy at times. Discussed with nursing. Physical Exam Vital signs: Vital Signs 03/03/18 16:00 03/03/18 17:00 03/03/18 18:00 Temperature 97.9 F Pulse Rate 52 L 54 L 52 L Respiratory Rate 15 19 20 Blood Pressure Pulse Oximetry 98 98 98 03/03/18 19:00 03/03/18 20:00 03/03/18 21:00 Temperature 98.3 F Pulse Rate 52 L 50 L 50 L Respiratory Rate 18 17 19 Blood Pressure 176/61 H 172/62 H 166/55 H Pulse Oximetry 99 98 98 03/03/18 22:00 03/03/18 23:00 03/04/18 00:00 Temperature 98.3 F Pulse Rate 50 L 48 L 46 L Respiratory Rate 16 16 36 H Blood Pressure 166/57 H 147/56 H 152/58 H Pulse Oximetry 98 97 98 03/04/18 01:00 03/04/18 01:41 03/04/18 02:00 Temperature Pulse Rate 52 L 52 L 52 L Respiratory Rate 19 18 19 Blood Pressure 188/130 H 160/62 H 167/58 H Pulse Oximetry 98 98 97 03/04/18 03:00 03/04/18 04:00 03/04/18 05:00 Temperature Pulse Rate 52 L 50 L 48 L Respiratory Rate 15 18 15 Blood Pressure 171/29 H 153/63 H 199/73 H Pulse Oximetry 98 99 99 03/04/18 05:24 03/04/18 06:00 03/04/18 07:00 Temperature 98.6 F Pulse Rate 50 L 46 L 44 L Respiratory Rate 21 16 15 Blood Pressure 190/81 H 160/59 H 149/56 H Pulse Oximetry 100 97 97 03/04/18 07:53 03/04/18 08:00 03/04/18 08:04 Temperature Pulse Rate 46 L 46 L Respiratory Rate 13 12 Blood Pressure 196/63 H 194/70 H Pulse Oximetry 98 99 100 03/04/18 09:00 03/04/18 10:00 03/04/18 11:00 Temperature Pulse Rate 47 L 44 L 42 L Respiratory Rate 19 17 16 Blood Pressure 171/65 H 118/68 138/43 L Pulse Oximetry 99 99 100 03/04/18 12:00 Temperature Pulse Rate 42 L Respiratory Rate 13 Blood Pressure 161/58 H Pulse Oximetry 100 Intake & Output 03/03/18 03/04/18 03/04/18 18:59 06:59 18:59 Intake Total 410 / 410 100 / 100 Output Total 275 / 275 Balance 410 / 410 -175 / -175 Weight 42.8 kg Intake: IV 100 / 100 Rocephin Inj 1,000 MG In NS Inj 100 / 100 100 ML @ 200 mls/hr IV.SIG Q24H KATHERINE Rx#:[id number] Oral 410 / 410 Output: Urine 275 / 275 Other: # Voids 2 Date of Last Bowel Movement 03/02/18 03/03/18 03/03/18 # Bowel Movements 1 2 Narrative: GENERAL: No distress. HEENT: Head is normocephalic without any lesions or masses noted. Facial features are symmetric. Eyes: Extraocular muscles are intact. Conjunctivae were clear. NECK: Supple without any masses. Trachea midline no deviation. CARDIAC: Regular rhythm, regular rate. S1/S2 are heard. 2/6 ejection murmur, no gallops or rubs. LUNGS: Clear to auscultation bilaterally. No wheeze, rhonchi or rales. No use of accessory muscles on inspiration or expiration. ABDOMEN: Soft, nontender. Nondistended. Bowel sounds heard in all 4 quadrants. No organomegaly or masses. Negative rebound, negative guarding. EXTREMITIES: No edema, pulses are equal bilaterally. No cyanosis or clubbing, increased skin turgor, obvious signs of dehydration. NEUROLOGY: Mood and affect appear appropriate. Cranial nerves II through XII grossly intact. Moving all extremities, speech is clear Results - Labs CBC & Chem 7: 03/03/18 04:28 03/04/18 04:35 Laboratory Results - last 24 hr 03/04/18 04:35 Sodium 137 Potassium 4.4 Chloride 109 H Carbon Dioxide 16.4 L Anion Gap 12 BUN 56 H Creatinine 3.50 H Estimated GFR 12 L Random Glucose 91 Calcium 7.6 L Assessment and Plan - Assessment (1) Hypertensive emergency Code(s): I16.1 - Hypertensive emergency Status: Acute (2) Acute kidney injury superimposed on chronic kidney disease Code(s): N17.9 - Acute kidney failure, unspecified; N18.9 - Chronic kidney disease, unspecified Status: Acute (3) Diarrhea Code(s): R19.7 - Diarrhea, unspecified Status: Acute (4) Physical deconditioning Code(s): R53.81 - Other malaise Status: Acute (5) Contusion of scalp Code(s): S00.03XA - Contusion of scalp, initial encounter Status: Acute (6) At high risk for falls Code(s): Z91.81 - History of falling Status: Acute (7) At risk for medication noncompliance Code(s): Z91.89 - Other specified personal risk factors, not elsewhere classified Status: Acute (8) Urinary tract infection Code(s): N39.0 - Urinary tract infection, site not specified Status: Acute - Plan Hypertensive emergency, improved -Chest x-ray showing possible atelectasis versus airspace consolidation. No signs of acute pulmonary edema secondary to hypertensive emergency. Patient is afebrile, no leukocytosis, continue monitor for infection process. -Cardene drip was started in the ICU, has been discontinued, no longer requiring. -Home medications were continued -Clonidine as needed Closed head injury secondary to fall at home -CT scan did not indicate any acute abnormality -Continue frequent neuro check for postconcussion syndrome Acute renal failure superimposed on chronic kidney disease stage IV, -Secondary to poor p.o. intake, loose stools and continued diuretic use -Status post IV hydration for 2 L of fluid, will give at least 1 more liter of fluid -Continue monitor renal function -Avoid nephrotoxins Failure to thrive, malnutrition -Palliative care consultation appreciated. -Case management consultation for fdc facility placement -Dietitian consultation -PT/OT evaluation -Continue Megace for appetite stimulant -Dietary supplement with each meal Bradycardia On amiodarone. -d/c amio and monitor on telemetry. Hypothyroidism -TSH greater than 100 -Levothyroxine increased. DVT prevention -Sequential compression devices, (5) Contusion of scalp Qualifiers: Encounter type: initial encounter Qualified Code(s): S00.03XA - Contusion of scalp, initial encounter
--- NOTE | 2018-03-04 16:50 | P.PNPAL ---
Reason for Visit Reason for visit: a. To assist with evaluation and management of symptoms including: Weakness, dizziness b. To assist medical decision maker(s) with: better understanding of current medical conditions; weighing benefits/burdens of medical treatment options; making medical treatment decisions. Subjective Subjective/Interval History: This is a very pleasant 87-year-old [facility] female with an extensive past medical history of gastrointestinal disorders, hypothyroidism, CAD, CKD and frequent falls who came to the ER for evaluation of altered mental status. Patient reports waking up in the middle of the night and just not feeling right. She states that she is unsteady, dizzy and fell during the night, her head. She denied any neck pain or loss of consciousness did have some mild to moderate difficulty with recall. She had had a recent hospitalization positive for C. difficile and was discharged home with home health. She had refused rehab. The daughter reports using daily pillboxes which the patient ignores and states that she gets her own medications out of the bottles. She has an unstable gait and ambulates with a quad cane or a walker. Patient seen today for follow-up of symptom management of weakness and dizziness. She is sleepy, arousable, dozes off easily. She states she is still dizzy when arising from chair or bed. She states the dizziness is intermittent, mild- moderate, occurs with position changes, no other exacerbating or relieving factors. She remains weak, receiving physical therapy. They states she still requires assistance with transfers out of bed plus gait training and has an elevated fall risk especially with turns as she allows the walker to get out in front of her. They are recommending short-term rehabilitation. She had previously lived alone and had been suffering recurrent falls and having difficulty managing ADLs plan for short-term rehab with possible long-term placement. . Family/Friend Interactions: No return call from daughter yesterday. Left additional voicemail requesting call back. . Objective Vital Signs: Vital Signs 03/03/18 17:00 03/03/18 18:00 03/03/18 19:00 Temperature Pulse Rate 54 L 52 L 52 L Respiratory Rate 19 20 18 Blood Pressure 176/61 H Pulse Oximetry 98 98 99 03/03/18 20:00 03/03/18 21:00 03/03/18 22:00 Temperature 98.3 F Pulse Rate 50 L 50 L 50 L Respiratory Rate 17 19 16 Blood Pressure 172/62 H 166/55 H 166/57 H Pulse Oximetry 98 98 98 03/03/18 23:00 03/04/18 00:00 03/04/18 01:00 Temperature 98.3 F Pulse Rate 48 L 46 L 52 L Respiratory Rate 16 36 H 19 Blood Pressure 147/56 H 152/58 H 188/130 H Pulse Oximetry 97 98 98 03/04/18 01:41 03/04/18 02:00 03/04/18 03:00 Temperature Pulse Rate 52 L 52 L 52 L Respiratory Rate 18 19 15 Blood Pressure 160/62 H 167/58 H 171/29 H Pulse Oximetry 98 97 98 03/04/18 04:00 03/04/18 05:00 03/04/18 05:24 Temperature Pulse Rate 50 L 48 L 50 L Respiratory Rate 18 15 21 Blood Pressure 153/63 H 199/73 H 190/81 H Pulse Oximetry 99 99 100 03/04/18 06:00 03/04/18 07:00 03/04/18 07:53 Temperature 98.6 F Pulse Rate 46 L 44 L Respiratory Rate 16 15 Blood Pressure 160/59 H 149/56 H Pulse Oximetry 97 97 98 03/04/18 08:00 03/04/18 08:04 03/04/18 09:00 Temperature Pulse Rate 46 L 46 L 47 L Respiratory Rate 13 12 19 Blood Pressure 196/63 H 194/70 H 171/65 H Pulse Oximetry 99 100 99 03/04/18 10:00 03/04/18 11:00 03/04/18 12:00 Temperature Pulse Rate 44 L 42 L 42 L Respiratory Rate 17 16 13 Blood Pressure 118/68 138/43 L 161/58 H Pulse Oximetry 99 100 100 03/04/18 13:00 03/04/18 14:00 03/04/18 15:00 Temperature Pulse Rate 44 L 44 L 44 L Respiratory Rate 19 15 15 Blood Pressure 148/62 H 136/52 L 140/51 L Pulse Oximetry 99 99 99 Intake & Output 03/03/18 03/04/18 03/04/18 18:59 06:59 18:59 Intake Total 410 / 410 100 / 100 Output Total 275 / 275 Balance 410 / 410 -175 / -175 Weight 94 lb 5.725 oz Intake: IV 100 / 100 Rocephin Inj 1,000 MG In NS Inj 100 / 100 100 ML @ 200 mls/hr IV.SIG Q24H KATHERINE Rx#:[id number] Oral 410 / 410 Output: Urine 275 / 275 Other: # Voids 2 Date of Last Bowel Movement 03/02/18 03/03/18 03/04/18 # Bowel Movements 1 2 Physical Exam: CONSTITUTIONAL/GENERAL: This is a thin, elderly patient, in no apparent distress. TUBES/LINES/DRAINS: PIV CARDIOVASCULAR: Regular rate and rhythm without murmurs, gallops, or rubs. No JVD. Peripheral pulses symmetric. RESPIRATORY/CHEST: Symmetric, unlabored respirations. Clear to auscultation. Breath sounds equal bilaterally. No wheezes, rales, or rhonchi. GASTROINTESTINAL: Abdomen soft, nontender to palpation, nondistended. No hepato- splenomegaly, or palpable masses. No guarding. Bowel sounds present. GENITOURINARY: Without palpable bladder distension. MUSCULOSKELETAL: Extremities without clubbing, cyanosis, or edema. No joint tenderness or effusion noted. No calf tenderness. No mottling or clubbing. NEUROLOGICAL: Sleepy, arousable. Motor and sensory grossly within normal limits. Follows commands. Moves all extremities. PSYCHIATRIC: No anxiety, depression, at this visit, however had discussed earlier with the nurse some depression related to going into an SNF. no apparent hallucinations or other psychotic thought process. . Diagnostic Tests Laboratory: Laboratory Results - last 72 hr 03/01/18 03/02/18 03/02/18 14:26 05:32 05:32 CBC w Diff Auto diff final WBC 7.4 RBC 3.55 L Hgb 10.3 L Hct 31.8 L MCV 89.5 MCH 29.1 MCHC 32.5 RDW 15.0 Plt Count 214 MPV 10.0 Neut % (Auto) 62.5 Lymph % (Auto) 19.7 Hudson % (Auto) 13.4 H Eos % (Auto) 3.8 Baso % (Auto) 0.6 Neut # (Auto) 4.6 Lymph # (Auto) 1.5 Hudson # (Auto) 1.0 H Eos # (Auto) 0.3 Baso # (Auto) 0.0 WBC Differential . Differential Comment . Sodium 139 Potassium 4.1 Chloride 110 H Carbon Dioxide 18.1 L Anion Gap 11 BUN 50 H Creatinine 3.60 H Estimated GFR 12 L Random Glucose 96 Calcium 7.5 L Calcium Adj for Albumin Albumin Stl C.difficile DNA Amp Negative St C. diff Tox Epid 027 Negative 03/03/18 03/03/18 03/04/18 04:28 04:28 04:35 CBC w Diff Auto diff final WBC 8.2 RBC 3.36 L Hgb 9.7 L Hct 30.3 L MCV 90.0 MCH 28.9 MCHC 32.0 RDW 15.0 Plt Count 175 MPV 9.8 Neut % (Auto) 59.1 Lymph % (Auto) 22.4 Hudson % (Auto) 13.0 H Eos % (Auto) 3.4 Baso % (Auto) 2.1 H Neut # (Auto) 4.8 Lymph # (Auto) 1.8 Hudson # (Auto) 1.1 H Eos # (Auto) 0.3 Baso # (Auto) 0.2 WBC Differential . Differential Comment . Sodium 138 137 Potassium 4.2 4.4 Chloride 110 H 109 H Carbon Dioxide 16.1 L 16.4 L Anion Gap 12 12 BUN 53 H 56 H Creatinine 3.70 H 3.50 H Estimated GFR 12 L 12 L Random Glucose 88 91 Calcium 7.3 L* 7.6 L Calcium Adj for Albumin 9.1 Albumin 1.8 L D Stl C.difficile DNA Amp St C. diff Tox Epid 027 Result Diagrams: 03/03/18 04:28 03/04/18 04:35 Microbiology: Microbiology 03/01/18 14:26 Urine Culture - Final Clean Catch Urine 50-100,000 cfu/mL mixed shelby (probable contaminants) Imaging: ITS Impressions Cervical Spine CT 03/01/18 11:56 CONCLUSION: 1. No fracture is identified. 2. There is 4 mm of anterolisthesis of C4 on C5 of uncertain chronicity but may be related to the bilateral facet arthrosis. 3. Multilevel degenerative disc disease, as above, without spinal canal stenosis identified. Chest X-Ray 03/01/18 11:56 CONCLUSION: Mild bibasilar airspace opacity could represent atelectasis or airspace consolidation. Head CT 03/01/18 11:56 CONCLUSION: 1. Right posterior scalp soft tissue swelling. No fracture or acute intracranial abnormality is identified. 2. Chronic findings include generalized atrophy and chronic white matter changes. . 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 She was and had one daughter. She is now . 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 Spiritual: Cheondoism derek. Declines receiver. Legal: Pending discussion with the daughter to evaluate advanced directive availability. Ethical issues impacting care: None noted. . Important Contacts: Daughter: Alice Walls) Other: Luther Morris . Prognosis: Her prognosis is guarded. Her primary problem is failure to thrive and dehydration. She is unable to take care of herself independently any longer. She declined SNF placement at her last admission but states that she will accept SNF admission. She has not been eating and drinking nor taking her medications appropriately. She has been having more frequent falls recently. She has an extensive medical history to include gastrointestinal, renal and cardiovascular disorders. She is at elevated risk of continued complications, decline and readmissions. . Code Status: Full Code (By default, pending conversation with the daughter.) Plan: PLAN: Legal decision maker: At this point the patient is oriented but has poor insight. She states her daughter is her decision-maker. The daughter states that paperwork is available but it has not yet been presented. Would recommend shared decision making at this time. Goals: To be determined. CODE STATUS: FULL CODE by default pending conversation with the daughter. SYMPTOMS: * Weakness: She is weak and is recommended to have rehab by physical therapy. She requires assistance from bed to chair, has an unstable gait and is at elevated risk for falls. Patient is agreeable to go to rehab at this time however is not happy about the possibility that she will not be able to live alone again. She has fallen several times recently. * Dizziness: She is significantly bradycardic 40-50 which may be contributing to her resistant high blood pressure. She is on amiodarone since 2004 when she had one documented episode of atrial fibrillation while undergoing a thallium adenosine stress test. She is on no other blockade medications. She has not followed up with a foundry hand since that time and to her knowledge has had no recurrent episodes. Left atrial size on 2018 echo is well within normal range at 3.9 cm, suggesting that her 2005 arrhythmia was medication induced and may not be recurrent. Given her dizziness, frequent falls with head trauma, severely elevated TSH and fatty liver disease with chronically elevated transaminases, and amiodarone may be contributing to her symptoms. Discussed with Dr. Bustamante who discontinued amiodarone after review of her records. Due to the very long half-life of amiodarone (average 58 days) it may be some time before the effectiveness of that change can be evaluated. Palliative care will continue to follow the patient during hospital course as condition evolves, to assist patient/decision-maker with understanding of their medical conditions, weighing benefits/burdens of treatment options, for clarification of goals of treatment. Additionally will assist with any symptoms of palliative concern. . Attestation Attestation: To help prompt me to consider important information that might be impacting today's encounter and assessment, information from prior notes written by myself or my colleagues may have been "brought forward" into today's note. My signature on this note, however, is an attestation that I personally performed the exam, history, and/or decision-making noted today, and, unless otherwise indicated, the interactions with patient, family, and staff as well as the review of records all occurred today. I also attest that the listed assessment and stated plan reflect my best clinical judgment today based on the combination of historical information, prior notes, and today's exam/ interactions. When time spent is documented, it refers only to time spent today by the signer, or if indicated, combined time spent today by collaborating physician/nurse practitioner. .
[2018-03-05 05:16] LABS: Baso % (Auto) 0.4 % (0.0-2.0); Eos # (Auto) 0.3 th/mm3 (0.0-0.4); Eos % (Auto) 3.2 % (0.0-4.0); Hematocrit 31.1 % (35.0-46.0); Hemoglobin 9.9 gm/dL (11.6-15.3); Lymph # (Auto) 1.6 th/mm3 (1.0-4.8); Lymph % (Auto) 17.5 % (9.0-44.0); Mean Corpuscular Hemoglobin 28.7 pg (27.0-34.0); Mean Corpuscular Volume 89.9 fL (80.0-100.0); Mean Platelet Volume 10.1 fL (7.0-11.0); Mono # (Auto) 1.3 th/mm3 (0.0-0.9); Mono % (Auto) 14.6 % (0.0-8.0); Neut # (Auto) 5.8 th/mm3 (1.8-7.7); Neut % (Auto) 64.3 % (16.0-70.0); Platelet Count 214 th/mm3 (150-450); Red Blood Count 3.46 mil/mm3 (4.00-5.30); Red Cell Distribution Width 15.2 % (11.6-17.2)
[2018-03-05 06:57] LABS: Potassium 4.2 meq/L (3.5-5.1)
[2018-03-05 07:06] LABS: Calcium 7.9 mg/dL (8.5-10.1)
[2018-03-05 07:07] LABS: Carbon Dioxide 15.7 meq/L (21.0-32.0)
[2018-03-05 07:11] LABS: Phosphorus 5.2 mg/dL (2.5-4.9)
[2018-03-05] MEDS: Levothyroxine 88 MCG Tablet PO SCH (07:42)
[2018-03-05] MEDS: Pantoprazole Sodium 20 MG DR Tablet PO SCH (08:20)
[2018-03-05] MEDS: Sertraline 50 MG Tablet PO SCH (08:20)
[2018-03-05] MEDS: Calcitriol 0.25 MCG Capsule PO SCH (08:20)
[2018-03-05] MEDS: hydrALAZINE 50 MG Tablet PO SCH ×2 (08:20→12:21)
[2018-03-05] MEDS: Timolol 0.5% Drops 5 ML Bottle EACH EYE SCH ×2 (08:20→20:44)
[2018-03-05] MEDS: Senna/Docusate Sodium 8.6/50 MG Tablet PO SCH ×2 (08:21→20:44)
--- NOTE | 2018-03-05 10:28 | P.PNIM ---
Subjective Interval history: The patient was resting comfortably in bed. She denied any acute complaints. She denied any dizziness. Discussed with nursing. Physical Exam Vital signs: Vital Signs 03/04/18 11:00 03/04/18 12:00 03/04/18 13:00 Temperature Pulse Rate 42 L 42 L 44 L Respiratory Rate 16 13 19 Blood Pressure 138/43 L 161/58 H 148/62 H Pulse Oximetry 100 100 99 03/04/18 14:00 03/04/18 15:00 03/04/18 16:00 Temperature Pulse Rate 44 L 44 L 44 L Respiratory Rate 15 15 16 Blood Pressure 136/52 L 140/51 L 146/59 H Pulse Oximetry 99 99 99 03/04/18 17:00 03/04/18 18:00 03/04/18 19:00 Temperature Pulse Rate 46 L 46 L 46 L Respiratory Rate 13 19 17 Blood Pressure 166/58 H 130/58 L 153/57 H Pulse Oximetry 98 98 03/04/18 20:00 03/04/18 21:00 03/04/18 22:00 Temperature Pulse Rate 50 L 48 L 48 L Respiratory Rate 22 18 19 Blood Pressure 156/62 H 153/59 H 159/60 H Pulse Oximetry 98 03/04/18 23:00 03/05/18 00:00 03/05/18 01:00 Temperature Pulse Rate 52 L 46 L 46 L Respiratory Rate 18 18 34 H Blood Pressure 167/71 H 142/52 H 160/57 H Pulse Oximetry 03/05/18 02:00 03/05/18 03:00 03/05/18 04:00 Temperature Pulse Rate 52 L 54 L 48 L Respiratory Rate 22 25 H 18 Blood Pressure 154/67 H 184/87 H 164/37 H Pulse Oximetry 03/05/18 05:00 03/05/18 06:00 03/05/18 08:00 Temperature 98.5 F Pulse Rate 50 L 46 L 48 L Respiratory Rate 17 16 17 Blood Pressure 183/64 H 151/55 H 168/62 H Pulse Oximetry Intake & Output 03/04/18 03/05/18 03/05/18 18:59 06:59 18:59 Intake Total 600 / 600 1000 / 1000 Output Total 100 / 100 460 / 460 Balance 500 / 500 540 / 540 Intake: IV 1000 / 1000 D5W/Normal Saline Inj 1,000 ML 1000 / 1000 @ 125 mls/hr IV.CONT .Q8H [facility] Rx#:[id number] Oral 600 / 600 Output: Urine 100 / 100 460 / 460 Other: # Voids 2 # Urine Diapers 2 Date of Last Bowel Movement 03/04/18 03/04/18 # Bowel Movements 2 2 Narrative: GENERAL: No distress. HEENT: Head is normocephalic without any lesions or masses noted. Facial features are symmetric. Eyes: Extraocular muscles are intact. Conjunctivae were clear. NECK: Supple without any masses. Trachea midline no deviation. CARDIAC: Regular rhythm, regular rate. S1/S2 are heard. 2/6 ejection murmur, no gallops or rubs. LUNGS: Clear to auscultation bilaterally. No wheeze, rhonchi or rales. No use of accessory muscles on inspiration or expiration. ABDOMEN: Soft, nontender. Nondistended. Bowel sounds heard in all 4 quadrants. No organomegaly or masses. Negative rebound, negative guarding. EXTREMITIES: No edema, pulses are equal bilaterally. No cyanosis or clubbing, increased skin turgor, obvious signs of dehydration. NEUROLOGY: Mood and affect appear appropriate. Cranial nerves II through XII grossly intact. Moving all extremities, speech is clear Results - Labs CBC & Chem 7: 03/05/18 04:40 03/05/18 04:40 Laboratory Results - last 24 hr 03/05/18 03/05/18 04:40 04:40 CBC w Diff Auto diff final WBC 9.0 RBC 3.46 L Hgb 9.9 L Hct 31.1 L MCV 89.9 MCH 28.7 MCHC 32.0 RDW 15.2 Plt Count 214 MPV 10.1 Neut % (Auto) 64.3 Lymph % (Auto) 17.5 Churchill % (Auto) 14.6 H Eos % (Auto) 3.2 Baso % (Auto) 0.4 Neut # (Auto) 5.8 Lymph # (Auto) 1.6 Churchill # (Auto) 1.3 H Eos # (Auto) 0.3 Baso # (Auto) 0.0 WBC Differential . Differential Comment . Sodium 137 Potassium 4.2 Chloride 109 H Carbon Dioxide 15.7 L Anion Gap 12 BUN 60 H Creatinine 3.70 H Estimated GFR 12 L Random Glucose 102 Calcium 7.9 L Phosphorus 5.2 H Magnesium 2.0 Assessment and Plan - Assessment (1) Hypertensive emergency Code(s): I16.1 - Hypertensive emergency Status: Acute (2) Acute kidney injury superimposed on chronic kidney disease Code(s): N17.9 - Acute kidney failure, unspecified; N18.9 - Chronic kidney disease, unspecified Status: Acute (3) Diarrhea Code(s): R19.7 - Diarrhea, unspecified Status: Acute (4) Physical deconditioning Code(s): R53.81 - Other malaise Status: Acute (5) Contusion of scalp Code(s): S00.03XA - Contusion of scalp, initial encounter Status: Acute (6) At high risk for falls Code(s): Z91.81 - History of falling Status: Acute (7) At risk for medication noncompliance Code(s): Z91.89 - Other specified personal risk factors, not elsewhere classified Status: Acute (8) Urinary tract infection Code(s): N39.0 - Urinary tract infection, site not specified Status: Acute - Plan Hypertensive emergency, improved -Chest x-ray showing possible atelectasis versus airspace consolidation. No signs of acute pulmonary edema secondary to hypertensive emergency. Patient is afebrile, no leukocytosis, continue monitor for infection process. -Cardene drip was started in the ICU, has been discontinued, no longer requiring. -Home medications were continued -Clonidine as needed Closed head injury secondary to fall at home -CT scan did not indicate any acute abnormality -Continue frequent neuro check for postconcussion syndrome Acute renal failure superimposed on chronic kidney disease stage IV, -Secondary to poor p.o. intake, loose stools and continued diuretic use -Status post IV hydration for 2 L of fluid, will give at least 1 more liter of fluid -Continue monitor renal function -Avoid nephrotoxins -repeat ua, calculate FENA, check renal US. -nephrology consult requested. Failure to thrive, malnutrition -Palliative care consultation appreciated. -Case management consultation for assisted facility placement -Dietitian consultation -PT/OT evaluation -Continue Megace for appetite stimulant -Dietary supplement with each meal Bradycardia On amiodarone. -d/c amio and monitor on telemetry. Hypothyroidism -TSH greater than 100 -Levothyroxine increased. DVT prevention -Sequential compression devices, (5) Contusion of scalp Qualifiers: Encounter type: initial encounter Qualified Code(s): S00.03XA - Contusion of scalp, initial encounter
[2018-03-05] MEDS ORDERED: Dextrose 5%/NaCl 0.9% Inj 1,000 ML IV.CONT SCH (11:00)
--- NOTE | 2018-03-05 11:39 | US ---
EXAM DATE: 03/05/2018 11:34 AM EST AGE/SEX: 87 years / Female INDICATIONS: Increased Bun and Creatinine. CLINICAL DATA: This is the patient's subsequent encounter. Patient reports that signs and symptoms h ave been present for 1 day and indicates a pain score of 0/10. MEDICAL/SURGICAL HISTORY: . . Elevated cholesterol. Fatty liver. Glaucoma. Hernia of abdominal cavity. Hypertension. Kidney problem. section. COMPARISON: [facility], US ABDOMEN COMPLETE, 12/02/2017. . MEASUREMENTS: Right Kidney:__8.6 x 4.1 x 4.9 cm Left Kidney:__8.4 x 4.3 x 5.4 cm FINDINGS: Right Kidney: 2 cyst in the right kidney largest 1.2 cm upper pole. Kidney is small and echogenic. Left Kidney: Small echogenic left kidney with 1.6 similar cyst midpole. Bladder: Within normal limits given the degree of distension. Other: Moderate ascites CONCLUSION: 1. Small echogenic kidneys consistent with chronic renal disease 2. Moderate ascites Electronically signed by: Levy Menjivar MD 03/05/2018 11:38 AM EST
[2018-03-05] MEDS: amLODIPine 5 MG Tablet PO SCH (14:36)
[2018-03-05 16:03] LABS: Bilirubin,Urine Negative (Negative); Clarity,Urine Clear (Clear); Color,Urine Yellow (Yellw/Straw); Glucose,Urine (UA) Negative (Negative); Leukocyte Esterase,Urine Negative (Negative); Nitrite,Urine Negative (Negative); Urobilinogen,Urine 0.2 mg/dL (Less than 2)
[2018-03-05 16:14] LABS: Squamous Epithelial Cell,Urine 0-5 /hpf (0-5); WBC,Urine 0-5 /hpf (0-5)
[2018-03-05 16:15] LABS: Bacteria,Urine Few /hpf; Mucus,Urine Rare /lpf (Occasional)
--- NOTE | 2018-03-05 17:17 | P.CONNP ---
<JennyglennAnia lyon - Last Filed: 03/05/18 16:50> History of Present Illness Service: Nephrology Consult date: 03/05/18 Requesting Physician: Jose Bustamante Reason for Consult: Acute on chronic kidney disease Primary Care Provider: Allan Wheeler Chief Complaint: Unable to care for self History of Present Illness: Patient is a 87-year-old female with known history of hypertension, hyperlipidemia, arthritis, hypothyroidism, and chronic kidney disease stage IV. Presented to hospital for for evaluation after a fall. Has had poor appetite and has not been eating or drinking fluid. Admitted on the . Patient did have recent hospitalization from 02/07/18 until 02/11/18. During the hospitalization patient was unable to care for herself at that time. It was recommended that the patient be discharged to rehab facility however patient did not want to go there and was discharged home with home health care. Nephrology is consulted for acute on chronic kidney disease. Renal ultrasound with no acute findings. Creatinine at 3.70 and oliguric. Patient was seen in office at the end of December and her creatinine was elevated at that time at 2.99, and HCTZ was discontinued. Currently receiving IVF's. Denies any shortness of breath, chest pain, or nausea. Vomited earlier today. Review of Systems All other systems reviewed negative except as stated in HPI PMFSH - History History Provided By: Patient, Family Member - Medical History Medical History: Medical History (Last Reviewed 03/04/18 @ 10:13 by Jose Alexander) Chronic kidney disease, stage IV (severe) Elevated cholesterol Fatty liver Glaucoma Hernia of abdominal cavity Hypertension - Surgical History Surgical History: Surgical History (Last Reviewed 03/04/18 @ 10:13 by Jose Alexander) History of - Family History Family History: Family History (Last Reviewed 03/01/18 @ 14:22 by JOSEFINA Koenig) Other Family history non-contributory - Tobacco History Second Hand Smoke Exposure: No Smoking Status: Never smoker - Alcohol History How Often Do You Have a Drink Containing Alcohol: Never - Substance Use History Substance History: No History of Abuse - Travel History Recent Travel in the [place] Within the Last 8 Weeks: No Recent Travel Out of the Country Within the Last 8 Weeks: No - Immunization History Tetanus Immunization: Unsure Hx Influenza Vaccine This Season: Yes Medications and Allergies Allergies Allergy/AdvReac Type Severity Reaction Status Date / Time No Known Allergies Allergy Verified 03/01/18 11:27 Home Medications Medication Instructions Recorded Confirmed Type Synthroid 75 mcg PO DAILY 02/08/18 03/01/18 History amiodarone 200 mg PO DAILY 02/08/18 03/01/18 History calcitriol 0.25 mcg PO DAILY 02/08/18 03/01/18 History hydralazine 50 mg PO TID 02/08/18 03/01/18 History omeprazole 20 mg PO DAILY NEB 02/08/18 03/01/18 History oxybutynin 5 mg PO BID 02/08/18 03/01/18 History sertraline 50 mg PO DAILY 02/08/18 03/01/18 History timolol 1 drp OPHTHALMIC (EYE) BID 02/08/18 03/01/18 History Active Medications: Active Medications Acetaminophen (Tylenol) 650 mg PO Q4H PRN PRN Reason: Temp > 100.4 Al Hydroxide/Mg Hydroxide (Milk Of Magnesia Liq) 30 ml PO Q12H PRN PRN Reason: Mild Constipation Amlodipine Besylate (Norvasc) 5 mg PO DAILY [facility] Last Admin: 03/05/18 14:36 Dose: 5 mg Bisacodyl (Dulcolax Supp) 10 mg RECTAL DAILY PRN PRN Reason: SEVERE CONSITIPATION Calcitriol (Rocaltrol) 0.25 mcg PO DAILY [facility] Last Admin: 03/05/18 08:20 Dose: 0.25 mcg Clonidine HCl (Catapres) 0.1 mg PO Q6H PRN PRN Reason: SBP>160, DBP>90 Last Admin: 03/05/18 11:04 Dose: 0.1 mg Hydralazine HCl (Apresoline) 75 mg PO TID [facility] Dextrose/Sodium Chloride (D5w/Normal Saline Inj) 1,000 mls @ 100 mls/hr IV.CONT .Q10H [facility] Stop: 03/06/18 06:59 Last Admin: 03/05/18 11:05 Dose: 100 mls/hr Lactulose (Lactulose Liq) 30 ml PO DAILY PRN PRN Reason: SEVERE CONSITIPATION Levothyroxine Sodium (Synthroid) 88 mcg PO DAILY@0600 [facility] Last Admin: 03/05/18 07:42 Dose: 88 mcg Megestrol Acetate (Megace) 40 mg PO BID [facility] Last Admin: 03/05/18 08:22 Dose: 40 mg Ondansetron HCl (Zofran Inj) 4 mg IV.PUSH Q6H PRN PRN Reason: NAUSEA OR VOMITING Last Admin: 03/05/18 08:31 Dose: 4 mg Pantoprazole Sodium (Protonix) 20 mg PO DAILY [facility] Last Admin: 03/05/18 08:20 Dose: 20 mg Senna/Docusate Sodium (Sarah-Colace) 1 tab PO BID [facility] Last Admin: 03/05/18 08:21 Dose: Not Given Sennosides (Senokot) 17.2 mg PO Q12H PRN PRN Reason: Moderate Constipation Sertraline HCl (Zoloft) 50 mg PO DAILY [facility] Last Admin: 03/05/18 08:20 Dose: 50 mg Sodium Chloride (Ns Flush) 2 ml IV.FLUSH BID [facility] Last Admin: 03/05/18 08:21 Dose: 2 ml Sodium Chloride (Ns Flush) 2 ml IV.FLUSH PRN PRN PRN Reason: FLUSH AFTER USING IV ACCESS Temazepam (Restoril) 15 mg PO HS PRN PRN Reason: INSOMNIA Timolol Maleate (Timoptic 0.5% Drops) 1 drops EACH EYE BID [facility] Last Admin: 03/05/18 08:20 Dose: 1 drops Exam Vital signs: Vital Signs 03/04/18 17:00 03/04/18 18:00 03/04/18 19:00 Temperature Pulse Rate 46 L 46 L 46 L Respiratory Rate 13 19 17 Blood Pressure 166/58 H 130/58 L 153/57 H Pulse Oximetry 98 98 03/04/18 20:00 03/04/18 21:00 03/04/18 22:00 Temperature Pulse Rate 50 L 48 L 48 L Respiratory Rate 22 18 19 Blood Pressure 156/62 H 153/59 H 159/60 H Pulse Oximetry 98 03/04/18 23:00 03/05/18 00:00 03/05/18 01:00 Temperature Pulse Rate 52 L 46 L 46 L Respiratory Rate 18 18 34 H Blood Pressure 167/71 H 142/52 H 160/57 H Pulse Oximetry 03/05/18 02:00 03/05/18 03:00 03/05/18 04:00 Temperature Pulse Rate 52 L 54 L 48 L Respiratory Rate 22 25 H 18 Blood Pressure 154/67 H 184/87 H 164/37 H Pulse Oximetry 03/05/18 05:00 03/05/18 06:00 03/05/18 07:00 Temperature Pulse Rate 50 L 46 L 46 L Respiratory Rate 17 16 17 Blood Pressure 183/64 H 151/55 H 156/57 H Pulse Oximetry 03/05/18 08:00 03/05/18 09:00 03/05/18 10:00 Temperature 98.5 F Pulse Rate 48 L 48 L 48 L Respiratory Rate 18 13 16 Blood Pressure 168/62 H 166/69 H 169/57 H Pulse Oximetry 96 03/05/18 11:00 03/05/18 11:02 03/05/18 12:00 Temperature 97.4 F L Pulse Rate 50 L 50 L 52 L Respiratory Rate 12 11 L 15 Blood Pressure 204/126 H 196/90 H 201/71 H Pulse Oximetry 98 03/05/18 12:24 03/05/18 13:00 03/05/18 14:00 Temperature Pulse Rate 48 L 48 L Respiratory Rate 15 16 Blood Pressure 183/75 H 145/64 H 140/59 L Pulse Oximetry 03/05/18 15:00 03/05/18 16:00 Temperature 97.1 F L Pulse Rate 48 L 51 L Respiratory Rate 16 25 H Blood Pressure 148/72 H 171/76 H Pulse Oximetry 98 Intake & Output 03/04/18 03/05/18 03/05/18 18:59 06:59 18:59 Intake Total 600 / 600 1000 / 1000 200 / 200 Output Total 100 / 100 460 / 460 Balance 500 / 500 540 / 540 200 / 200 Intake: IV 1000 / 1000 200 / 200 D5W/Normal Saline Inj 1,000 ML 1000 / 1000 200 / 200 @ 125 mls/hr IV.CONT .Q8H [facility] Rx#:[id number] Oral 600 / 600 Output: Urine 100 / 100 460 / 460 Other: # Voids 2 # Urine Diapers 2 Date of Last Bowel Movement 03/04/18 03/04/18 03/04/18 # Bowel Movements 2 2 Narrative: GENERAL: Alert with family at bedside. Poor memory. SKIN: Warm and dry. NECK: Supple, trachea midline. No JVD. CARDIOVASCULAR: Bradycardia. Regular rate and rhythm without murmurs, gallops, or rubs. RESPIRATORY: Breath sounds equal bilaterally. No accessory muscle use. GASTROINTESTINAL: Abdomen soft, non-tender, nondistended. MUSCULOSKELETAL: No cyanosis, or edema. BACK: Nontender without obvious deformity. No CVA tenderness. Results - Lab Results 03/05/18 04:40 03/05/18 04:40 Most recent lab results Calcium 7.9 mg/dL (8.5-10.1) L 03/05/18 04:40 Phosphorus 5.2 mg/dL (2.5-4.9) H 03/05/18 04:40 Magnesium 2.0 mg/dL (1.5-2.5) 03/05/18 04:40 - Image Kidney/bladder ultrasound: report reviewed Assessment and Plan - Assessment (1) Acute kidney injury superimposed on CKD Code(s): N17.9 - Acute kidney failure, unspecified; N18.9 - Chronic kidney disease, unspecified Status: Acute Plan: Acute on chronic kidney disease with a creatinine of 3.70 which has improved only slightly from admission creatinine of 4.20. MARII possibly prerenal vs ATN from intravascular volume depletion and dehydration. Most likely the cause of chronic renal failure is either Hypertensive renal disease, or NSAID related. Baseline creatinine is closer to to 2.10 to 2.50. Renal ultrasound with no acute findings. Recommend to continue IVF's will add sodium bicarbonate as HCO3 is low. Patient continues to appear to be dry. Urine sodium and creatinine is pending. UA still appears concentrated with specific gravity of 1.020. Patient urinary output is low, will monitor strict I+O may need Fair catheter if any difficulty with maintaining accurate I+O's. Avoid nephrotoxins including from NSAIDS, IV contrast, and aminoglycosides. Will monitor urinary output and labs. Palliative care is following with patient also. (2) Hypertension Code(s): I10 - Essential (primary) hypertension Status: Acute Plan: On hydralazine and amlodipine. Will monitor. <Aleksey Tolbert - Last Filed: 03/05/18 22:19> History of Present Illness Primary Care Provider: Allan Wheeler [facility] - Medical History Medical History: Medical History (Last Reviewed 03/04/18 @ 10:13 by Jose Alexander) Chronic kidney disease, stage IV (severe) Elevated cholesterol Fatty liver Glaucoma Hernia of abdominal cavity Hypertension - Surgical History Surgical History: Surgical History (Last Reviewed 03/04/18 @ 10:13 by Jose Alexander) History of - Family History Family History: Family History (Last Reviewed 03/01/18 @ 14:22 by JOSEFINA Koenig) Other Family history non-contributory Medications and Allergies Active Medications: Active Medications Acetaminophen (Tylenol) 650 mg PO Q4H PRN PRN Reason: Temp > 100.4 Al Hydroxide/Mg Hydroxide (Milk Of Magnesia Liq) 30 ml PO Q12H PRN PRN Reason: Mild Constipation Amlodipine Besylate (Norvasc) 5 mg PO DAILY [facility] Last Admin: 03/05/18 14:36 Dose: 5 mg Bisacodyl (Dulcolax Supp) 10 mg RECTAL DAILY PRN PRN Reason: SEVERE CONSITIPATION Calcitriol (Rocaltrol) 0.25 mcg PO DAILY [facility] Last Admin: 03/05/18 08:20 Dose: 0.25 mcg Clonidine HCl (Catapres) 0.1 mg PO Q6H PRN PRN Reason: SBP>160, DBP>90 Last Admin: 03/05/18 11:04 Dose: 0.1 mg Hydralazine HCl (Apresoline) 75 mg PO TID [facility] Last Admin: 03/05/18 17:59 Dose: 75 mg Sodium Bicarbonate 75 meq/ (Dextrose/Sodium Chloride) 1,075 mls @ 100 mls/hr IV.CONT .[id number] [facility] Last Admin: 03/05/18 17:59 Dose: 100 mls/hr Lactulose (Lactulose Liq) 30 ml PO DAILY PRN PRN Reason: SEVERE CONSITIPATION Levothyroxine Sodium (Synthroid) 88 mcg PO DAILY@0600 [facility] Last Admin: 03/05/18 07:42 Dose: 88 mcg Megestrol Acetate (Megace) 40 mg PO BID [facility] Last Admin: 03/05/18 20:44 Dose: 40 mg Ondansetron HCl (Zofran Inj) 4 mg IV.PUSH Q6H PRN PRN Reason: NAUSEA OR VOMITING Last Admin: 03/05/18 08:31 Dose: 4 mg Pantoprazole Sodium (Protonix) 20 mg PO DAILY [facility] Last Admin: 03/05/18 08:20 Dose: 20 mg Senna/Docusate Sodium (Sarah-Colace) 1 tab PO BID [facility] Last Admin: 03/05/18 20:44 Dose: Not Given Sennosides (Senokot) 17.2 mg PO Q12H PRN PRN Reason: Moderate Constipation Sertraline HCl (Zoloft) 50 mg PO DAILY [facility] Last Admin: 03/05/18 08:20 Dose: 50 mg Sodium Chloride (Ns Flush) 2 ml IV.FLUSH BID [facility] Last Admin: 03/05/18 20:44 Dose: 2 ml Sodium Chloride (Ns Flush) 2 ml IV.FLUSH PRN PRN PRN Reason: FLUSH AFTER USING IV ACCESS Temazepam (Restoril) 15 mg PO HS PRN PRN Reason: INSOMNIA Last Admin: 03/05/18 20:44 Dose: 15 mg Timolol Maleate (Timoptic 0.5% Drops) 1 drops EACH EYE BID [facility] Last Admin: 03/05/18 20:44 Dose: 1 drops Exam Vital signs: Vital Signs 03/04/18 23:00 03/05/18 00:00 03/05/18 01:00 Temperature Pulse Rate 52 L 46 L 46 L Respiratory Rate 18 18 34 H Blood Pressure 167/71 H 142/52 H 160/57 H Pulse Oximetry 03/05/18 02:00 03/05/18 03:00 03/05/18 04:00 Temperature Pulse Rate 52 L 54 L 48 L Respiratory Rate 22 25 H 18 Blood Pressure 154/67 H 184/87 H 164/37 H Pulse Oximetry 03/05/18 05:00 03/05/18 06:00 03/05/18 07:00 Temperature Pulse Rate 50 L 46 L 46 L Respiratory Rate 17 16 17 Blood Pressure 183/64 H 151/55 H 156/57 H Pulse Oximetry 03/05/18 08:00 03/05/18 09:00 03/05/18 10:00 Temperature 98.5 F Pulse Rate 48 L 48 L 48 L Respiratory Rate 18 13 16 Blood Pressure 168/62 H 166/69 H 169/57 H Pulse Oximetry 96 03/05/18 11:00 03/05/18 11:02 03/05/18 12:00 Temperature 97.4 F L Pulse Rate 50 L 50 L 52 L Respiratory Rate 12 11 L 15 Blood Pressure 204/126 H 196/90 H 201/71 H Pulse Oximetry 98 03/05/18 12:24 03/05/18 13:00 03/05/18 14:00 Temperature Pulse Rate 48 L 48 L Respiratory Rate 15 16 Blood Pressure 183/75 H 145/64 H 140/59 L Pulse Oximetry 03/05/18 15:00 03/05/18 16:00 03/05/18 17:00 Temperature 97.5 F L Pulse Rate 48 L 50 L 50 L Respiratory Rate 16 22 22 Blood Pressure 148/72 H 171/76 H 173/72 H Pulse Oximetry 98 03/05/18 18:00 03/05/18 20:00 03/05/18 21:00 Temperature 97.5 F L Pulse Rate 50 L 52 L 64 Respiratory Rate 17 16 19 Blood Pressure 154/66 H 146/52 H 149/61 H Pulse Oximetry 96 Intake & Output 03/05/18 03/05/18 03/06/18 06:59 18:59 06:59 Intake Total 1000 / 1000 800 / 800 480 / 480 Output Total 460 / 460 600 / 600 Balance 540 / 540 800 / 800 -120 / -120 Intake: IV 1000 / 1000 800 / 800 D5W/Normal Saline Inj 1,000 ML 1000 / 1000 800 / 800 @ 100 mls/hr IV.CONT .Q10H [facility] Rx#:[id number] Oral 480 / 480 Output: Urine 460 / 460 300 / 300 Emesis 300 / 300 Other: # Voids 2 Date of Last Bowel Movement 03/04/18 03/04/18 03/04/18 # Bowel Movements 2 Results - Lab Results 03/05/18 04:40 03/05/18 04:40 Most recent lab results Calcium 7.9 mg/dL (8.5-10.1) L 03/05/18 04:40 Phosphorus 5.2 mg/dL (2.5-4.9) H 03/05/18 04:40 Magnesium 2.0 mg/dL (1.5-2.5) 03/05/18 04:40 Assessment and Plan - Assessment (1) Acute kidney injury superimposed on CKD Code(s): N17.9 - Acute kidney failure, unspecified; N18.9 - Chronic kidney disease, unspecified Status: Acute Plan: Patient seen and examined. Has advance chronic kidney disease and develop MARII. Possibly pre renal. Continue IVF, follow the urine out put and BMP. (2) Hypertension Code(s): I10 - Essential (primary) hypertension Status: Acute
--- NOTE | 2018-03-05 17:27 | P.PNPAL ---
Reason for Visit Reason for visit: a. To assist with evaluation and management of symptoms including: Weakness, dizziness, depression b. To assist medical decision maker(s) with: better understanding of current medical conditions; weighing benefits/burdens of medical treatment options; making medical treatment decisions. Subjective Subjective/Interval History: This is a very pleasant 87-year-old [facility] female with an extensive past medical history of gastrointestinal disorders, hypothyroidism, CAD, CKD and frequent falls who came to the ER for evaluation of altered mental status. Patient reports waking up in the middle of the night and just not feeling right. She states that she is unsteady, dizzy and fell during the night, her head. She denied any neck pain or loss of consciousness did have some mild to moderate difficulty with recall. She had had a recent hospitalization positive for C. difficile and was discharged home with home health. She had refused rehab. The daughter reports using daily pillboxes which the patient ignores and states that she gets her own medications out of the bottles. She has an unstable gait and ambulates with a quad cane or a walker. Patient seen today for follow-up of symptom management of weakness, depression and dizziness. She is awake and alert, conversing with her daughter at bedside. She remains very weak but is participating in physical therapy. She is improving with her ambulation and walked 160 feet with contact-guard assist and mild assistance turning the walker. PT recommends continued therapy at [facility] which the patient and the daughter agreed to. She states she still has some dizziness when standing, mild to moderate, contributing to gait instability. She remains bradycardic and is receiving normal saline at 100mL/h. Amiodarone was stopped yesterday. She is on no other blockade medications. She is aware that she can no longer live alone and this causes her great sadness. She states she has always been very independent and able to take care of herself and she is sad but this is no longer the case. While she is aware that she needs the help, she wishes she did not and is having difficulty accepting that fact. She has a flat affect and frequently states "I just feel so bad". When asked if her feeling is physical as in a bodily symptom she says no but does admit to great sadness. . . Family/Friend Interactions: Her daughter Alice Walls) is at bedside. She had returned my call this morning and arranged for an afternoon conference to discuss DNR, placement options and also requested a hospice consultation. Hospice consult was issued and admission RNYarely met with the family to provide information. Family is aware that she is not eligible for hospice while undergoing rehabilitation, however, are considering hospice once she completes her course of rehab. She will likely need placement in an SENIOR CARE versus home with full-time caregiver. This is causing the patient some depression and sadness although she states herself that she does need help. During conference patient was seen by Ania Early APRN for nephrology. She noted the continued increase in renal indices and encouraged patient to drink more water. Patient states that she does not like water and this is at the root cause of her chronic dehydration. The daughter states she drinks approximately 12-18 cups of tea a day, but has never liked water. We reviewed CODE STATUS as well as patient's wishes. The patient participated in this discussion and made the decision for DO NOT RESUSCITATE, which had been her prior CODE STATUS. Given her continued renal insufficiency and poor renal status, the question was addressed as to whether or not the patient would accept dialysis if it were recommended and after discussion of what that entailed, the patient decided she would not. [place] DNR form was completed by the patient in the presence of her daughter and Yarely. . Objective Vital Signs: Vital Signs 03/04/18 18:00 03/04/18 19:00 03/04/18 20:00 Temperature Pulse Rate 46 L 46 L 50 L Respiratory Rate 19 17 22 Blood Pressure 130/58 L 153/57 H 156/62 H Pulse Oximetry 98 98 03/04/18 21:00 03/04/18 22:00 03/04/18 23:00 Temperature Pulse Rate 48 L 48 L 52 L Respiratory Rate 18 19 18 Blood Pressure 153/59 H 159/60 H 167/71 H Pulse Oximetry 03/05/18 00:00 03/05/18 01:00 03/05/18 02:00 Temperature Pulse Rate 46 L 46 L 52 L Respiratory Rate 18 34 H 22 Blood Pressure 142/52 H 160/57 H 154/67 H Pulse Oximetry 03/05/18 03:00 03/05/18 04:00 03/05/18 05:00 Temperature Pulse Rate 54 L 48 L 50 L Respiratory Rate 25 H 18 17 Blood Pressure 184/87 H 164/37 H 183/64 H Pulse Oximetry 03/05/18 06:00 03/05/18 07:00 03/05/18 08:00 Temperature 98.5 F Pulse Rate 46 L 46 L 48 L Respiratory Rate 16 17 18 Blood Pressure 151/55 H 156/57 H 168/62 H Pulse Oximetry 96 03/05/18 09:00 03/05/18 10:00 03/05/18 11:00 Temperature Pulse Rate 48 L 48 L 50 L Respiratory Rate 13 16 12 Blood Pressure 166/69 H 169/57 H 204/126 H Pulse Oximetry 03/05/18 11:02 03/05/18 12:00 03/05/18 12:24 Temperature 97.4 F L Pulse Rate 50 L 52 L Respiratory Rate 11 L 15 Blood Pressure 196/90 H 201/71 H 183/75 H Pulse Oximetry 98 03/05/18 13:00 03/05/18 14:00 03/05/18 15:00 Temperature Pulse Rate 48 L 48 L 48 L Respiratory Rate 15 16 16 Blood Pressure 145/64 H 140/59 L 148/72 H Pulse Oximetry 03/05/18 16:00 Temperature 97.1 F L Pulse Rate 51 L Respiratory Rate 25 H Blood Pressure 171/76 H Pulse Oximetry 98 Intake & Output 03/04/18 03/05/18 03/05/18 18:59 06:59 18:59 Intake Total 600 / 600 1000 / 1000 200 / 200 Output Total 100 / 100 460 / 460 Balance 500 / 500 540 / 540 200 / 200 Intake: IV 1000 / 1000 200 / 200 D5W/Normal Saline Inj 1,000 ML 1000 / 1000 200 / 200 @ 125 mls/hr IV.CONT .Q8H [facility] Rx#:[id number] Oral 600 / 600 Output: Urine 100 / 100 460 / 460 Other: # Voids 2 # Urine Diapers 2 Date of Last Bowel Movement 03/04/18 03/04/18 03/04/18 # Bowel Movements 2 2 Physical Exam: CONSTITUTIONAL/GENERAL: This is a thin, elderly patient, in no apparent distress. TUBES/LINES/DRAINS: PIV CARDIOVASCULAR: Bradycardic rate and regular rhythm without murmurs, gallops, or rubs. No JVD. Peripheral pulses symmetric. RESPIRATORY/CHEST: Symmetric, unlabored respirations. Clear to auscultation. Breath sounds equal bilaterally. No wheezes, rales, or rhonchi. GASTROINTESTINAL: Abdomen soft, nontender to palpation, nondistended. No hepato- splenomegaly, or palpable masses. No guarding. Bowel sounds present. GENITOURINARY: Without palpable bladder distension. MUSCULOSKELETAL: Extremities without clubbing, cyanosis, or edema. No joint tenderness or effusion noted. No calf tenderness. No mottling or clubbing. NEUROLOGICAL: Alert, oriented. Motor and sensory grossly within normal limits. Follows commands. Moves all extremities. PSYCHIATRIC: Flat affect, admits to sadness and depression regarding her living arrangements. . Diagnostic Tests Laboratory: Laboratory Results - last 72 hr 03/03/18 03/03/18 03/04/18 04:28 04:28 04:35 CBC w Diff Auto diff final WBC 8.2 RBC 3.36 L Hgb 9.7 L Hct 30.3 L MCV 90.0 MCH 28.9 MCHC 32.0 RDW 15.0 Plt Count 175 MPV 9.8 Neut % (Auto) 59.1 Lymph % (Auto) 22.4 [place] % (Auto) 13.0 H Eos % (Auto) 3.4 Baso % (Auto) 2.1 H Neut # (Auto) 4.8 Lymph # (Auto) 1.8 [place] # (Auto) 1.1 H Eos # (Auto) 0.3 Baso # (Auto) 0.2 WBC Differential . Differential Comment . Sodium 138 137 Potassium 4.2 4.4 Chloride 110 H 109 H Carbon Dioxide 16.1 L 16.4 L Anion Gap 12 12 BUN 53 H 56 H Creatinine 3.70 H 3.50 H Estimated GFR 12 L 12 L Random Glucose 88 91 Calcium 7.3 L* 7.6 L Calcium Adj for Albumin 9.1 Phosphorus Magnesium Albumin 1.8 L D Urine Color Urine Clarity Urine pH Ur Specific [place] Urine Protein Urine Glucose (UA) Urine Ketones Urine Occult Blood Urine Nitrate Urine Bilirubin Urine Urobilinogen Ur Leukocyte Esterase Urine WBC Ur Squamous Epith Cells Urine Bacteria Urine Mucus Micro UA Comment Ur Microscopic Review Urine Culture Comments 03/05/18 03/05/18 03/05/18 04:40 04:40 14:50 CBC w Diff Auto diff final WBC 9.0 RBC 3.46 L Hgb 9.9 L Hct 31.1 L MCV 89.9 MCH 28.7 MCHC 32.0 RDW 15.2 Plt Count 214 MPV 10.1 Neut % (Auto) 64.3 Lymph % (Auto) 17.5 [place] % (Auto) 14.6 H Eos % (Auto) 3.2 Baso % (Auto) 0.4 Neut # (Auto) 5.8 Lymph # (Auto) 1.6 [place] # (Auto) 1.3 H Eos # (Auto) 0.3 Baso # (Auto) 0.0 WBC Differential . Differential Comment . Sodium 137 Potassium 4.2 Chloride 109 H Carbon Dioxide 15.7 L Anion Gap 12 BUN 60 H Creatinine 3.70 H Estimated GFR 12 L Random Glucose 102 Calcium 7.9 L Calcium Adj for Albumin Phosphorus 5.2 H Magnesium 2.0 Albumin Urine Color Yellow Urine Clarity Clear Urine pH 6.0 Ur Specific [place] 1.020 Urine Protein 300 or greater H Urine Glucose (UA) Negative Urine Ketones Negative Urine Occult Blood Negative Urine Nitrate Negative Urine Bilirubin Negative Urine Urobilinogen 0.2 Ur Leukocyte Esterase Negative Urine WBC 0-5 Ur Squamous Epith Cells 0-5 Urine Bacteria Few H Urine Mucus Rare H Micro UA Comment Culture not ind Ur Microscopic Review Microscopic reviewed Urine Culture Comments Culture not ind Result Diagrams: 03/05/18 04:40 03/05/18 04:40 Imaging: ITS Impressions Cervical Spine CT 03/01/18 11:56 CONCLUSION: 1. No fracture is identified. 2. There is 4 mm of anterolisthesis of C4 on C5 of uncertain chronicity but may be related to the bilateral facet arthrosis. 3. Multilevel degenerative disc disease, as above, without spinal canal stenosis identified. Chest X-Ray 03/01/18 11:56 CONCLUSION: Mild bibasilar airspace opacity could represent atelectasis or airspace consolidation. Head CT 03/01/18 11:56 CONCLUSION: 1. Right posterior scalp soft tissue swelling. No fracture or acute intracranial abnormality is identified. 2. Chronic findings include generalized atrophy and chronic white matter changes. . Abdomen/Bladder Ultrasound 03/05/18 00:00 CONCLUSION: 1. Small echogenic kidneys consistent with chronic renal disease 2. 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 She was and had one daughter. She is now . 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 Spiritual: Voodoo derek. 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 Legal: Pending discussion with the daughter to evaluate advanced directive availability. Ethical issues impacting care: None noted. . Important Contacts: Daughter: Alice Walls) Other: Luther Morris . Prognosis: Her prognosis is guarded. Her primary problem is failure to thrive and dehydration. She is unable to take care of herself independently any longer. She declined SNF placement at her last admission but states that she will accept SNF admission. She has not been eating and drinking nor taking her medications appropriately. She has been having more frequent falls recently. She has an extensive medical history to include gastrointestinal, renal and cardiovascular disorders. She is at elevated risk of continued complications, decline and readmissions. . Code Status: No Code DNR Plan: PLAN: Legal decision maker: At this point the patient is oriented but has poor insight. She states her daughter is her decision-maker. The daughter states that paperwork is available but it has not yet been presented. Would recommend shared decision making at this time. Goals: To be determined. CODE STATUS: FULL CODE by default pending conversation with the daughter. SYMPTOMS: * Weakness: She is weak and is recommended to have rehab by physical therapy. She requires assistance from bed to chair, has an unstable gait and is at elevated risk for falls. She is improving with physical therapy, who is recommending short-term rehab. Patient is agreeable to go to rehab at this time however is not happy about the possibility that she will not be able to live alone again. She has fallen several times recently. * Dizziness: She continues to become dizzy when standing up particularly, likely related to dehydration and bradycardia. She continues to receive IV fluid and she feels that her symptoms are getting better with therapy. She is resistant to drinking water as she says it makes her nauseous. She is currently receiving IV fluid at 100 mL an hour. Kidney functions look slightly worse today. * Depression: Likely situational related to loss of independence, having to move out of the home she had with her . She feels sad that she needs help. She is receiving Zoloft 50 mg daily, which she had been on at home. Could consider increasing the dose to 75 mg daily. Palliative care will continue to follow the patient during hospital course as condition evolves, to assist patient/decision-maker with understanding of their medical conditions, weighing benefits/burdens of treatment options, for clarification of goals of treatment. Additionally will assist with any symptoms of palliative concern. . Attestation Attestation: To help prompt me to consider important information that might be impacting today's encounter and assessment, information from prior notes written by myself or my colleagues may have been "brought forward" into today's note. My signature on this note, however, is an attestation that I personally performed the exam, history, and/or decision-making noted today, and, unless otherwise indicated, the interactions with patient, family, and staff as well as the review of records all occurred today. I also attest that the listed assessment and stated plan reflect my best clinical judgment today based on the combination of historical information, prior notes, and today's exam/ interactions. When time spent is documented, it refers only to time spent today by the signer, or if indicated, combined time spent today by collaborating physician/nurse practitioner. .
[2018-03-05] MEDS: Sodium Bicarbonate 8.4% Inj 75 MEQ in Dextrose 5%/NaCl 0.45% Inj 1,000 ML IV.CONT SCH (17:59)
[2018-03-05] MEDS: hydrALAZINE 25 MG Tablet PO SCH (17:59)
[2018-03-05 18:14] LABS: Creatinine,Urine Random 67 mg/dL (27-300); Sodium,Urine Random 42 meq/L
[2018-03-06] MEDS: Sodium Bicarbonate 8.4% Inj 75 MEQ in Dextrose 5%/NaCl 0.45% Inj 1,000 ML IV.CONT SCH (04:04)
[2018-03-06 05:22] LABS: Hematocrit 28.9 % (35.0-46.0); Hemoglobin 9.3 gm/dL (11.6-15.3); Mean Corpuscular HGB Conc 32.1 % (32.0-36.0); Mean Corpuscular Hemoglobin 29.7 pg (27.0-34.0); Mean Corpuscular Volume 92.5 fL (80.0-100.0); Mean Platelet Volume 10.9 fL (7.0-11.0); Platelet Count 171 th/mm3 (150-450); Red Blood Count 3.13 mil/mm3 (4.00-5.30); Red Cell Distribution Width 16.2 % (11.6-17.2); White Blood Count 7.9 th/mm3 (4.0-11.0)
[2018-03-06] MEDS: Levothyroxine 88 MCG Tablet PO SCH (05:28)
[2018-03-06 08:22] LABS: Albumin 1.8 g/dL (3.4-5.0); Calcium 7.4 mg/dL (8.5-10.1); Carbon Dioxide 18.4 meq/L (21.0-32.0); Potassium 4.1 meq/L (3.5-5.1)
[2018-03-06 08:41] LABS: Phosphorus 4.9 mg/dL (2.5-4.9)
[2018-03-06] MEDS: hydrALAZINE 25 MG Tablet PO SCH (09:15)
[2018-03-06] MEDS: Calcitriol 0.25 MCG Capsule PO SCH (09:15)
[2018-03-06] MEDS: Timolol 0.5% Drops 5 ML Bottle EACH EYE SCH ×2 (09:15→20:41)
[2018-03-06] MEDS: Sertraline 50 MG Tablet PO SCH (09:16)
[2018-03-06] MEDS: Senna/Docusate Sodium 8.6/50 MG Tablet PO SCH ×2 (09:16→20:33)
[2018-03-06] MEDS: amLODIPine 5 MG Tablet PO SCH (09:16)
[2018-03-06] MEDS: Pantoprazole Sodium 20 MG DR Tablet PO SCH (09:16)
[2018-03-06] MEDS ORDERED: amLODIPine 5 MG Tablet PO ONE (11:30)
--- NOTE | 2018-03-06 11:55 | P.PNIM ---
Subjective Interval history: The patient was resting in bed. She said she still feels weak and knows she cannot go home. She did recently walk to the commode. She had no acute complaints at this time. Discussed with nursing. Physical Exam Vital signs: Vital Signs 03/05/18 12:00 18 12:24 03/05/18 13:00 Temperature 97.4 F L Pulse Rate 52 L 48 L Respiratory Rate 15 15 Blood Pressure 201/71 H 183/75 H 145/64 H Pulse Oximetry 98 03/05/18 14:00 03/05/18 15:00 03/05/18 16:00 Temperature 97.5 F L Pulse Rate 48 L 48 L 50 L Respiratory Rate 16 16 22 Blood Pressure 140/59 L 148/72 H 171/76 H Pulse Oximetry 98 03/05/18 17:00 03/05/18 18:00 03/05/18 20:00 Temperature 97.5 F L Pulse Rate 50 L 50 L 52 L Respiratory Rate 22 17 16 Blood Pressure 173/72 H 154/66 H 146/52 H Pulse Oximetry 96 03/05/18 21:00 03/05/18 22:00 03/05/18 23:00 Temperature Pulse Rate 64 52 L 50 L Respiratory Rate 19 17 17 Blood Pressure 149/61 H 125/46 L 138/48 L Pulse Oximetry 03/06/18 00:00 03/06/18 01:00 03/06/18 02:00 Temperature 98.5 F Pulse Rate 48 L 50 L 48 L Respiratory Rate 16 16 16 Blood Pressure 133/51 L 141/53 H 162/61 H Pulse Oximetry 03/06/18 03:00 03/06/18 04:00 03/06/18 05:00 Temperature 98.6 F Pulse Rate 46 L 46 L 46 L Respiratory Rate 16 15 14 Blood Pressure 155/72 H 194/65 H 189/76 H Pulse Oximetry 03/06/18 05:29 03/06/18 06:00 03/06/18 07:00 Temperature Pulse Rate 44 L 44 L 44 L Respiratory Rate 15 15 14 Blood Pressure 174/85 H 170/63 H 167/70 H Pulse Oximetry 03/06/18 07:40 03/06/18 08:00 03/06/18 09:00 Temperature 97.8 F Pulse Rate 44 L 44 L Respiratory Rate 15 14 Blood Pressure 188/74 H 190/84 H Pulse Oximetry 96 94 L 03/06/18 10:00 03/06/18 11:00 Temperature Pulse Rate 46 L 48 L Respiratory Rate 20 24 Blood Pressure 153/64 H 122/47 L Pulse Oximetry 98 Intake & Output 03/05/18 03/06/18 03/06/18 18:59 06:59 18:59 Intake Total 800 / 800 1555 / 1555 Output Total 1000 / 1000 Balance 800 / 800 555 / 555 Weight 46.8 kg Intake: IV 800 / 800 1075 / 1075 D5W/Normal Saline Inj 1,000 ML 800 / 800 @ 100 mls/hr IV.CONT .Q10H [facility] Rx#:[id number] Sodium Bicarbonate 8.4% Inj 75 1075 / 1075 MEQ In D5W/1/2 NS Inj 1,000 ML @ 100 mls/hr IV.CONT .[id number] [facility] Rx#:[id number] Oral 480 / 480 Output: Urine 300 / 300 Emesis 300 / 300 Urine Amount (Catheter) 400 / 400 Straight 400 / 400 Other: Date of Last Bowel Movement 03/04/18 03/04/18 Narrative: GENERAL: No distress. HEENT: Head is normocephalic without any lesions or masses noted. Facial features are symmetric. Eyes: Extraocular muscles are intact. Conjunctivae were clear. NECK: Supple without any masses. Trachea midline no deviation. CARDIAC: Regular rhythm, regular rate. S1/S2 are heard. 2/6 ejection murmur, no gallops or rubs. LUNGS: Clear to auscultation bilaterally. No wheeze, rhonchi or rales. No use of accessory muscles on inspiration or expiration. ABDOMEN: Soft, nontender. Nondistended. Bowel sounds heard in all 4 quadrants. No organomegaly or masses. Negative rebound, negative guarding. EXTREMITIES: No edema, pulses are equal bilaterally. No cyanosis or clubbing, increased skin turgor, obvious signs of dehydration. NEUROLOGY: Mood and affect appear appropriate. Cranial nerves II through XII grossly intact. Moving all extremities, speech is clear - Urinary Catheter Management Straight Cath placed during this visit: yes, but has since been removed by the nurse Reason for continuing: Not indwelling catheter Insertion date: 03/06/18 Insertion time: 03:00 Removal date: 03/06/18 Removal time: 03:05 Results - Labs CBC & Chem 7: 03/06/18 04:30 03/06/18 04:30 Laboratory Results - last 24 hr 03/05/18 03/05/18 03/06/18 14:50 14:50 03:05 WBC RBC Hgb Hct MCV MCH MCHC RDW Plt Count MPV Sodium Potassium Chloride Carbon Dioxide Anion Gap BUN Creatinine Estimated GFR Random Glucose Calcium Phosphorus Iron TIBC % Saturation Ferritin Albumin Urine Color Yellow Urine Clarity Clear Urine pH 6.0 Ur Specific [place] 1.020 Urine Protein 300 or greater H Urine Glucose (UA) Negative Urine Ketones Negative Urine Occult Blood Negative Urine Nitrate Negative Urine Bilirubin Negative Urine Urobilinogen 0.2 Ur Leukocyte Esterase Negative Urine WBC 0-5 Ur Squamous Epith Cells 0-5 Urine Bacteria Few H Urine Mucus Rare H Micro UA Comment Culture not ind Ur Microscopic Review Microscopic reviewed Urine Culture Comments Culture not ind Urine Osmolality 369 Ur Random Creatinine 67 Ur Random Sodium 42 03/06/18 03/06/18 04:30 04:30 WBC 7.9 RBC 3.13 L Hgb 9.3 L Hct 28.9 L MCV 92.5 MCH 29.7 MCHC 32.1 RDW 16.2 Plt Count 171 MPV 10.9 Sodium 138 Potassium 4.1 Chloride 109 H Carbon Dioxide 18.4 L Anion Gap 11 BUN 59 H Creatinine 3.70 H Estimated GFR 12 L Random Glucose 104 Calcium 7.4 L* Phosphorus 4.9 Iron 32 L TIBC 246 L % Saturation 13.0 L Ferritin 85 Albumin 1.8 L Urine Color Urine Clarity Urine pH Ur Specific [place] Urine Protein Urine Glucose (UA) Urine Ketones Urine Occult Blood Urine Nitrate Urine Bilirubin Urine Urobilinogen Ur Leukocyte Esterase Urine WBC Ur Squamous Epith Cells Urine Bacteria Urine Mucus Micro UA Comment Ur Microscopic Review Urine Culture Comments Urine Osmolality Ur Random Creatinine Ur Random Sodium Assessment and Plan - Assessment (1) Hypertensive emergency Code(s): I16.1 - Hypertensive emergency Status: Acute (2) Acute kidney injury superimposed on chronic kidney disease Code(s): N17.9 - Acute kidney failure, unspecified; N18.9 - Chronic kidney disease, unspecified Status: Acute (3) Diarrhea Code(s): R19.7 - Diarrhea, unspecified Status: Acute (4) Physical deconditioning Code(s): R53.81 - Other malaise Status: Acute (5) Contusion of scalp Code(s): S00.03XA - Contusion of scalp, initial encounter Status: Acute (6) At high risk for falls Code(s): Z91.81 - History of falling Status: Acute (7) At risk for medication noncompliance Code(s): Z91.89 - Other specified personal risk factors, not elsewhere classified Status: Acute (8) Urinary tract infection Code(s): N39.0 - Urinary tract infection, site not specified Status: Acute - Plan Hypertensive emergency, improved -Chest x-ray showing possible atelectasis versus airspace consolidation. No signs of acute pulmonary edema secondary to hypertensive emergency. Patient is afebrile, no leukocytosis, continue monitor for infection process. -Cardene drip was started in the ICU, has been discontinued, no longer requiring. -amlodipine increased. Continue hydralazine. -Clonidine as needed. Closed head injury secondary to fall at home CT scan did not indicate any acute abnormality -Continue frequent neuro check for postconcussion syndrome Acute renal failure superimposed on chronic kidney disease stage IV FENa 1.7%, suggesting intrinsic disease. -Continue monitor renal function. -Avoid nephrotoxins. -nephrology consult appreciated. Continue IVFs. Failure to thrive, malnutrition Palliative care consultation appreciated. -Case management consultation for detention facility placement -Dietitian consultation -PT/OT evaluations. -Continue Megace for appetite stimulant. -Dietary supplement with each meal. Bradycardia Was on amiodarone. -d/c amiodarone and monitor on telemetry. Hypothyroidism TSH greater than 100. -Levothyroxine increased. DVT prevention -Sequential compression devices, Discharge Planning: D/c to SNF with nephrology clearance (5) Contusion of scalp Qualifiers: Encounter type: initial encounter Qualified Code(s): S00.03XA - Contusion of scalp, initial encounter
[2018-03-06] MEDS ORDERED: hydrALAZINE 50 MG Tablet PO SCH (13:00)
[2018-03-06] MEDS: hydrALAZINE 50 MG Tablet PO SCH ×2 (13:28→17:29)
--- NOTE | 2018-03-06 14:58 | P.PNNP ---
Subjective Interval history: Patient is alert, sitting on the chair, on room air, no SOB. Physical Exam Vital signs: Vital Signs 03/05/18 15:00 03/05/18 16:00 03/05/18 17:00 Temperature 97.5 F L Pulse Rate 48 L 50 L 50 L Respiratory Rate 16 22 22 Blood Pressure 148/72 H 171/76 H 173/72 H Pulse Oximetry 98 03/05/18 18:00 03/05/18 20:00 03/05/18 21:00 Temperature 97.5 F L Pulse Rate 50 L 52 L 64 Respiratory Rate 17 16 19 Blood Pressure 154/66 H 146/52 H 149/61 H Pulse Oximetry 96 03/05/18 22:00 03/05/18 23:00 03/06/18 00:00 Temperature 98.5 F Pulse Rate 52 L 50 L 48 L Respiratory Rate 17 17 16 Blood Pressure 125/46 L 138/48 L 133/51 L Pulse Oximetry 03/06/18 01:00 03/06/18 02:00 03/06/18 03:00 Temperature 98.6 F Pulse Rate 50 L 48 L 46 L Respiratory Rate 16 16 16 Blood Pressure 141/53 H 162/61 H 155/72 H Pulse Oximetry 03/06/18 04:00 03/06/18 05:00 03/06/18 05:29 Temperature Pulse Rate 46 L 46 L 44 L Respiratory Rate 15 14 15 Blood Pressure 194/65 H 189/76 H 174/85 H Pulse Oximetry 03/06/18 06:00 03/06/18 07:00 03/06/18 07:40 Temperature Pulse Rate 44 L 44 L Respiratory Rate 15 14 Blood Pressure 170/63 H 167/70 H Pulse Oximetry 96 03/06/18 08:00 03/06/18 09:00 03/06/18 10:00 Temperature 97.8 F Pulse Rate 44 L 44 L 46 L Respiratory Rate 15 14 20 Blood Pressure 188/74 H 190/84 H 153/64 H Pulse Oximetry 95 98 03/06/18 11:00 Temperature Pulse Rate 48 L Respiratory Rate 24 Blood Pressure 122/47 L Pulse Oximetry Intake & Output 03/05/18 03/06/18 03/06/18 18:59 06:59 18:59 Intake Total 800 / 800 1555 / 1555 Output Total 1000 / 1000 Balance 800 / 800 555 / 555 Weight 46.8 kg Intake: IV 800 / 800 1075 / 1075 D5W/Normal Saline Inj 1,000 ML 800 / 800 @ 100 mls/hr IV.CONT .Q10H KATHERINE Rx#:[id number] Sodium Bicarbonate 8.4% Inj 75 1075 / 1075 MEQ In D5W/1/2 NS Inj 1,000 ML @ 100 mls/hr IV.CONT .[id number] KATHERINE Rx#:[id number] Oral 480 / 480 Output: Urine 300 / 300 Emesis 300 / 300 Urine Amount (Catheter) 400 / 400 Straight 400 / 400 Other: Date of Last Bowel Movement 03/04/18 03/04/18 Narrative: GENERAL: No distress. HEENT: Head is normocephalic without any lesions or masses noted. Facial features are symmetric. Eyes: Extraocular muscles are intact. Conjunctivae were clear. NECK: Supple without any masses. Trachea midline no deviation. CARDIAC: Regular rhythm, regular rate. S1/S2 are heard. 2/6 ejection murmur, no gallops or rubs. LUNGS: Clear to auscultation bilaterally. No wheeze, rhonchi or rales. No use of accessory muscles on inspiration or expiration. ABDOMEN: Soft, nontender. Nondistended. Bowel sounds heard in all 4 quadrants. No organomegaly or masses. Negative rebound, negative guarding. EXTREMITIES: No edema, pulses are equal bilaterally. No cyanosis or clubbing, increased skin turgor, obvious signs of dehydration. NEUROLOGY: Mood and affect appear appropriate. Cranial nerves II through XII grossly intact. Moving all extremities, speech is clear - Urinary Catheter Management Straight Cath placed during this visit: yes, but has since been removed by the nurse Reason for continuing: Not indwelling catheter Insertion date: 03/06/18 Insertion time: 03:00 Removal date: 03/06/18 Removal time: 03:05 Assessment and Plan - Assessment (1) Acute kidney injury superimposed on CKD Code(s): N17.9 - Acute kidney failure, unspecified; N18.9 - Chronic kidney disease, unspecified Status: Acute (2) Hypertension Code(s): I10 - Essential (primary) hypertension Status: Acute Plan: Patient with advance stage 4 chronic kidney disease and now develop MARII. Creatinine increase slightly from her baseline. GFR is only 12 ml/min. I discuss with the patient about Dialysis and she does not want Dialysis. K is normal and no acidosis. Not uremic, Palliative care following, Patient want to go to SNF and then to Hospice. Encourage oral intake, I will D/C IVF. Follow the urine out put and BMP.
[2018-03-07 04:44] LABS: Potassium 4.2 meq/L (3.5-5.1)
[2018-03-07 04:48] LABS: Calcium 7.9 mg/dL (8.5-10.1); Carbon Dioxide 20.1 meq/L (21.0-32.0)
[2018-03-07] MEDS: Levothyroxine 88 MCG Tablet PO SCH (06:35)
[2018-03-07] MEDS: Calcitriol 0.25 MCG Capsule PO SCH (08:20)
[2018-03-07] MEDS: Pantoprazole Sodium 20 MG DR Tablet PO SCH (08:28)
[2018-03-07] MEDS: Sertraline 50 MG Tablet PO SCH (08:28)
[2018-03-07] MEDS: Senna/Docusate Sodium 8.6/50 MG Tablet PO SCH ×2 (08:28→21:10)
[2018-03-07] MEDS: amLODIPine 10 MG Tablet PO SCH (08:28)
[2018-03-07] MEDS: Timolol 0.5% Drops 5 ML Bottle EACH EYE SCH ×2 (08:29→22:08)
[2018-03-07] MEDS: hydrALAZINE 50 MG Tablet PO SCH ×3 (08:30→17:28)
--- NOTE | 2018-03-07 09:00 | P.PNNP ---
Subjective Interval history: Patient is alert, sitting on the chair and eating better. Physical Exam Vital signs: Vital Signs 03/06/18 10:00 03/06/18 11:00 03/06/18 12:00 Temperature 97.5 F L Pulse Rate 46 L 48 L 44 L Respiratory Rate 20 24 14 Blood Pressure 153/64 H 122/47 L 109/56 L Pulse Oximetry 98 98 03/06/18 13:00 03/06/18 14:00 03/06/18 15:00 Temperature Pulse Rate 48 L 46 L 48 L Respiratory Rate 19 20 14 Blood Pressure 148/68 H 151/69 H 162/55 H Pulse Oximetry 97 97 98 03/06/18 16:00 03/06/18 17:00 03/06/18 18:00 Temperature 97.5 F L Pulse Rate 52 L 54 L 56 L Respiratory Rate 18 15 23 Blood Pressure 156/60 H 173/68 H 186/85 H Pulse Oximetry 98 99 99 03/06/18 19:00 03/06/18 19:17 03/06/18 20:00 Temperature 97.8 F Pulse Rate 53 L 53 L Respiratory Rate 18 Blood Pressure 187/85 H Pulse Oximetry 98 98 03/06/18 21:00 03/06/18 22:00 03/06/18 23:00 Temperature Pulse Rate 55 L 53 L 53 L Respiratory Rate Blood Pressure Pulse Oximetry 03/07/18 00:00 03/07/18 01:00 03/07/18 02:00 Temperature 98.4 F Pulse Rate 53 L 53 L 53 L Respiratory Rate 18 Blood Pressure 158/73 H Pulse Oximetry 97 03/07/18 02:55 03/07/18 04:10 03/07/18 05:00 Temperature 98.4 F Pulse Rate 53 L 50 L 52 L Respiratory Rate 18 Blood Pressure 162/77 H Pulse Oximetry 97 03/07/18 06:00 03/07/18 08:17 Temperature Pulse Rate 49 L Respiratory Rate Blood Pressure Pulse Oximetry 96 Intake & Output 03/06/18 03/07/18 03/07/18 18:59 06:59 18:59 Intake Total 1555 / 1555 240 / 240 Output Total 500 / 500 300 / 300 Balance 1055 / 1055 -60 / -60 Weight 48.8 kg Intake: IV 1075 / 1075 Sodium Bicarbonate 8.4% Inj 75 1075 / 1075 MEQ In D5W/1/2 NS Inj 1,000 ML @ 100 mls/hr IV.CONT .[id number] KATHERINE Rx#:[id number] Oral 480 / 480 240 / 240 Output: Urine 500 / 500 300 / 300 Other: # Voids 2 Date of Last Bowel Movement 03/04/18 03/07/18 # Bowel Movements 1 Narrative: GENERAL: No distress. HEENT: Head is normocephalic without any lesions or masses noted. Facial features are symmetric. Eyes: Extraocular muscles are intact. Conjunctivae were clear. NECK: Supple without any masses. Trachea midline no deviation. CARDIAC: Regular rhythm, regular rate. S1/S2 are heard. 2/6 ejection murmur, no gallops or rubs. LUNGS: Clear to auscultation bilaterally. No wheeze, rhonchi or rales. No use of accessory muscles on inspiration or expiration. ABDOMEN: Soft, nontender. Nondistended. Bowel sounds heard in all 4 quadrants. No organomegaly or masses. Negative rebound, negative guarding. EXTREMITIES: No edema, pulses are equal bilaterally. No cyanosis or clubbing, increased skin turgor, obvious signs of dehydration. NEUROLOGY: Mood and affect appear appropriate. Cranial nerves II through XII grossly intact. Moving all extremities, speech is clear - Urinary Catheter Management Straight Cath placed during this visit: yes, but has since been removed by the nurse Reason for continuing: Not indwelling catheter Insertion date: 03/06/18 Insertion time: 03:00 Removal date: 03/06/18 Removal time: 03:05 Assessment and Plan - Assessment (1) Acute kidney injury superimposed on CKD Code(s): N17.9 - Acute kidney failure, unspecified; N18.9 - Chronic kidney disease, unspecified Status: Acute Plan: Patient has advance chronic kidney disease and develop MARII. Possibly pre renal or ATN. Creatinine is almost same, not uremic. Patient does not want Dialysis. Hco3 is better, Encourage oral intake. follow the urine out put and BMP. (2) Hypertension Code(s): I10 - Essential (primary) hypertension Status: Acute Plan: Patient with advance stage 4 chronic kidney disease and now develop MARII. Creatinine increase slightly from her baseline. GFR is only 12 ml/min. I discuss with the patient about Dialysis and she does not want Dialysis. K is normal and no acidosis. Not uremic, Palliative care following, Patient want to go to SNF and then to Hospice. Encourage oral intake, I will D/C IVF. Follow the urine out put and BMP.
--- NOTE | 2018-03-07 12:30 | P.PNIM ---
Subjective Interval history: The patient was resting comfortably in bed. She is looking forward to going to rehab soon. She said she had a bowel movement today. She says she feels a lot better. Discussed with nursing. Physical Exam Vital signs: Vital Signs 03/06/18 13:00 03/06/18 14:00 03/06/18 15:00 Temperature Pulse Rate 48 L 46 L 48 L Respiratory Rate 19 20 14 Blood Pressure 148/68 H 151/69 H 162/55 H Pulse Oximetry 97 97 98 03/06/18 16:00 03/06/18 17:00 03/06/18 18:00 Temperature 97.5 F L Pulse Rate 52 L 54 L 56 L Respiratory Rate 18 15 23 Blood Pressure 156/60 H 173/68 H 186/85 H Pulse Oximetry 98 99 99 03/06/18 19:00 03/06/18 19:17 03/06/18 20:00 Temperature 97.8 F Pulse Rate 53 L 53 L Respiratory Rate 18 Blood Pressure 187/85 H Pulse Oximetry 98 98 03/06/18 21:00 03/06/18 22:00 03/06/18 23:00 Temperature Pulse Rate 55 L 53 L 53 L Respiratory Rate Blood Pressure Pulse Oximetry 03/07/18 00:00 03/07/18 01:00 03/07/18 02:00 Temperature 98.4 F Pulse Rate 53 L 53 L 53 L Respiratory Rate 18 Blood Pressure 158/73 H Pulse Oximetry 97 03/07/18 02:55 03/07/18 04:10 03/07/18 05:00 Temperature 98.4 F Pulse Rate 53 L 50 L 52 L Respiratory Rate 18 Blood Pressure 162/77 H Pulse Oximetry 97 03/07/18 06:00 03/07/18 08:00 03/07/18 08:17 Temperature 97.9 F Pulse Rate 49 L 52 L Respiratory Rate 16 Blood Pressure 179/57 H Pulse Oximetry 98 96 03/07/18 09:00 Temperature 97.9 F Pulse Rate 56 L Respiratory Rate 21 Blood Pressure 145/61 H Pulse Oximetry 97 Intake & Output 03/06/18 03/07/18 03/07/18 18:59 06:59 18:59 Intake Total 1555 / 1555 240 / 240 Output Total 500 / 500 300 / 300 Balance 1055 / 1055 -60 / -60 Weight 48.8 kg Intake: IV 1075 / 1075 Sodium Bicarbonate 8.4% Inj 75 1075 / 1075 MEQ In D5W/1/2 NS Inj 1,000 ML @ 100 mls/hr IV.CONT .[id number] KATHERINE Rx#:[id number] Oral 480 / 480 240 / 240 Output: Urine 500 / 500 300 / 300 Other: # Voids 2 Date of Last Bowel Movement 03/04/18 03/07/18 # Bowel Movements 1 Narrative: GENERAL: No distress. HEENT: Head is normocephalic without any lesions or masses noted. Facial features are symmetric. Eyes: Extraocular muscles are intact. Conjunctivae were clear. NECK: Supple without any masses. Trachea midline no deviation. CARDIAC: Regular rhythm, regular rate. S1/S2 are heard. 2/6 ejection murmur, no gallops or rubs. LUNGS: Clear to auscultation bilaterally. No wheeze, rhonchi or rales. No use of accessory muscles on inspiration or expiration. ABDOMEN: Soft, nontender. Mild distention. Bowel sounds heard in all 4 quadrants. No organomegaly or masses. Negative rebound, negative guarding. EXTREMITIES: No edema, pulses are equal bilaterally. No cyanosis or clubbing, increased skin turgor, obvious signs of dehydration. NEUROLOGY: Mood and affect appear appropriate. Cranial nerves II through XII grossly intact. Moving all extremities, speech is clear - Urinary Catheter Management Straight Cath placed during this visit: yes, but has since been removed by the nurse Reason for continuing: Not indwelling catheter Insertion date: 03/06/18 Insertion time: 03:00 Removal date: 03/06/18 Removal time: 03:05 Results - Labs CBC & Chem 7: 03/06/18 04:30 03/07/18 04:06 Laboratory Results - last 24 hr 03/07/18 04:06 Sodium 138 Potassium 4.2 Chloride 106 Carbon Dioxide 20.1 L Anion Gap 12 BUN 59 H Creatinine 3.60 H Estimated GFR 12 L Random Glucose 141 H Calcium 7.9 L Assessment and Plan - Assessment (1) Hypertensive emergency Code(s): I16.1 - Hypertensive emergency Status: Acute (2) Acute kidney injury superimposed on chronic kidney disease Code(s): N17.9 - Acute kidney failure, unspecified; N18.9 - Chronic kidney disease, unspecified Status: Acute (3) Diarrhea Code(s): R19.7 - Diarrhea, unspecified Status: Acute (4) Physical deconditioning Code(s): R53.81 - Other malaise Status: Acute (5) Contusion of scalp Code(s): S00.03XA - Contusion of scalp, initial encounter Status: Acute (6) At high risk for falls Code(s): Z91.81 - History of falling Status: Acute (7) At risk for medication noncompliance Code(s): Z91.89 - Other specified personal risk factors, not elsewhere classified Status: Acute (8) Urinary tract infection Code(s): N39.0 - Urinary tract infection, site not specified Status: Acute - Plan Hypertensive emergency, improved -Chest x-ray showing possible atelectasis versus airspace consolidation. No signs of acute pulmonary edema secondary to hypertensive emergency. Patient is afebrile, no leukocytosis, continue monitor for infection process. -Cardene drip was started in the ICU, has been discontinued, no longer requiring. -amlodipine increased. Continue hydralazine. -Clonidine as needed. Closed head injury secondary to fall at home CT scan did not indicate any acute abnormality -Continue frequent neuro check for postconcussion syndrome. Acute renal failure superimposed on chronic kidney disease stage IV FENa 1.7%, suggesting intrinsic disease. -Continue monitor renal function. -Avoid nephrotoxins. -nephrology consult appreciated. Follow BMP. Failure to thrive, malnutrition Palliative care consultation appreciated. -Case management consultation for assisted facility placement -Dietitian consultation -PT/OT evaluations. -Continue Megace for appetite stimulant. -Dietary supplement with each meal. Bradycardia Was on amiodarone. -d/c amiodarone and monitor on telemetry. Improved. Hypothyroidism TSH greater than 100. -Levothyroxine increased. -will need outpt follow-up. DVT prevention -Sequential compression devices Discharge Planning: D/c to SNF with nephrology clearance (5) Contusion of scalp Qualifiers: Encounter type: initial encounter Qualified Code(s): S00.03XA - Contusion of scalp, initial encounter
--- NOTE | 2018-03-07 14:02 | XR ---
EXAM DATE: 03/07/2018 1:39 PM EST AGE/SEX: 87 years / Female INDICATIONS: Abdominal distention. CLINICAL DATA: This is the patient's initial encounter. Patient reports that signs and symptoms have been present for 4 - 6 days and indicates a pain score of 0/10. MEDICAL/SURGICAL HISTORY: Hypercholesterolemia. Hypertension. Chronic kidney disease IV. Fatty liver, Hernia of abdominal cavity. section. COMPARISON: [facility] [place], GI LAB WIRE DILATATION, 12/26/2016. . FINDINGS: Abdomen is relatively gasless. Bibasilar parental changes are noted worse on the left. There are no abdominal calcifications. There is no free air. CONCLUSION: Abdomen is relatively gasless without significant gaseous distention Electronically signed by: Levy Menjivar MD Board Certified Radiologist 03/07/2018 2:01 PM EST
[2018-03-08] MEDS: Levothyroxine 88 MCG Tablet PO SCH (05:59)
[2018-03-08] MEDS: Sertraline 50 MG Tablet PO SCH (08:45)
[2018-03-08] MEDS: Calcitriol 0.25 MCG Capsule PO SCH (08:46)
[2018-03-08] MEDS: amLODIPine 10 MG Tablet PO SCH (08:46)
[2018-03-08] MEDS: Timolol 0.5% Drops 5 ML Bottle EACH EYE SCH ×2 (08:46→22:06)
[2018-03-08] MEDS: hydrALAZINE 50 MG Tablet PO SCH ×4 (08:46→22:05)
[2018-03-08] MEDS: Senna/Docusate Sodium 8.6/50 MG Tablet PO SCH ×2 (08:46→22:04)
[2018-03-08] MEDS: Pantoprazole Sodium 20 MG DR Tablet PO SCH (08:47)
[2018-03-08 08:50] LABS: Potassium 4.6 meq/L (3.5-5.1)
[2018-03-08 08:52] LABS: Calcium 7.8 mg/dL (8.5-10.1)
[2018-03-08 08:53] LABS: Carbon Dioxide 20.6 meq/L (21.0-32.0)
--- NOTE | 2018-03-08 12:14 | P.PNIM ---
Subjective Interval history: The patient was resting in bed. She endorsed some mild abdominal discomfort. She was looking forward to being discharged. Physical Exam Vital signs: Vital Signs 03/07/18 17:25 03/07/18 20:00 03/07/18 20:15 Temperature 96.8 F L 97.4 F L Pulse Rate 60 61 Respiratory Rate 18 Blood Pressure 180/70 H 152/66 H Pulse Oximetry 95 92 L 96 03/08/18 00:00 03/08/18 04:00 03/08/18 08:00 Temperature 96.2 F L 97.9 F Pulse Rate 65 63 58 L Respiratory Rate 20 20 Blood Pressure 178/81 H 170/74 H Pulse Oximetry 96 93 L 03/08/18 08:05 Temperature Pulse Rate Respiratory Rate Blood Pressure Pulse Oximetry 94 L Intake & Output 03/07/18 03/08/18 03/08/18 18:59 06:59 18:59 Intake Total 120 / 120 120 / 120 Output Total 250 / 250 Balance -250 / -250 120 / 120 120 / 120 Weight 49.5 kg Intake: Oral 120 / 120 120 / 120 Output: Urine 250 / 250 Other: # Voids 2 Date of Last Bowel Movement 03/04/18 03/08/18 Narrative: GENERAL: No distress. HEENT: Head is normocephalic without any lesions or masses noted. Facial features are symmetric. Eyes: Extraocular muscles are intact. NECK: Supple without any masses. Trachea midline no deviation. CARDIAC: Regular rhythm, regular rate. S1/S2 are heard. 2/6 ejection murmur, no gallops or rubs. LUNGS: Clear to auscultation bilaterally. No wheeze, rhonchi or rales. No use of accessory muscles on inspiration or expiration. ABDOMEN: Soft, nontender. Mild distention. Bowel sounds heard in all 4 quadrants. No organomegaly or masses. Negative rebound, negative guarding. EXTREMITIES: No edema, pulses are equal bilaterally. No cyanosis or clubbing, increased skin turgor, obvious signs of dehydration. NEUROLOGY: Mood and affect appear appropriate. Cranial nerves II through XII grossly intact. Moving all extremities, speech is clear - Urinary Catheter Management Straight Cath placed during this visit: yes, but has since been removed by the nurse Reason for continuing: Not indwelling catheter Insertion date: 03/06/18 Insertion time: 03:00 Removal date: 03/06/18 Removal time: 03:05 Results - Labs CBC & Chem 7: 03/06/18 04:30 03/08/18 07:20 Laboratory Results - last 24 hr 03/08/18 07:20 Sodium 138 Potassium 4.6 Chloride 106 Carbon Dioxide 20.6 L Anion Gap 11 BUN 60 H Creatinine 3.60 H Estimated GFR 12 L Random Glucose 87 Calcium 7.8 L - Imaging Impressions Abdomen X-Ray 03/07/18 00:00 CONCLUSION: Abdomen is relatively gasless without significant gaseous distention Assessment and Plan - Assessment (1) Hypertensive emergency Code(s): I16.1 - Hypertensive emergency Status: Acute (2) Acute kidney injury superimposed on chronic kidney disease Code(s): N17.9 - Acute kidney failure, unspecified; N18.9 - Chronic kidney disease, unspecified Status: Acute (3) Diarrhea Code(s): R19.7 - Diarrhea, unspecified Status: Acute (4) Physical deconditioning Code(s): R53.81 - Other malaise Status: Acute (5) Contusion of scalp Code(s): S00.03XA - Contusion of scalp, initial encounter Status: Acute (6) At high risk for falls Code(s): Z91.81 - History of falling Status: Acute (7) At risk for medication noncompliance Code(s): Z91.89 - Other specified personal risk factors, not elsewhere classified Status: Acute (8) Urinary tract infection Code(s): N39.0 - Urinary tract infection, site not specified Status: Acute - Plan Hypertensive emergency, improved -Chest x-ray showing possible atelectasis versus airspace consolidation. No signs of acute pulmonary edema secondary to hypertensive emergency. Patient is afebrile, no leukocytosis, continue monitor for infection process. -Cardene drip was started in the ICU, has been discontinued, no longer requiring. -amlodipine increased. Continue hydralazine, increase to QID dosing. -Clonidine as needed. Closed head injury secondary to fall at home CT scan did not indicate any acute abnormality -Continue frequent neuro check for postconcussion syndrome. Acute renal failure superimposed on chronic kidney disease stage IV FENa 1.7%, suggesting intrinsic disease. -Continue monitor renal function. -Avoid nephrotoxins. -nephrology consult appreciated. She does not want dialysis. Follow BMP. Stable. Will need outpt follow-up. Failure to thrive, malnutrition Palliative care consultation appreciated. -Case management consultation for [facility] facility placement -Dietitian consultation -PT/OT evaluations. -Continue Megace for appetite stimulant. -Dietary supplement with each meal. Bradycardia Was on amiodarone. -d/c amiodarone and monitor on telemetry. Improved. Hypothyroidism TSH greater than 100. -Levothyroxine increased. -will need outpt follow-up. DVT prevention -Sequential compression devices Discharge Planning: D/c to SNF when received auth (5) Contusion of scalp Qualifiers: Encounter type: initial encounter Qualified Code(s): S00.03XA - Contusion of scalp, initial encounter
--- NOTE | 2018-03-08 20:42 | P.PNNP ---
Subjective Interval history: Patient seen in the afternoon, no SOB, eating better, not in distress. Physical Exam Vital signs: Vital Signs 03/08/18 00:00 03/08/18 04:00 03/08/18 08:00 Temperature 96.2 F L 97.9 F Pulse Rate 65 63 58 L Respiratory Rate 20 20 Blood Pressure 178/81 H 170/74 H Pulse Oximetry 96 93 L 03/08/18 08:05 03/08/18 12:00 03/08/18 16:00 Temperature 97.1 F L 96.8 F L Pulse Rate 59 L 57 L Respiratory Rate 20 20 Blood Pressure 148/67 H 153/67 H Pulse Oximetry 94 L 94 L 95 Intake & Output 03/08/18 03/08/18 03/09/18 06:59 18:59 06:59 Intake Total 120 / 120 690 / 690 Output Total 250 / 250 Balance 120 / 120 440 / 440 Weight 49.5 kg Intake: Oral 120 / 120 690 / 690 Output: Urine 250 / 250 Other: # Voids 2 1 Date of Last Bowel Movement 03/08/18 # Bowel Movements 2 # Incontinent Bowel Movements 1 Narrative: GENERAL: No distress. HEENT: Head is normocephalic without any lesions or masses noted. Facial features are symmetric. Eyes: Extraocular muscles are intact. NECK: Supple without any masses. Trachea midline no deviation. CARDIAC: Regular rhythm, regular rate. S1/S2 are heard. 2/6 ejection murmur, no gallops or rubs. LUNGS: Clear to auscultation bilaterally. No wheeze, rhonchi or rales. No use of accessory muscles on inspiration or expiration. ABDOMEN: Soft, nontender. Mild distention. Bowel sounds heard in all 4 quadrants. No organomegaly or masses. Negative rebound, negative guarding. EXTREMITIES: No edema, pulses are equal bilaterally. No cyanosis or clubbing, increased skin turgor, obvious signs of dehydration. NEUROLOGY: Mood and affect appear appropriate. Cranial nerves II through XII grossly intact. Moving all extremities, speech is clear - Urinary Catheter Management Straight Cath placed during this visit: yes, but has since been removed by the nurse Reason for continuing: Not indwelling catheter Insertion date: 03/06/18 Insertion time: 03:00 Removal date: 03/06/18 Removal time: 03:05 Assessment and Plan - Assessment (1) Acute kidney injury superimposed on CKD Code(s): N17.9 - Acute kidney failure, unspecified; N18.9 - Chronic kidney disease, unspecified Status: Acute Plan: Patient has advance chronic kidney disease and develop MARII. Possibly pre renal or ATN. Creatinine is almost same, not uremic. Patient does not want Dialysis. Hco3 is normal and K is also normal. Encourage oral intake. No symptoms of uremia, patient want to go to Rehab and then possible Hospice. follow the urine out put and BMP. (2) Hypertension Code(s): I10 - Essential (primary) hypertension Status: Acute Plan: Patient with advance stage 4 chronic kidney disease and now develop MARII. Creatinine increase slightly from her baseline. GFR is only 12 ml/min. I discuss with the patient about Dialysis and she does not want Dialysis. K is normal and no acidosis. Not uremic, Palliative care following, Patient want to go to SNF and then to Hospice. Encourage oral intake, I will D/C IVF. Follow the urine out put and BMP.
[2018-03-09] MEDS: Levothyroxine 88 MCG Tablet PO SCH (05:46)
[2018-03-09] MEDS: Senna/Docusate Sodium 8.6/50 MG Tablet PO SCH (08:43)
[2018-03-09] MEDS: hydrALAZINE 50 MG Tablet PO SCH ×2 (08:43→12:59)
[2018-03-09] MEDS: amLODIPine 10 MG Tablet PO SCH (08:43)
[2018-03-09] MEDS: Calcitriol 0.25 MCG Capsule PO SCH (08:43)
[2018-03-09] MEDS: Pantoprazole Sodium 20 MG DR Tablet PO SCH (08:44)
[2018-03-09] MEDS: Sertraline 50 MG Tablet PO SCH (08:44)
[2018-03-09] MEDS: Timolol 0.5% Drops 5 ML Bottle EACH EYE SCH (08:45)
--- NOTE | 2018-03-09 12:35 | P.PNIM ---
Subjective Interval history: The patient says she felt a lot better than she did yesterday. She said yesterday she felt really bad. She is currently tolerating a diet today. She has a little abdominal discomfort. Physical Exam Vital signs: Vital Signs 03/08/18 16:00 03/08/18 20:00 03/08/18 21:30 Temperature 96.8 F L 97.0 F L Pulse Rate 57 L 59 L Respiratory Rate 20 17 Blood Pressure 153/67 H 158/71 H Pulse Oximetry 95 95 94 L 03/09/18 00:00 03/09/18 04:00 03/09/18 08:00 Temperature 97.0 F L 97.2 F L 97.4 F L Pulse Rate 59 L 63 58 L Respiratory Rate 19 19 16 Blood Pressure 149/68 H 187/82 H 181/82 H Pulse Oximetry 93 L 95 94 L 03/09/18 10:07 Temperature Pulse Rate Respiratory Rate Blood Pressure Pulse Oximetry 95 Intake & Output 03/08/18 03/09/18 03/09/18 18:59 06:59 18:59 Intake Total 690 / 690 100 / 100 Output Total 250 / 250 Balance 440 / 440 100 / 100 Intake: Oral 690 / 690 100 / 100 Output: Urine 250 / 250 Other: # Voids 1 Date of Last Bowel Movement 03/08/18 03/08/18 # Bowel Movements 2 # Incontinent Bowel Movements 1 Narrative: GENERAL: No distress. HEENT: Head is normocephalic without any lesions or masses noted. Facial features are symmetric. Eyes: Extraocular muscles are intact. NECK: Supple without any masses. Trachea midline no deviation. CARDIAC: Regular rhythm, regular rate. S1/S2 are heard. 2/6 ejection murmur, no gallops or rubs. LUNGS: Clear to auscultation bilaterally. No wheeze, rhonchi or rales. No use of accessory muscles on inspiration or expiration. ABDOMEN: Soft, nontender. Mild distention. Bowel sounds heard in all 4 quadrants. No organomegaly or masses. Negative rebound, negative guarding. EXTREMITIES: No edema, pulses are equal bilaterally. No cyanosis or edema. NEUROLOGY: Mood and affect appear appropriate. Cranial nerves II through XII grossly intact. Moving all extremities, speech is clear - Urinary Catheter Management Straight Cath placed during this visit: yes, but has since been removed by the nurse Reason for continuing: Not indwelling catheter Insertion date: 03/06/18 Insertion time: 03:00 Removal date: 03/06/18 Removal time: 03:05 Results - Labs CBC & Chem 7: 03/06/18 04:30 03/08/18 07:20 Assessment and Plan - Assessment (1) Hypertensive emergency Code(s): I16.1 - Hypertensive emergency Status: Acute (2) Acute kidney injury superimposed on chronic kidney disease Code(s): N17.9 - Acute kidney failure, unspecified; N18.9 - Chronic kidney disease, unspecified Status: Acute (3) Diarrhea Code(s): R19.7 - Diarrhea, unspecified Status: Acute (4) Physical deconditioning Code(s): R53.81 - Other malaise Status: Acute (5) Contusion of scalp Code(s): S00.03XA - Contusion of scalp, initial encounter Status: Acute (6) At high risk for falls Code(s): Z91.81 - History of falling Status: Acute (7) At risk for medication noncompliance Code(s): Z91.89 - Other specified personal risk factors, not elsewhere classified Status: Acute (8) Urinary tract infection Code(s): N39.0 - Urinary tract infection, site not specified Status: Acute - Plan Hypertensive emergency, improved -Chest x-ray showing possible atelectasis versus airspace consolidation. No signs of acute pulmonary edema secondary to hypertensive emergency. Patient is afebrile, no leukocytosis, continue monitor for infection process. -Cardene drip was started in the ICU, has been discontinued, no longer requiring. -amlodipine increased. Continue hydralazine, increase to QID dosing. -Clonidine BID added. Closed head injury secondary to fall at home CT scan did not indicate any acute abnormality -Continue frequent neuro check for postconcussion syndrome. Acute renal failure superimposed on chronic kidney disease stage IV FENa 1.7%, suggesting intrinsic disease. -Continue monitor renal function. -Avoid nephrotoxins. -nephrology consult appreciated. She does not want dialysis. Follow BMP. Stable. Will need outpt follow-up. Failure to thrive, malnutrition Palliative care consultation appreciated. -Case management consultation for halfway facility placement -Dietitian consultation -PT/OT evaluations. -Continue Megace for appetite stimulant. -Dietary supplement with each meal. Bradycardia Was on amiodarone. -d/c amiodarone and monitor on telemetry. Improved. Hypothyroidism TSH greater than 100. -Levothyroxine increased. -will need outpt follow-up. DVT prevention -Sequential compression devices Discharge Planning: D/c to SNF when received auth (5) Contusion of scalp Qualifiers: Encounter type: initial encounter Qualified Code(s): S00.03XA - Contusion of scalp, initial encounter
--- NOTE | 2018-03-09 12:50 | P.DS ---
Date of admission: 03/01/18 14:02 Primary care physician: Allan Wheeler Anticipated date of discharge: 03/09/18 Brief History from admission: 87-year-old female with known history of hypertension, hyperlipidemia , chronic kidney disease stage IV who presented to the hospital for evaluation of unable to care for herself. Patient did have recent hospitalization from until 02/11/18. During the hospitalization patient was unable to care for herself at that time. It was recommended that the patient be discharged to rehab facility however patient did not want to go there and was discharged home with home health care. Patient was undergoing outpatient care with home health care with aids. As indicated the patient was rather noncompliant with her medications. Not taking them as she is supposed to. Patient has not been eating or drinking. Patient cannot tell me exactly last time that she ate anything or how much. Family at bedside indicated that home health care recommended hospice. However no consultation was made at that time. Apparently the patient got up in the middle the night and is not feeling well and she did fall last night hitting her head. So the daughter brought the patient in for evaluation. Patient was found to have multiple medical problems which is directly proportionate to the patient's noncompliance, failure to thrive, failure to participate in care. Patient with acute renal failure, hypertensive emergency, possible pneumonia. Patient will be admitted the hospital for management. Did discuss with daughter and patient about palliative care evaluation. Did try to obtain DNR status, however patient is not orientated to year, date. The daughter indicates that the patient has in her paperwork a DO NOT RESUSCITATE, however the daughter does not have it on her at this time. She indicates that it is on file here at the hospital. DS: Diagnosis - Discharge Diagnosis (1) Hypertensive emergency Status: Acute (2) Acute kidney injury superimposed on chronic kidney disease Status: Acute (3) Diarrhea Status: Acute (4) Physical deconditioning Status: Acute (5) Contusion of scalp Status: Acute (6) At high risk for falls Status: Acute (7) At risk for medication noncompliance Status: Acute (8) Urinary tract infection Status: Acute DS: Summary Hospital Course: Hypertensive emergency Chest x-ray showing possible atelectasis versus airspace consolidation. Cardene drip was started in the ICU, which has been discontinued. Amlodipine was increased. We increased hydralazine to QID dosing. Clonidine was added. She will follow up with her PCP. Fall at home CT scan did not indicate any acute abnormality. We continued neuro checks. She worked with PT. Acute renal failure superimposed on chronic kidney disease stage IV FENa 1.7%, suggesting intrinsic disease. We avoided nephrotoxins. Nephrology was consulted. She did not want dialysis. BMP remained stable. She will need outpt follow-up. Failure to thrive/malnutrition Palliative care was consulted. Case management was consulted for fpc facility placement. Dietitian was consulted. Megace and dietary supplements were added. PT/OT worked with the pt. She will be discharged to a SNF. Bradycardia Was on amiodarone which was discontinued. Improved. Would d/c timolol eye drops if continues. Hypothyroidism TSH greater than 100. Levothyroxine increased. She will need outpt follow-up. - Time Spent with Patient Total time spent providing and/or coordinating discharge services: Greater than 30 minutes Exam Vital signs: Vital Signs 03/08/18 16:00 03/08/18 20:00 03/08/18 21:30 Temperature 96.8 F L 97.0 F L Pulse Rate 57 L 59 L Respiratory Rate 20 17 Blood Pressure 153/67 H 158/71 H Pulse Oximetry 95 95 94 L 03/09/18 00:00 03/09/18 04:00 03/09/18 08:00 Temperature 97.0 F L 97.2 F L 97.4 F L Pulse Rate 59 L 63 58 L Respiratory Rate 19 19 16 Blood Pressure 149/68 H 187/82 H 181/82 H Pulse Oximetry 93 L 95 94 L 03/09/18 10:07 Temperature Pulse Rate Respiratory Rate Blood Pressure Pulse Oximetry 95 Intake & Output 03/08/18 03/09/18 03/09/18 18:59 06:59 18:59 Intake Total 690 / 690 100 / 100 Output Total 250 / 250 Balance 440 / 440 100 / 100 Intake: Oral 690 / 690 100 / 100 Output: Urine 250 / 250 Other: # Voids 1 Date of Last Bowel Movement 03/08/18 03/08/18 # Bowel Movements 2 # Incontinent Bowel Movements 1 Narrative: GENERAL: No distress. HEENT: Head is normocephalic without any lesions or masses noted. Facial features are symmetric. Eyes: Extraocular muscles are intact. NECK: Supple without any masses. Trachea midline no deviation. CARDIAC: Regular rhythm, regular rate. S1/S2 are heard. 2/6 ejection murmur, no gallops or rubs. LUNGS: Clear to auscultation bilaterally. No wheeze, rhonchi or rales. No use of accessory muscles on inspiration or expiration. ABDOMEN: Soft, nontender. Mild distention. Bowel sounds heard in all 4 quadrants. No organomegaly or masses. Negative rebound, negative guarding. EXTREMITIES: No edema, pulses are equal bilaterally. No cyanosis or edema. NEUROLOGY: Mood and affect appear appropriate. Cranial nerves II through XII grossly intact. Moving all extremities, speech is clear Results Procedures completed during hospitalization: None - Impressions ITS Impressions Cervical Spine CT 03/01/18 11:56 CONCLUSION: 1. No fracture is identified. 2. There is 4 mm of anterolisthesis of C4 on C5 of uncertain chronicity but may be related to the bilateral facet arthrosis. 3. Multilevel degenerative disc disease, as above, without spinal canal stenosis identified. Chest X-Ray 03/01/18 11:56 CONCLUSION: Mild bibasilar airspace opacity could represent atelectasis or airspace consolidation. Head CT 03/01/18 11:56 CONCLUSION: 1. Right posterior scalp soft tissue swelling. No fracture or acute intracranial abnormality is identified. 2. Chronic findings include generalized atrophy and chronic white matter changes. . Abdomen/Bladder Ultrasound 03/05/18 00:00 CONCLUSION: 1. Small echogenic kidneys consistent with chronic renal disease 2. Moderate ascites Abdomen X-Ray 03/07/18 00:00 CONCLUSION: Abdomen is relatively gasless without significant gaseous distention Discharge Plan - Discharge Disposition Patient Disposition: 03 Discharge to SNF - Discharge Condition Condition: Stable - Discharge Order Discharge Orders: Discharge Order (Routine); Ordered 03/09/18 Ordered By: Jose Bustamante - Discharge Details Anticipated Discharge Date: 03/09/18 - Physicians Team Attending Provider: Jose Bustamante Other Providers: Cristina Barry MD ; [employer] ; [facility] ; [facility] ; Aleksey Tolbert MD
[2018-03-09 13:08] VITALS: BP 137/62; PULSE 54; RESP 20; TEMP 97.6; O2SAT 97
== END 2018-03-09 14:50 ==
LOC: PHED 11:16 → PHEDA 14:02 → PHICU 16:43 → PH3 03-07 16:56
PROVIDERS: ADMIT Hospitalist; ATTEND Hospitalist